=== PATIENT | female | born 1950 | race Caucasian/White ===

== ENCOUNTER → 2017-06-16 | Outpatient (CLI) | payer MEDICARE, OTHER ==
[~2017-06-16] MED LIST: ADV230RPT INH; ALPR-460 PO; ASCO-182 PO; ASPI-1471 PO; AZEL23SP NS; BUDE10.2 INH; CA C1TAB6 PO; CHOL10005 PO; CRESTOR; LEV125 PO; LOVAZA1PT GT; LOVAZA1PT PO; MONT10TA4 PO; NIAC500T85 PO; PROC5TAB2; ROSU5TAB8 PO; SYNTHROID; UBID100C48 PO; VIT1CAPS34 PO; WELCHOL; [UNRECOGNIZED DRUG - OTHER]
--- NOTE | 2017-06-16 15:06 | RADIOLOGY IMAGING REPORT ---
FACILITY: [facility] PATIENT NAME: Eri oRmero : 1950 MR: [id number] V: [id number] EXAM DATE: [id number] ORDERING PHYSICIAN: [employer] BUENO TECHNOLOGIST: Location: [facility] [place] Patient: Eri Romero : 1950 Visit/Account:[id number] Date of Sevice: 06/16/2017 Exam type: CHEST PA AND LAT History: Pleural effusion, postop x5 weeks difficult inspiration Comparison: October 08, 2016. Findings: There is a blunting of the right costophrenic angle and small amount linear consolidation in the righ t lung base. The patient was evaluated sonographically for potential right-sided thoracentesis altho ugh very little free right pleural fluid was noted. There did appear to be a lobular contour along t he pleural surface suggesting possible pleural-based metastases. There are several ill-defined opaci ties projecting over the left lung base could represent atelectasis developing infiltrates or metasta ses. The cardiac silhouette is normal in size. Sternotomy sutures present. There is a right IJ imp lanted port distal tip projects over the superior vena cava. IMPRESSION: 1. Blunting of the right costophrenic angle. Sonographic evaluation demonstrated very little free r ight pleural fluid although there did appear to be nodularity of the pleura worrisome for possible me tastases. Several ill-defined opacities project over the left lung base which may represent atelectasis, develo ping infiltrate or metastases. Depending upon the clinical presentation CT of the chest with contras t may be helpful Report Dictated By: Zulay Weldon MD at 06/16/2017 3:00 PM Report E-Signed By: Zulay Weldon MD at 06/16/2017 3:02 PM WSN:[email or web address]
--- NOTE | 2017-06-16 16:56 | RADIOLOGY IMAGING REPORT ---
FACILITY: [facility] PATIENT NAME: Eri Romero : 1950 MR: [id number] V: [id number] EXAM DATE: ORDERING PHYSICIAN: ISIS BUENO TECHNOLOGIST: Location: [facility] Patient: Eri Romero : 1950 Visit/Account:[id number] Date of Sevice: 06/16/2017 Exam type: Ultrasound of the right thorax History: Evaluate for pleural effusion and possible thoracentesis, history of ovarian cancer Comparison: Two view chest performed earlier today. Findings: There is a small pleural collection on the right also appear to small to attempt a thoracentesis. Th ere was slight nodularity of the pleural surface raising the question of possible pleural-based metas tases. IMPRESSION: 1. Small right pleural collection was too small to attempt a thoracentesis. Slight nodularity of the pleural surface raising the question of possible pleural-based metastases. Depending upon the clinical presentation CT of the thorax with contrast may be helpful Report Dictated By: Zulay Weldon MD at 06/16/2017 4:51 PM Report E-Signed By: Zulay Weldon MD at 06/16/2017 4:53 PM WSN:[email or web address]
== END ==
LOC: RAD 13:34
PROVIDERS: ATTEND Nurse Practitioner Family
DX: J90 Pleural effusion, not elsewhere classified (principal); R91.1 Solitary pulmonary nodule; C56.9 Malignant neoplasm of unspecified ovary; R18.0 Malignant ascites; J45.909 Unspecified asthma, uncomplicated; R06.00 Dyspnea, unspecified
CPT/HCPCS: 32555; 71046; 76604

== ENCOUNTER → 2017-07-01 | Outpatient (CLI) | payer MEDICARE, OTHER | LOC: SPU 08:02 | PROVIDERS: ATTEND Nurse Practitioner Family | DX: E03.9 Hypothyroidism, unspecified (principal) | CPT/HCPCS: 84443 ==

== ENCOUNTER 2017-08-19 16:08 | Inpatient (IN) | payer MEDICARE, OTHER ==
[~2017-08-19] VITALS: Ht 162.6 cm; Wt 63.5 kg
[~2017-08-19 16:08] MED LIST changes: +DRON2.5C10 PO; +ONDA8TAB91 PO
--- NOTE | 2017-08-19 16:12 | ER Report ---
History and Physical Time Seen By MD: 16:16 Hx. of Stated Complaint: positive cdiff fever to 102 HPI/ROS 67 year old stage 4 ovarian cancer carbo=paclitel tx 4 0f 6. on flagyl bid. Started yesterday for C. difficile Flagyl as made her nauseated was concerned with high fever at home came to the ER for evaluation Remainder of the 14 system rev: Yes Allergies: Coded Allergies: Penicillins (Verified Allergy, Unknown, 08/19/17) Home Meds Reported Medications Metronidazole (METRONIDAZOLE) 500 Mg Tablet, BID 08/19/17 Ondansetron Hcl (ZOFRAN) 8 Mg Tablet, 8 MG PO Q8H, TAB 08/18/17 Dronabinol (MARINOL) 2.5 Mg Capsule, 2.5 MG PO BID, CAPSULE 08/18/17 Prochlorperazine Maleate (Compazine) 5 Mg Tablet, 1-3XD 06/12/17 Fluticasone/Salmeterol (ADVAIR HFA 230-21 MCG INHALER) 1 Inh Inh, 1 INH INH, INH 06/12/17 Azelastine/Fluticasone (DYMISTA NASAL SPRAY) 23 Gm Sage.pump, 23 GM NS BID 01/01/17 Aspirin (ASPIR 81) 81 Mg Tablet.dr, 81 MG PO QDAY, TAB 01/01/17 [place] 3 Polyunsat Fatty Acids (LOVAZA) 1 Gm Cap, 1 GM PO TID, CAP 01/01/17 Ca Carbonate/Vitamin D3/Vit K (CALCIUM + D SOFT CHEWABLE TAB) 1 Each Tab.chew, 1 EACH PO DAILY, TAB.CHEW 01/01/17 Ascorbic Acid (VITAMIN C) 500 Mg Tablet, 500 MG PO DAILY, TAB 01/01/17 Vit A/Vit C/Vit E/Zinc/Copper (PRESERVISION AREDS SOFTGEL) 1 Each Capsule, 1 EACH PO DAILY, CAPSULE 01/01/17 Niacin (NIACIN) 500 Mg Tablet, 500 MG PO QDAY 01/01/17 Ubidecarenone (COQ-10) 100 Mg Capsule, 100 MG PO DAILY, CAPSULE 01/01/17 Cholecalciferol (Vitamin D3) (VITAMIN D3) 1,000 Unit Tablet, 1000 UNIT PO DAILY , TAB 01/01/17 Montelukast Sodium (MONTELUKAST SODIUM) 10 Mg Tablet, 1 TAB PO QDAY, TAB 01/01/17 Levothyroxine Sodium (LEVOTHYROXINE SODIUM) 0.125 Mg Tab, 100 MCG PO QDAY, TAB 01/23/13 Rosuvastatin Calcium (CRESTOR) 5 Mg Tablet, 10 MG PO QDAY 01/23/13 Budesonide/Formoterol Fumarate (SYMBICORT 160-4.5 MCG INHALER) 10.2 Gm Inh, 10.2 GM INH, INH 01/23/13 Alprazolam (ALPRAZOLAM) 0.5 Mg Tab.rapdis, 0.5 MG PO HS Y for INSOMNIA, TAB 01/23/13 Past Medical/Surgical History stage 4 ovarian ca, cabg Reviewed Nurses Notes: Yes Old Medical Records Reviewed: Yes Hx Smoking: Yes (QUIT IN 1984) Smoking Status: Former Smoker Exposure to Second Hand Smoke?: Yes Hx Alcohol Use: Yes Family History of: HTN, Other Constitutional Vital Sign - Last 24 Hours 08/19/17 08/19/17 08/19/17 08/19/17 16:10 16:16 16:23 16:30 Temp 100.4 Pulse 96 96 Resp 18 B/P (MAP) 107/78 107/78 (88) 101/70 (80) Pulse Ox 91 O2 Delivery Room Air 08/19/17 08/19/17 08/19/17 08/19/17 16:38 16:45 16:53 17:00 Pulse 94 97 B/P (MAP) 101/65 (77) 107/74 (85) Pulse Ox 90 91 08/19/17 08/19/17 08/19/17 08/19/17 17:08 17:13 17:15 17:30 Pulse 93 94 B/P (MAP) 102/68 (79) 115/74 (88) Pulse Ox 92 91 08/19/17 08/19/17 08/19/17 08/19/17 17:35 17:50 18:00 18:05 Pulse 94 91 89 B/P (MAP) 112/75 (87) Pulse Ox 92 93 91 08/19/17 08/19/17 08/19/17 08/19/17 18:10 18:15 18:25 18:34 Pulse 89 90 B/P (MAP) 109/87 (94) 145/82 (103) Pulse Ox 91 91 08/19/17 08/19/17 08/19/17 08/19/17 18:40 18:45 18:55 19:00 Pulse 91 91 B/P (MAP) 138/125 (129) 118/80 (93) Pulse Ox 90 90 08/19/17 08/19/17 19:15 19:20 Pulse 89 B/P (MAP) 113/74 (87) Pulse Ox 91 Intake and Output 08/19/17 08/19/17 08/20/17 15:00 23:00 07:00 Intake Total 250 ml Balance 250 ml Physical Exam 67 YEAR OLD FEMALE alert oriented anxious HEENT has normocephalic/atraumatic tympanic membranes are non-reddened throat is non-reddened neck is supple no JVD heart rate regular no murmurs rubs or gallops lungs clear to auscultation abdomen is soft bowel sounds 4 quadrants moves all extremities no peripheral pulses Medical Decision Making Data Points Result Diagram: 08/19/17 1633 08/19/17 1633 Laboratory Hematology Test 08/19/17 16:33 08/19/17 17:19 Red Blood Count 3.21 M/uL (4.17-5.56) Mean Corpuscular Volume 91.9 fL (80.0-96.0) Mean Corpuscular Hemoglobin 32.4 pg (26.0-33.0) Mean Corpuscular Hemoglobin Concent 35.3 g/dL (32.0-36.0) Red Cell Distribution Width 20.2 % (11.5-14.5) Mean Platelet Volume 7.8 fL (7.2-11.1) Neutrophils (%) (Auto) 59.6 % (39.4-72.5) Lymphocytes (%) (Auto) 18.1 % (17.6-49.6) Monocytes (%) (Auto) 10.3 % (4.1-12.4) Eosinophils (%) (Auto) 10.9 % (0.4-6.7) Basophils (%) (Auto) 1.1 % (0.3-1.4) Nucleated RBC Relative Count (auto) 0.0 /100WBC Neutrophils # (Auto) 2.2 K/uL (2.0-7.4) Lymphocytes # (Auto) 0.7 K/uL (1.3-3.6) Monocytes # (Auto) 0.4 K/uL (0.3-1.0) Eosinophils # (Auto) 0.4 K/uL (0.0-0.5) Basophils # (Auto) 0.0 K/uL (0.0-0.1) Nucleated RBC Absolute Count (auto) 0.00 K/uL Peripheral Blood Smear Yes Y/N Sodium Level 134 mmol/L (137-145) Potassium Level 3.4 mmol/L (3.5-5.0) Chloride Level 99 mmol/L (98-107) Carbon Dioxide Level 23 mmol/L (22-31) Blood Urea Nitrogen 8 mg/dl (7-18) Creatinine 0.50 mg/dl (0.52-1.04) Glomerular Filtration Rate Calc > 60.0 Random Glucose 153 mg/dl (75-110) Lactate 1.1 mmol/L (0.7-2.1) Calcium Level 8.2 mg/dl (8.4-10.2) Total Bilirubin 0.5 mg/dl (0.2-1.3) Aspartate Amino Transf (AST/SGOT) 21 U/L (0-35) Alanine Aminotransferase (ALT/SGPT) 27 U/L (0-56) Alkaline Phosphatase 66 U/L (0-126) Troponin I < 0.012 ng/ml Total Protein 5.7 g/dl (6.3-8.2) Albumin 3.0 g/dl (3.5-5.0) Amylase Level 69 U/L (0-110) Lipase 96 U/L (23-300) Urine Color Yellow Urine Clarity Clear Urine pH 5.0 pH (4.8-9.5) Urine Specific [place] 1.013 Urine Protein Negative mg/dL (NEGATIVE) Urine Glucose (UA) Negative mg/dL (NEGATIVE) Urine Ketones Negative mg/dL (NEGATIVE) Urine Blood Negative (NEGATIVE) Urine Nitrite Negative (NEGATIVE) Urine Bilirubin Negative (NEGATIVE) Urine Urobilinogen 2.0 mg/dL (0.2-1.9) Urine Leukocyte Esterase Small (NEGATIVE) Urine RBC <1 /HPF (0-2/HPF) Urine WBC 1 /HPF (0-5/HPF) Urine Squamous Epithelial Cells Moderate /LPF (</=FEW) Urine Bacteria Negative /HPF (NONE-FEW) Urine Hyaline Casts Few /LPF (NONE-FEW) Urine Mucus Few /HPF (NONE-FEW) Chemistry Test 08/19/17 16:33 08/19/17 17:19 White Blood Count 3.7 k/uL (4.5-11.0) Red Blood Count 3.21 M/uL (4.17-5.56) Hemoglobin 10.4 g/dL (12.0-16.0) Hematocrit 29.5 % (34.0-47.0) Mean Corpuscular Volume 91.9 fL (80.0-96.0) Mean Corpuscular Hemoglobin 32.4 pg (26.0-33.0) Mean Corpuscular Hemoglobin Concent 35.3 g/dL (32.0-36.0) Red Cell Distribution Width 20.2 % (11.5-14.5) Platelet Count 18 K/uL (150-450) Mean Platelet Volume 7.8 fL (7.2-11.1) Neutrophils (%) (Auto) 59.6 % (39.4-72.5) Lymphocytes (%) (Auto) 18.1 % (17.6-49.6) Monocytes (%) (Auto) 10.3 % (4.1-12.4) Eosinophils (%) (Auto) 10.9 % (0.4-6.7) Basophils (%) (Auto) 1.1 % (0.3-1.4) Nucleated RBC Relative Count (auto) 0.0 /100WBC Neutrophils # (Auto) 2.2 K/uL (2.0-7.4) Lymphocytes # (Auto) 0.7 K/uL (1.3-3.6) Monocytes # (Auto) 0.4 K/uL (0.3-1.0) Eosinophils # (Auto) 0.4 K/uL (0.0-0.5) Basophils # (Auto) 0.0 K/uL (0.0-0.1) Nucleated RBC Absolute Count (auto) 0.00 K/uL Peripheral Blood Smear Yes Y/N Glomerular Filtration Rate Calc > 60.0 Lactate 1.1 mmol/L (0.7-2.1) Calcium Level 8.2 mg/dl (8.4-10.2) Total Bilirubin 0.5 mg/dl (0.2-1.3) Aspartate Amino Transf (AST/SGOT) 21 U/L (0-35) Alanine Aminotransferase (ALT/SGPT) 27 U/L (0-56) Alkaline Phosphatase 66 U/L (0-126) Troponin I < 0.012 ng/ml Total Protein 5.7 g/dl (6.3-8.2) Albumin 3.0 g/dl (3.5-5.0) Amylase Level 69 U/L (0-110) Lipase 96 U/L (23-300) Urine Color Yellow Urine Clarity Clear Urine pH 5.0 pH (4.8-9.5) Urine Specific [place] 1.013 Urine Protein Negative mg/dL (NEGATIVE) Urine Glucose (UA) Negative mg/dL (NEGATIVE) Urine Ketones Negative mg/dL (NEGATIVE) Urine Blood Negative (NEGATIVE) Urine Nitrite Negative (NEGATIVE) Urine Bilirubin Negative (NEGATIVE) Urine Urobilinogen 2.0 mg/dL (0.2-1.9) Urine Leukocyte Esterase Small (NEGATIVE) Urine RBC <1 /HPF (0-2/HPF) Urine WBC 1 /HPF (0-5/HPF) Urine Squamous Epithelial Cells Moderate /LPF (</=FEW) Urine Bacteria Negative /HPF (NONE-FEW) Urine Hyaline Casts Few /LPF (NONE-FEW) Urine Mucus Few /HPF (NONE-FEW) Urinalysis Test 08/19/17 17:19 Urine Color Yellow Urine Clarity Clear Urine pH 5.0 pH (4.8-9.5) Urine Specific [place] 1.013 Urine Protein Negative mg/dL (NEGATIVE) Urine Glucose (UA) Negative mg/dL (NEGATIVE) Urine Ketones Negative mg/dL (NEGATIVE) Urine Blood Negative (NEGATIVE) Urine Nitrite Negative (NEGATIVE) Urine Bilirubin Negative (NEGATIVE) Urine Urobilinogen 2.0 mg/dL (0.2-1.9) Urine Leukocyte Esterase Small (NEGATIVE) Urine RBC <1 /HPF (0-2/HPF) Urine WBC 1 /HPF (0-5/HPF) Urine Squamous Epithelial Cells Moderate /LPF (</=FEW) Urine Bacteria Negative /HPF (NONE-FEW) Urine Hyaline Casts Few /LPF (NONE-FEW) Urine Mucus Few /HPF (NONE-FEW) EKG/Imaging Imaging [place] [facility] [place]IENT NAME: Eri Romero : 1950 MR: [id number] V: [id number] EXAM DATE: [id number] ORDERING PHYSICIAN: ИВАН HONG TECHNOLOGIST: Location: [facility] - [place] Patient: Eri Romero : 1950 Visit/Account:[id number] Date of Sevice: 08/19/2017 Chest single view: HISTORY: Fever, stage IV ovarian cancer. No chest pain. COMPARISON: 06/16/2017 FINDINGS: Portable chest 1653 hours: Heart and mediastinal contours are normal. There is persistent blunting of the right costophrenic angle suggesting a small pleural effusion or pleural thickening similar to previous. Rounded pleural- based opacity present in the right lung base. Interstitial markings are present in the right lung, asymmetric compared to the opposite side. Left lung is clear. There is no left pleural effusion or pneumothorax. Changes of median sternotomy are noted. Right chest port is unchanged. IMPRESSION: 1. Persistent blunting of right costophrenic sulcus and pleural-based opacity, appears is similar to the prior study of 06/16/2017. Findings could be secondary to an infectious or inflammatory process but given the chronicity, this is felt to be less likely. 2. Left lung is clear. Report Dictated By: Jen Godwin MD at 08/19/2017 5:08 PM Report E-Signed By: Jen Godwin MD at 08/19/2017 5:16 PM WSN:[id number]: [facility] [place] NAME: Eri Romero : 1950 MR: [id number] V: [id number] EXAM DATE: [id number] ORDERING PHYSICIAN: ИВАН HONG TECHNOLOGIST: Location: [facility] - [place] Patient: Eri Romero : 1950 Visit/Account:[id number] Date of Sevice: 08/19/2017 COMPUTED TOMOGRAPHY OF THE Abdomen and Pelvis with CONTRAST INDICATION: Abdominal pain. TECHNIQUE: Contiguous axial 3.[address] images were obtained through the abdomen and pelvis after 75 cc Isovue-370. Coronal and sagittal reformatted images were submitted. COMPARISON: No prior cross-sectional imaging is available for direct comparison. FINDINGS: Lung bases: There is a small right pleural effusion which may have loculations given both a posterior and anterior component and wall thickening. Adjacent atelectasis is mild. Trace atelectasis in the left lobe. Liver and hepatic vasculature: No apparent liver lesion. No ascites. Mild fatty infiltration adjacent to the falciform. Gallbladder and bile ducts: Normal gallbladder. Spleen: Normal spleen. Pancreas: Normal pancreas. Adrenals: Normal. Kidneys, ureters and bladder: No hydronephrosis or collecting system obstruction. Symmetric renal enhancement. The bladder is incompletely filled but grossly unremarkable. Retroperitoneum and aorta: Moderate aortic atherosclerosis. No aneurysm. GI tract, mesentery and peritoneum: There is a surgical anastomosis involving the sigmoid colon in the left lower abdomen. The rectosigmoid colon and left colon has a thick wall with mild surrounding inflammation. A few mesenteric lymph nodes are enlarged both in the midabdomen and right lower quadrant. Mild stranding adjacent to the cecum could be fluid in the right paracolic gutter but could also be from colitis. Uterus and adnexa: Surgically absent uterus. Bones and soft tissues: There is stranding along the midline incision. A discrete fluid collection is not identified. No acute osseous abnormality. IMPRESSION: 1. Wall thickening and inflammation along the course of the rectosigmoid colon and left colon as well as the cecum suggests colitis. 2. Small right pleural effusion with fluid both posteriorly and anteriorly and peripheral wall thickening may represent underlying loculation. 3. Additional chronic findings as above. One of the following dose optimization techniques was utilized in the performance of this exam: Automated exposure control; adjustment of the mA and/ or kV according to the patient's size; or use of an iterative reconstruction technique. Specific details can be referenced in the facility's radiology CT exam operational policy. Report Dictated By: Stacey Guillen MD at 08/19/2017 6:02 PM Report E-Signed By: Stacey Guillen MD at 08/19/2017 6:18 PM WSN:[id number] ED Course/Re-evaluation ED Course C. difficile was diagnosed in oncology clinic and started on Flagyl yesterday him nauseated with Flagyl high fevers today some low abdominal pain CT is showing colitis picture also sees shows a loculated right lower lobe effusion and her lung effusion has been there before has not been noted to be loculated have talked to hospitalist Dr. Thompson will admit observation for fluids overnight start her on oral vancomycin Re-evaluation Feels better with IV fluids diagnoses did history of stage IV ovarian cancer currently receiving chemotherapy Decision to Disposition Date: Aug 19, 2017 Decision to Disposition Time: 18:47 Depart Departure Latest Vital Signs Vital Signs Date Time Temp Pulse Resp B/P (MAP) Pulse Ox O2 Delivery O2 Flow Rate FiO2 08/19/17 19:20 89 91 08/19/17 19:15 113/74 (87) 08/19/17 16:10 100.4 18 Room Air Impression: Primary Impression: Ovarian cancer Additional Impressions: C. difficile colitis C. difficile diarrhea Condition: Improved Disposition: Admitted from ER Referrals: LANA VERA (PCP) Problem Qualifiers ИВАН HONG Aug 19, 2017 16:12
[2017-08-19] MEDS ORDERED: METR-160 (16:18)
[2017-08-19] MEDS ORDERED: NS(*) 0.9% 1000 ML BAG 1,000 ML IV ONE (16:25)
[2017-08-19] MEDS ORDERED: VANCOMYCIN 1 GM ADDVIAL 1 GM in NS(*) 0.9% 250 ML ADDVAN BAG 250 ML IVPB ONE (16:35)
--- NOTE | 2017-08-19 16:55 | EKG ---
FACILITY: [facility] PATIENT NAME: FAVIO REICH : [id number] MR: [id number] V: [id number] EXAM DATE: ORDERING PHYSICIAN: ИВАН HONG TECHNOLOGIST: LEONORA Guy Reason : Blood Pressure : / mmHG Vent. Rate : 094 BPM Atrial Rate : 094 BPM P-R Int : 136 ms QRS Dur : 082 ms QT Int : 360 ms P-R-T Axes : 007 -13 -13 degrees QTc Int : 450 ms Sinus rhythm Borderline left axis Low voltage QRS Nonspecific interventricular conduction delay Possible previous septal infarct Nonspecific T wave flattening Abnormal ECG Confirmed by SUDHIR MARSH ([id number]) on 08/19/2017 6:24:15 PM Referred By: Confirmed By:SUDHIR MARSH
[2017-08-19 17:13] LABS: PLATELET COUNT, AUTOMATED 18 K/uL (150-450)
--- NOTE | 2017-08-19 17:20 | RADIOLOGY IMAGING REPORT ---
FACILITY: [facility] PATIENT NAME: Eri Romero : 1950 MR: [id number] V: [id number] EXAM DATE: ORDERING PHYSICIAN: ИВАН HONG TECHNOLOGIST: Location: [facility] - [place] Patient: Eri Romero : 1950 Visit/Account:[id number] Date of Sevice: 08/19/2017 Chest single view: HISTORY: Fever, stage IV ovarian cancer. No chest pain. COMPARISON: 06/16/2017 FINDINGS: Portable chest 1653 hours: Heart and mediastinal contours are normal. There is persistent b lunting of the right costophrenic angle suggesting a small pleural effusion or pleural thickening sim ilar to previous. Rounded pleural-based opacity present in the right lung base. Interstitial markings are present in the right lung, asymmetric compared to the opposite side. Left lung is clear. There i s no left pleural effusion or pneumothorax. Changes of median sternotomy are noted. Right chest port is unchanged. IMPRESSION: 1. Persistent blunting of right costophrenic sulcus and pleural-based opacity, appears is similar to the prior study of 06/16/2017. Findings could be secondary to an infectious or inflammatory process bu t given the chronicity, this is felt to be less likely. 2. Left lung is clear. Report Dictated By: Jen Godwin MD at 08/19/2017 5:08 PM Report E-Signed By: Jen Godwin MD at 08/19/2017 5:16 PM WSN:[id number]
[2017-08-19] MEDS ORDERED: IOPAMIDOL 76% 75 ML INFUS BTL 75 ML ONE (17:41)
--- NOTE | 2017-08-19 18:22 | RADIOLOGY IMAGING REPORT ---
FACILITY: [facility] - [place] PATIENT NAME: Eri Romero : 1950 MR: [id number] V: [id number] EXAM DATE: ORDERING PHYSICIAN: ИВАН HONG TECHNOLOGIST: Location: [facility] - [place] Patient: Eri Romero : 1950 Visit/Account:[id number] Date of Sevice: 08/19/2017 COMPUTED TOMOGRAPHY OF THE Abdomen and Pelvis with CONTRAST INDICATION: Abdominal pain. TECHNIQUE: Contiguous axial 3.[address] images were obtained through the abdomen and pelvis after 75 c c Isovue-370. Coronal and sagittal reformatted images were submitted. COMPARISON: No prior cross-sectional imaging is available for direct comparison. FINDINGS: Lung bases: There is a small right pleural effusion which may have loculations given both a posterior and anterior component and wall thickening. Adjacent atelectasis is mild. Trace atelectasis in the l eft lobe. Liver and hepatic vasculature: No apparent liver lesion. No ascites. Mild fatty infiltration adjacen t to the falciform. Gallbladder and bile ducts: Normal gallbladder. Spleen: Normal spleen. Pancreas: Normal pancreas. Adrenals: Normal. Kidneys, ureters and bladder: No hydronephrosis or collecting system obstruction. Symmetric renal en hancement. The bladder is incompletely filled but grossly unremarkable. Retroperitoneum and aorta: Moderate aortic atherosclerosis. No aneurysm. GI tract, mesentery and peritoneum: There is a surgical anastomosis involving the sigmoid colon in th e left lower abdomen. The rectosigmoid colon and left colon has a thick wall with mild surrounding in flammation. A few mesenteric lymph nodes are enlarged both in the midabdomen and right lower quadrant . Mild stranding adjacent to the cecum could be fluid in the right paracolic gutter but could also be from colitis. Uterus and adnexa: Surgically absent uterus. Bones and soft tissues: There is stranding along the midline incision. A discrete fluid collection is not identified. No acute osseous abnormality. IMPRESSION: 1. Wall thickening and inflammation along the course of the rectosigmoid colon and left colon as well as the cecum suggests colitis. 2. Small right pleural effusion with fluid both posteriorly and anteriorly and peripheral wall thicke vikas may represent underlying loculation. 3. Additional chronic findings as above. One of the following dose optimization techniques was utilized in the performance of this exam: Autom ated exposure control; adjustment of the mA and/or kV according to the patient's size; or use of an i terative reconstruction technique. Specific details can be referenced in the facility's radiology C T exam operational policy. Report Dictated By: Stacey Guillen MD at 08/19/2017 6:02 PM Report E-Signed By: Stacey Guillen MD at 08/19/2017 6:18 PM WSN:[id number]
[2017-08-19 20:02] VITALS: BP 130/73
[2017-08-19] MEDS ORDERED: LEVO-3 PO (20:24)
[2017-08-19] MEDS ORDERED: NS(*) 0.9% 1000 ML BAG 1,000 ML IV PRN (20:55)
[2017-08-19] MEDS ORDERED: ALPRAZolam 0.5 MG TAB PO PRN (20:55)
[2017-08-19] MEDS ORDERED: DRONABINOL 2.5 MG CAP PO SCH (21:00)
--- NOTE | 2017-08-19 21:04 | History & Physical ---
History of Present Illness Chief Complaint Diarrhea History of Present Illness 67yo female with PMHx significant for Stage IV ovarian cancer s/p debulking surgery followed by carboplatin/paclitaxel chemotherapy. Over the past several days, she has been having frequent non-bloody, yellowish, watery stools upwards of 12-15 times a day. It has been associated with fever, nausea, poor appetite, malaise, weakness. She was evaluated in the oncology clinic and found to be clostridium difficile positive. She does not recall having any antibiotics in the past few months. She was placed on oral metronidazole yesterday without any significant change today. She was then evaluated [facility] and found to have fever. Her labs show WBC count of 3.7K with ANC approximately 2200. Her platelet count was significantly low at 18K. She was recommended for admission. History Problems: (1) Hypothyroidism Status: Chronic (2) Ovarian cancer Status: Chronic (3) History of laparotomy Status: Resolved (4) C. difficile colitis Status: Acute (5) CAD (coronary artery disease) Status: Chronic (6) S/P CABG (coronary artery bypass graft) Status: Chronic (7) HTN (hypertension) Status: Chronic (8) Hypercholesteremia Status: Chronic (9) Asthma Status: Chronic Home Meds Reported Medications Levothyroxine Sodium (LEVOTHYROXINE SODIUM) 100 Mcg Tablet, 100 MCG PO QDAY, TAB 08/19/17 Dronabinol (MARINOL) 2.5 Mg Capsule, 2.5 MG PO BID, CAPSULE 08/18/17 Prochlorperazine Maleate (Compazine) 5 Mg Tablet, 1-3XD 06/12/17 Fluticasone/Salmeterol (ADVAIR HFA 230-21 MCG INHALER) 1 Inh Inh, 1 INH INH, INH 06/12/17 Aspirin (ASPIR 81) 81 Mg Tablet.dr, 81 MG PO QDAY, TAB 01/01/17 [place] 3 Polyunsat Fatty Acids (LOVAZA) 1 Gm Cap, 1 GM PO TID, CAP 01/01/17 Ca Carbonate/Vitamin D3/Vit K (CALCIUM + D SOFT CHEWABLE TAB) 1 Each Tab.chew, 1 EACH PO DAILY, TAB.CHEW 01/01/17 Ascorbic Acid (VITAMIN C) 500 Mg Tablet, 500 MG PO DAILY, TAB 01/01/17 Vit A/Vit C/Vit E/Zinc/Copper (PRESERVISION AREDS SOFTGEL) 1 Each Capsule, 1 EACH PO DAILY, CAPSULE 01/01/17 Niacin (NIACIN) 500 Mg Tablet, 500 MG PO QDAY 01/01/17 Ubidecarenone (COQ-10) 100 Mg Capsule, 100 MG PO DAILY, CAPSULE 01/01/17 Cholecalciferol (Vitamin D3) (VITAMIN D3) 1,000 Unit Tablet, 1000 UNIT PO DAILY , TAB 01/01/17 Montelukast Sodium (MONTELUKAST SODIUM) 10 Mg Tablet, 1 TAB PO QDAY, TAB 01/01/17 Rosuvastatin Calcium (CRESTOR) 5 Mg Tablet, 10 MG PO QDAY 01/23/13 Alprazolam (ALPRAZOLAM) 0.5 Mg Tab.rapdis, 0.5 MG PO HS Y for INSOMNIA, TAB 01/23/13 Discontinued Reported Medications Metronidazole (METRONIDAZOLE) 500 Mg Tablet, BID 08/19/17 Ondansetron Hcl (ZOFRAN) 8 Mg Tablet, 8 MG PO Q8H, TAB 08/18/17 Azelastine/Fluticasone (DYMISTA NASAL SPRAY) 23 Gm [place].pump, 23 GM NS BID 01/01/17 Levothyroxine Sodium (LEVOTHYROXINE SODIUM) 0.125 Mg Tab, 100 MCG PO QDAY, TAB 01/23/13 Budesonide/Formoterol Fumarate (SYMBICORT 160-4.5 MCG INHALER) 10.2 Gm Inh, 10.2 GM INH, INH 01/23/13 Allergies: Coded Allergies: Penicillins (Verified Allergy, Unknown, 08/19/17) Hx Smoking: Yes (QUIT IN 1984) Smoking Status: Former Smoker Exposure to Second Hand Smoke?: Yes Caffeine Intake: Coffee Caffeine/Cups Per Day: 1 Hx Alcohol Use: Yes Hx Substance Use Disorder: No Social Drug Use: Never Review of Systems Constitutional: Fever Neurological: Weakness Gastrointestinal: Nausea, Diarrhea Genitourinary: No Dysuria Exam Vital Signs Vital Signs Date Time Temp Pulse Resp B/P (MAP) Pulse Ox O2 Delivery O2 Flow Rate FiO2 08/19/17 20:02 92 Room Air 08/19/17 20:02 100.5 90 20 130/73 (92) General Appearance: Alert, Awake Neuro: No Gross deficits Eyes: PERRLA ENT: Oropharynx Clear Cardiovascular: Regular Rate and Rhythm Respiratory: Clear to Auscultation GI: Other (Soft/BS present/healed laparotomy scar) Extremities: Warm, Perfused Psych: Alert & Oriented X3 Medical Decision Making Data Points Result Diagram: 08/19/17 1633 08/19/17 1633 Item Value Date Time Troponin I < 0.012 ng/ml 08/19/17 1633 Lipase 96 U/L 08/19/17 1633 Amylase Level 69 U/L 08/19/17 1633 Albumin 3.0 g/dl L 08/19/17 1633 Total Protein 5.7 g/dl L 08/19/17 1633 Alkaline Phosphatase 66 U/L 08/19/17 1633 Alanine Aminotransferase (ALT/SGPT) 27 U/L 08/19/17 1633 Aspartate Amino Transf (AST/SGOT) 21 U/L 08/19/17 1633 Total Bilirubin 0.5 mg/dl 08/19/17 1633 Calcium Level 8.2 mg/dl L 08/19/17 1633 Lactate 1.1 mmol/L 08/19/17 1633 Clostridium Difficile Toxin A & B Positive 08/18/17 1700 Clostridium difficile Antigen Positive 08/18/17 1700 Stool Leukocytes, Qualitative Positive 08/18/17 1700 Stool Occult Blood (IFOB) Positive H 08/18/17 1700 Urine Color Yellow 08/19/17 1719 Urine Clarity Clear 08/19/179 Urine pH 5.0 pH 08/19/17 1719 Urine Specific [place] 1.013 08/19/17 1719 Urine Protein Negative mg/dL 08/19/17 1719 Urine Glucose (UA) Negative mg/dL 08/19/17 1719 Urine Ketones Negative mg/dL 08/19/17 1719 Urine Blood Negative 08/19/17 1719 Urine Nitrite Negative 08/19/17 1719 Urine Bilirubin Negative 08/19/17 1719 Urine Urobilinogen 2.0 mg/dL 08/19/17 1719 Urine Leukocyte Esterase Small H 08/19/17 1719 Urine RBC <1 /HPF 08/19/17 1719 Urine WBC 1 /HPF 08/19/17 1719 Urine Squamous Epithelial Cells Moderate /LPF H 08/19/17 1719 Urine Bacteria Negative /HPF 08/19/17 1719 Urine Hyaline Casts Few /LPF 08/19/171718 Urine Mucus Few /HPF 08/19/171718 EKG / Imaging Imaging PATIENT NAME: Eri Romero : 1950 MR: [id number] V: [id number] EXAM DATE: ORDERING PHYSICIAN: ИВАН HONG TECHNOLOGIST: Location: [facility] Patient: Eri Romero : 1950 Visit/Account:[id number] Date of Sevice: 08/19/2017 COMPUTED TOMOGRAPHY OF THE Abdomen and Pelvis with CONTRAST INDICATION: Abdominal pain. TECHNIQUE: Contiguous axial 3.[address] images were obtained through the abdomen and pelvis after 75 cc [id number]-[id number]. Coronal and sagittal reformatted images were submitted. COMPARISON: No prior cross-sectional imaging is available for direct comparison. FINDINGS: Lung bases: There is a small right pleural effusion which may have loculations given both a posterior and anterior component and wall thickening. Adjacent atelectasis is mild. Trace atelectasis in the left lobe. Liver and hepatic vasculature: No apparent liver lesion. No ascites. Mild fatty infiltration adjacent to the falciform. Gallbladder and bile ducts: Normal gallbladder. Spleen: Normal spleen. Pancreas: Normal pancreas. Adrenals: Normal. Kidneys, ureters and bladder: No hydronephrosis or collecting system obstruction. Symmetric renal enhancement. The bladder is incompletely filled but grossly unremarkable. Retroperitoneum and aorta: Moderate aortic atherosclerosis. No aneurysm. GI tract, mesentery and peritoneum: There is a surgical anastomosis involving the sigmoid colon in the left lower abdomen. The rectosigmoid colon and left colon has a thick wall with mild surrounding inflammation. A few mesenteric lymph nodes are enlarged both in the midabdomen and right lower quadrant. Mild stranding adjacent to the cecum could be fluid in the right paracolic gutter but could also be from colitis. Uterus and adnexa: Surgically absent uterus. Bones and soft tissues: There is stranding along the midline incision. A discrete fluid collection is not identified. No acute osseous abnormality. IMPRESSION: 1. Wall thickening and inflammation along the course of the rectosigmoid colon and left colon as well as the cecum suggests colitis. 2. Small right pleural effusion with fluid both posteriorly and anteriorly and peripheral wall thickening may represent underlying loculation. 3. Additional chronic findings as above. One of the following dose optimization techniques was utilized in the performance of this exam: Automated exposure control; adjustment of the mA and/ or kV according to the patient's size; or use of an iterative reconstruction technique. Specific details can be referenced in the facility's radiology CT exam operational policy. Report Dictated By: Stacey Guillen MD at 08/19/2017 6:02 PM Report E-Signed By: Stacey Guillen MD at 08/19/2017 6:18 PM [id number] PATIENT NAME: Eri Romero : 1950 MR: [id number] V: [id number] EXAM DATE: [id number] ORDERING PHYSICIAN: ИВАН HONG TECHNOLOGIST: Location: [facility] Patient: Eri Romero : 1950 Visit/Account:[id number] Date of Sevice: 08/19/2017 Chest single view: HISTORY: Fever, stage IV ovarian cancer. No chest pain. COMPARISON: 06/16/2017 FINDINGS: Portable chest 1653 hours: Heart and mediastinal contours are normal. There is persistent blunting of the right costophrenic angle suggesting a small pleural effusion or pleural thickening similar to previous. Rounded pleural- based opacity present in the right lung base. Interstitial markings are present in the right lung, asymmetric compared to the opposite side. Left lung is clear. There is no left pleural effusion or pneumothorax. Changes of median sternotomy are noted. Right chest port is unchanged. IMPRESSION: 1. Persistent blunting of right costophrenic sulcus and pleural-based opacity, appears is similar to the prior study of 06/16/2017. Findings could be secondary to an infectious or inflammatory process but given the chronicity, this is felt to be less likely. 2. Left lung is clear. Report Dictated By: Jen Godwin MD at 08/19/2017 5:08 PM Report E-Signed By: Jen Godwin MD at 08/19/2017 5:16 PM [id number] Assessment and Plan Problems: (1) C. difficile colitis Status: Acute Assessment & Plan: She does not appear to be tolerating (or responding to) the oral metronidazole. Will admit for IV fluids, oral vancomycin, anti-emetics as needed. Will let her eat as she tolerates. Watch labs. (2) Ovarian cancer Status: Chronic Assessment & Plan: She has [facility] receiving [facility]. She did receive Neulasta after her recent chemo. Will watch counts closely. (3) Hypothyroidism Status: Chronic Assessment & Plan: Continue replacement therapy. (4) CAD (coronary artery disease) Status: Chronic Assessment & Plan: She appears to be stable from this standpoint. Will resume her aspirin therapy after she starts to take oral better and her platelet count improves. Will also restart her statin therapy after she begins to eat better. Copies to: LANA VERA Venous Thromboembolism Antithrombotics Is Pt On Any Antithrombotics?: No Prophylaxis Tx Contraindicated Pharmacological Contraindicati: Low Platelet Count Exam Sepsis Risk: No Definite Risk SUDHIR MARSH MD Aug 19, 2017 21:04
[2017-08-19] MEDS ORDERED: KCL 2 MEQ/ML 20 MEQ/10 ML VIAL 20 MEQ in NS(*) 0.9% 1000 ML BAG 1,000 ML IV PRN (21:19)
[2017-08-19] MEDS: ACETAMINOPHEN 325 MG TAB PO PRN (21:32)
[2017-08-19] MEDS: VANCOMYCIN HCL 125 MG CAPSULE PO SCH (21:32)
[2017-08-20] VITALS (8 sets, daily range): BP systolic 99–129; BP diastolic 54–69; Ht 162.6 cm; Wt 63.5 kg
[2017-08-20] MEDS: PROMETHAZINE 25 MG/ML 1 ML AMP IVP PRN ×4 (00:10→21:04)
[2017-08-20] MEDS ORDERED: LEVOTHYROXINE SOD 0.1 MG TAB PO SCH ×2 (06:00→21:00)
[2017-08-20 06:50] LABS: PLATELET COUNT, AUTOMATED 16 K/uL (150-450)
[2017-08-20] MEDS ORDERED: KCL/NS* 20 MEQ/1000 ML PREMIX 1,000 ML IV PRN ×2 (07:10)
[2017-08-20] MEDS ORDERED: KCL/NS* 20 MEQ/1000 ML PREMIX 1,000 ML IV SCH (07:30)
[2017-08-20] MEDS ORDERED: ONDANSETRON 4 MG/2 ML VIAL IVP PRN (08:15)
[2017-08-20] MEDS: MONTELUKAST SODIUM 10 MG TAB PO SCH (08:41)
[2017-08-20] MEDS: VANCOMYCIN HCL 125 MG CAPSULE PO SCH ×4 (08:41→21:03)
[2017-08-20] MEDS: LACTOBACILLUS ACIDOPHILUS TAB PO SCH ×2 (08:41→16:52)
[2017-08-20] MEDS: metroNIDAZOLE* 500MG/100ML BAG 100 ML IVPB SCH ×2 (08:56→16:52)
[2017-08-20] MEDS ORDERED: MAGNESIUM SUL* 2 GM/50 ML IVPB 50 ML IVPB ONE (10:00)
[2017-08-20] MEDS: ACETAMINOPHEN 325 MG TAB PO PRN ×2 (10:09→18:24)
--- NOTE | 2017-08-20 10:46 | Oncology Progress Note ---
History of Present Illness Evaluation Evaluation Date: Aug 20, 2017 Evaluation Time: 09:00 Primary Care Provider Primary Care Provider: FAVIAN CARRASQUILLO MD; LANA VERA Accompanied by Accompanied by: Significant other Last seen by : Russell on 07/23/2017 Chief Complaint Chief Complaint: C-diff, fever at home Oncology History Oncology History: - March of 2017 after admission to [facility] Initial presentation were complaints of abdominal pain and dyspnea. Diagnosis of adenocarcinoma favoring a gynecologic primary was made via pleural fluid obtained by thoracentesis. - May 08 2017 Plans were made to have her go for laparotomy, VANIA-BSO, and tumor debulking. - May 14, 2017 surgery was performed on and she was optimally debulked, with surgical pathology confirming high grade serous carcinoma. - 06/18/17 initial consult w/ Dr. Wells plan in place for her to continue with 6 cycles chemotherapy with carboplatin on day one of each cycle, and paclitaxel on days eight and 15 she expressed interest in receiving her chemotherapy in [place]. Treatment Treatment: 06/18/17 initial consult w/ Dr. Wells plan in place for her to continue with 6 cycles chemotherapy with carboplatin on day one of each cycle, and paclitaxel on days eight and 15 she expressed interest in receiving her chemotherapy in [place]. - 06/11/17 Carbo +paclitaxel C1D1 received in [place] - 06/18/17 Carbo +Paclitaxel C1D8 -07/02/17 Carbo +Paclitaxel C2D1 -07/22/17 Carbo +Paclitaxel C3D1. After [place] 2 weeks due to labs not meeting parameters. - 08/11/2017 Carbo + paclitaxel Day 1 every 21 days. - 08/13/17 Carbo + Paclitaxel Cycle 4/ D1. - 08/18/17 pt. presents with thombocytopenia and Chemo induced diarrhea. Positive for C-diff started on PO flagyl - 08/19/2017 admitted to [facility] for C-diff, fever HPI HPI: Mrs. 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 Patient seen and examined at bedside at [facility] inpatient room#76 patient was admitted for C-diff and thrombocytopenia, plt count today is 16. Patient continues to have episodes of diarreha, currently being treated with Iv flagyl and oral vancomycin, mildly improving. She is hemodinamically stable. Denies cardiac type chest pain, SOb,no cough, no sore throat, no chills, or night sweats minimal abdominal cramps during episodes of BMs, no blood in stool, no hematuria. Significant past medical history of coronary artery disease and myocardial infarction, Bypass five years ago 2012, hyperlipidemia, asthma well controlled. On 08/13/17 Patient received Carbo + Paclitaxel Cycle 4/ D1. Initially work up in March of 2017 after admission to [facility]. Initial presentation were complaints of abdominal pain and dyspnea. She underwent a CT scan of the chest, abdomen and pelvis upon presentation which revealed pleural effusion, ascites, omental cake, and pelvic nodularity. Dr. Carrasquillo, who saw her in consultation on May 08. Plans were made to have her go for laparotomy, VANIA-BSO, and tumor debulking. Her surgery was performed on May 14, and she was optimally debulked, with surgical pathology confirming high grade serous carcinoma. She was staged as a stage MORRIS high grade ovarian cancer, by way of positive cytology on pleural fluid. Living Conditions: Lives with her . Diagnostic Studies Result Diagram: 08/20/17 0548 08/20/17 0548 Social/Occupational History Social History: Social History This is a 67 Yr old White female, she is M and has [] Children Hx Smoking: Yes (QUIT IN 1984) Smoking Status: Former Smoker Exposure to Second Hand Smoke?: Yes Preventative Preventative: up to date with Vaccines. Mamogram: done in 11/2016 next due in 11/2018. PAp: N/A hx of VANIA-BSO 04/2017 Allergies & Medications Allergies: Coded Allergies: Penicillins (Verified Allergy, Unknown, 08/19/17) Home Meds Reported Medications Levothyroxine Sodium (LEVOTHYROXINE SODIUM) 100 Mcg Tablet, 100 MCG PO QDAY, TAB 08/19/17 Dronabinol (MARINOL) 2.5 Mg Capsule, 2.5 MG PO BID, CAPSULE 08/18/17 Prochlorperazine Maleate (Compazine) 5 Mg Tablet, 1-3XD 06/12/17 Fluticasone/Salmeterol (ADVAIR HFA 230-21 MCG INHALER) 1 Inh Inh, 1 INH INH, INH 06/12/17 Aspirin (ASPIR 81) 81 Mg Tablet.dr, 81 MG PO QDAY, TAB 01/01/17 [place] 3 Polyunsat Fatty Acids (LOVAZA) 1 Gm Cap, 1 GM PO TID, CAP 01/01/17 Ca Carbonate/Vitamin D3/Vit K (CALCIUM + D SOFT CHEWABLE TAB) 1 Each Tab.chew, 1 EACH PO DAILY, TAB.CHEW 01/01/17 Ascorbic Acid (VITAMIN C) 500 Mg Tablet, 500 MG PO DAILY, TAB 01/01/17 Vit A/Vit C/Vit E/Zinc/Copper (PRESERVISION AREDS SOFTGEL) 1 Each Capsule, 1 EACH PO DAILY, CAPSULE 01/01/17 Niacin (NIACIN) 500 Mg Tablet, 500 MG PO QDAY 01/01/17 Ubidecarenone (COQ-10) 100 Mg Capsule, 100 MG PO DAILY, CAPSULE 01/01/17 Cholecalciferol (Vitamin D3) (VITAMIN D3) 1,000 Unit Tablet, 1000 UNIT PO DAILY , TAB 01/01/17 Montelukast Sodium (MONTELUKAST SODIUM) 10 Mg Tablet, 1 TAB PO QDAY, TAB 01/01/17 Rosuvastatin Calcium (CRESTOR) 5 Mg Tablet, 10 MG PO QDAY 01/23/13 Alprazolam (ALPRAZOLAM) 0.5 Mg Tab.rapdis, 0.5 MG PO HS Y for INSOMNIA, TAB 01/23/13 Discontinued Reported Medications Metronidazole (METRONIDAZOLE) 500 Mg Tablet, BID 08/19/17 Ondansetron Hcl (ZOFRAN) 8 Mg Tablet, 8 MG PO Q8H, TAB 08/18/17 Azelastine/Fluticasone (DYMISTA NASAL SPRAY) 23 Gm [place].pump, 23 GM NS BID 01/01/17 Levothyroxine Sodium (LEVOTHYROXINE SODIUM) 0.125 Mg Tab, 100 MCG PO QDAY, TAB 01/23/13 Budesonide/Formoterol Fumarate (SYMBICORT 160-4.5 MCG INHALER) 10.2 Gm Inh, 10.2 GM INH, INH 01/23/13 Review of Systems Constitution: Positive for Appetite/Weight Change, Positive for Recent Infection (C-Diff) HEENT: No EARS: Tinnitus, No NOSE: Nasal Discharge, No THROAT: Sore Throat, No EYES: Dipolpia, No EARS: Hearing Problems, No NOSE: Epistaxis, No THROAT: Mouth Ulcers, No EYES: Vision Change, No OTHER Respiratory: No Cough, No Expectoration, No Hemoptysis, Shortness of Breath, No OTHER Cardiovascular: No Chest Pain, No Orthopnea, No Edema, No Palpitations, No OTHER Gastrointestinal: Nausea, Diarrehea Gentiourinary: No Hematuria, No Dysuria, No Nocturia, No Other Musculoskeletal: Other (body aches) Hematological: No Bleeding, Weakness, No Enlarged Lyph Nodes, No Bruising, No Fatigue, No Other Skin: No Skin Rash, No Lumps, No Erythema, No Dry Skin, No Moist Skin, No Other Psychiatric: Anxiety Vital Signs Vital Signs Temperature: 99.3 Pulse: 88 BP Systolic: 129 BP Diastolic: 66 Respiratory Rate: 18 O2 SAT: 90 O2 Delivery: Height (feet) Height (inches) 64.00 Weight lb: 140 Weight oz: Weight Kg (Frantz): 63.503 Pain: 0 Physical Exam General: Looks Stable HEENT: HEAD:Atraumatic Neck: Supple Lungs: Clear to Auscultation, Percussion Bilaterally Heart: Regular Rate and Rhythm Abdomen: Soft and Nontender (Normal Bowel sounds) Extremities: No Cyanosis, No Clubbing, No Edema, No Other Lymphatics: No Peripheral Lymphadenopathy, No Other Psychiatric: Mood appears normal, Other (A bit teary ) Breast: No No Masses, No No Nipple Discharge, No No Skin Changes, No Other Assessment and Plan Assessment and Plan: Mrs. 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 Patient seen and examined at bedside at [facility] inpatient room#76 patient was admitted for C-diff and thrombocytopenia, plt count today is 16. Patient continues to have episodes of diarreha, currently being treated with Iv flagyl and oral vancomycin, mildly improving. She is hemodinamically stable. Denies cardiac type chest pain, SOb,no cough, no sore throat, no chills, or night sweats, no palpable lymphadenopathy. Minimal abdominal cramps during episodes of BMs, no blood in stool, no hematuria. Tolerating PO intake. Significant past medical history of coronary artery disease and myocardial infarction, Bypass five years ago 2012, hyperlipidemia, asthma well controlled. On 08/13/17 Patient received Carbo + Paclitaxel Cycle 4/ . HEME Pancytopenia in the setting of antineoplastic chemotherapy WBC 3.3; ANC 2.1; hemoglobin 9.3; hematocrit 26.0; platelets 16; - Recommend Transfusion support as needed to keep Platelets > 20K; Hgb >/=8.0 or as clinically indicated in the setting of active bleeding. NO active bleeding at this time. - Recomend platelet Transfusion today. - Recommend pre-medicate 30 minutes prior to transfusions with Tylenol 325 mg and Benadryl 25 mg by mouth -Recommend leukoreduced reduce blood products ID C-diff, continue abx, flagyl and oral vacomycin. recomend no antidiarrehal agents. -Fevers: 24hors Tmax 101.1. Continue Iv hydration antibiotic regimen -If fever spikes. recomend neutropenic work up set. -Patient may get antipyretics Tyenol 650mg X5qmhey PRN. - Please send CBC w/diff, CMP, Mag, LDH levels QDay. - Recomend neutropenic diet, neutropenic precautions, in the settig of pancytopenia and anticipating Shankar. FEN Magnesium 1.5; potassium of 3.4; sodium 134; calcium 7.8; BUNs 6; creatinine 0.40; albumin 2.5; REPLETE Lytes as cliniclly indicated -Recommend replete magnesium IV 2 g today, and as clinically indicated -Recommend replete potassium 20meQ IV today - Continue IV fuids hydration normal NS +20 meQ at 100mL/HR CV Coronary artery disease- she had a bypass in 2012 Hyperlipidemia on statins. ECG done revealed SR w/ abnormal non acute findings , Hx of DC in 2012. PULMO -Hx of Asthma Well control on inhalers, rarely uses rescue. Recomend Respiratory treatment as clinically indicated. DVT ppfx/ Anticoagulation, recomend non pharmaceutical measures. Patient to ambulate in view of Thombocytopenia. Physical Therapy. encourage patient to ambulate in room, before and after each emal serving, and everytime she goes to the bathroom. - Patient to follow up with cancer center upon discharge. CHRONIC Epistaxis reduce frequency of saline nasal spray PRN. Benign Paroxysmal positional vertigo- resolved with exercise and PT TIME SPENT: 40 minutes >35 minutes incudes but not limited to discussion, counselling and co-ordination~ of care. Discussion with other health care providers, record review, review of lab work, diagnostic tests. Plan discussed extensively with patient, and spouse or hide stretcher hand. All the questions answered today. Thank you for the opportunity to be involved in the care of Eri Tejada. Billing Level: Inpatient visit 5. ALEXIS FLORES, ONC Aug 20, 2017 10:37
[2017-08-20] MEDS ORDERED: KCL (*) 20 MEQ/100 ML PREMIX 100 ML IV SCH (11:00)
--- NOTE | 2017-08-20 11:18 | Hospitalist Progress Note ---
Subjective Progress Notes Subjective She reports feeling tired like when her platelets are low. Still having frequent, loose stools. Physical Exam Vital Signs Date Time Temp Pulse Resp B/P (MAP) Pulse Ox O2 Delivery O2 Flow Rate FiO2 08/20/17 11:07 99.9 92 18 104/61 (75) 90 Room Air General Appearance: Alert, Awake, Other (Appears tired and pale) GI: Soft and Non-Tender : No CVA Tenderness Result Diagram: 08/20/17 0548 08/20/17 0548 Assessment and Plan Problems: (1) C. difficile colitis Status: Acute Assessment & Plan: She presented with frequent non-bloody, yellowish, watery stools upwards of 12-15 times a day. She was started on oral metronidazole, but didn't improve. She was started on oral vancomycin and hydrated. She had a fever overnight to 101, so will add IV metronidazole. (2) Pancytopenia Status: Acute Assessment & Plan: Secondary to chemotherapy which was last administered on (Carb/Paclitaxel). She received Pegfilgrastim on 08/14/17. Platelet count was 18k on admission and is 16k today. No evidence of bleeding. Oncology is recommending 2 units of platelets, which will be ordered for today. (3) Hypomagnesemia Status: Acute Assessment & Plan: Secondary to diarrhea. Will give IV supplementation and follow. (4) Hypokalemia Status: Acute Assessment & Plan: Secondary to diarrhea. Will give IV supplementation and follow. (5) Ovarian cancer Status: Chronic Assessment & Plan: She has been receiving treatment through [facility]. She did receive Neulasta after her recent chemo. Will watch counts closely. (6) Hypothyroidism Status: Chronic Assessment & Plan: Continue replacement therapy. (7) CAD (coronary artery disease) Status: Chronic Assessment & Plan: She appears to be stable from this standpoint. Will resume her aspirin therapy after she starts to take oral better and her platelet count improves. Will also restart her statin therapy after she begins to eat better. Exam Sepsis Risk: No Definite Risk EMMA PAGAN MD Aug 20, 2017 11:18
[2017-08-20] MEDS ORDERED: ACETAMINOPHEN 325 MG TAB PO ONE (11:30)
[2017-08-20] MEDS ORDERED: diphenhydrAMINE 25 MG CAP PO ONE (11:30)
[2017-08-20] MEDS ORDERED: DRONABINOL 2.5 MG CAP PO SCH ×2 (12:00→17:00)
[2017-08-20] MEDS ORDERED: NS(*) 0.9% 500 ML BAG 500 ML ONE (12:19)
[2017-08-20] MEDS: KCL (*) 20 MEQ/100 ML PREMIX 100 ML IV SCH ×2 (14:40→15:00)
[2017-08-21] MEDS: metroNIDAZOLE* 500MG/100ML BAG 100 ML IVPB SCH (01:33)
[2017-08-21] MEDS: PROMETHAZINE 25 MG/ML 1 ML AMP IVP PRN (01:34)
[2017-08-21] MEDS: ACETAMINOPHEN 325 MG TAB PO PRN ×2 (01:39→09:44)
[2017-08-21 01:42] VITALS: BP 102/67
[2017-08-21 06:01] LABS: PLATELET COUNT, AUTOMATED 114 K/uL (150-450)
[2017-08-21 06:24] LABS: INR 1.29
[2017-08-21 07:20] VITALS: BP 110/67
[2017-08-21] MEDS: LACTOBACILLUS ACIDOPHILUS TAB PO SCH (08:23)
[2017-08-21] MEDS: VANCOMYCIN HCL 125 MG CAPSULE PO SCH (08:23)
[2017-08-21] MEDS: MONTELUKAST SODIUM 10 MG TAB PO SCH (08:23)
[2017-08-21] MEDS ORDERED: VANC125C3 PO (09:14)
--- NOTE | 2017-08-21 09:35 | Hospitalist Depart ---
Discharge Summary Reason for Hosp/Final Diag: (1) C. difficile colitis Status: Acute Hospital Course & Plan: She presented with frequent non-bloody, yellowish, watery stools. She did test positive for C. difficile. She will discharge to complete a course of oral vancomycin. (2) Pancytopenia Status: Acute Hospital Course & Plan: Secondary to chemotherapy which was last administered on 08/13/17 (Carb/Paclitaxel). She received Pegfilgrastim on 08/14/17. Platelet count was 18k on admission and is 16k today. She did receive 2 units of platelets. Her Hgb has been low, but she is asymptomatic. She will follow up in the cancer center for repeat lab work tomorrow. (3) Hypomagnesemia Status: Acute Hospital Course & Plan: Resolved with IV supplementation. (4) Hypokalemia Status: Acute Hospital Course & Plan: Resolved with supplementation. (5) Ovarian cancer Status: Chronic Hospital Course & Plan: She has been receiving treatment through [facility]. She did receive Neulasta after her recent chemo. (6) Hypothyroidism Status: Chronic Hospital Course & Plan: She is on chronic treatment with Synthroid. Her TSH was elevated, but she was acutely ill at the time. She will require a repeat TSH in 4-6 weeks. (7) CAD (coronary artery disease) Status: Chronic Hospital Course & Plan: She was on chronic treatment with aspirin, but this was discontinued secondary to her low platelets. Departure Latest Vital Signs Vital Signs 08/21/17 08/21/17 07:20 07:24 Temp 98.7 Pulse 77 Resp 16 B/P (MAP) 110/67 (81) Pulse Ox 92 O2 Delivery Room Air Weight (Pounds): 140 Result Diagram: 08/21/1751608/21/17516 Condition: Improved Discharge: Home, Self Care Discharge Instructions Home Meds Active Scripts Vancomycin Hcl (VANCOMYCIN HCL) 125 Mg Capsule, 125 MG PO QID, #40 CAPSULE Prov:VERNON RAMIREZ 08/21/17 Reported Medications Levothyroxine Sodium (LEVOTHYROXINE SODIUM) 100 Mcg Tablet, 100 MCG PO QDAY, TAB 08/19/17 Dronabinol (MARINOL) 2.5 Mg Capsule, 2.5 MG PO BID, CAPSULE 08/18/17 Prochlorperazine Maleate (Compazine) 5 Mg Tablet, 1-3XD 06/12/17 Fluticasone/Salmeterol (ADVAIR HFA 230-21 MCG INHALER) 1 Inh Inh, 1 INH INH, INH 06/12/17 Aspirin (ASPIR 81) 81 Mg Tablet.dr, 81 MG PO QDAY, TAB 01/01/17 [place] 3 Polyunsat Fatty Acids (LOVAZA) 1 Gm Cap, 1 GM PO TID, CAP 01/01/17 Ca Carbonate/Vitamin D3/Vit K (CALCIUM + D SOFT CHEWABLE TAB) 1 Each Tab.chew, 1 EACH PO DAILY, TAB.CHEW 01/01/17 Ascorbic Acid (VITAMIN C) 500 Mg Tablet, 500 MG PO DAILY, TAB 01/01/17 Vit A/Vit C/Vit E/Zinc/Copper (PRESERVISION AREDS SOFTGEL) 1 Each Capsule, 1 EACH PO DAILY, CAPSULE 01/01/17 Niacin (NIACIN) 500 Mg Tablet, 500 MG PO QDAY 01/01/17 Ubidecarenone (COQ-10) 100 Mg Capsule, 100 MG PO DAILY, CAPSULE 01/01/17 Cholecalciferol (Vitamin D3) (VITAMIN D3) 1,000 Unit Tablet, 1000 UNIT PO DAILY , TAB 01/01/17 Montelukast Sodium (MONTELUKAST SODIUM) 10 Mg Tablet, 1 TAB PO QDAY, TAB 01/01/17 Rosuvastatin Calcium (CRESTOR) 5 Mg Tablet, 10 MG PO QDAY 01/23/13 Alprazolam (ALPRAZOLAM) 0.5 Mg Tab.rapdis, 0.5 MG PO HS Y for INSOMNIA, TAB 01/23/13 Discontinued Reported Medications Metronidazole (METRONIDAZOLE) 500 Mg Tablet, BID 08/19/17 Ondansetron Hcl (ZOFRAN) 8 Mg Tablet, 8 MG PO Q8H, TAB 08/18/17 Azelastine/Fluticasone (DYMISTA NASAL SPRAY) 23 Gm Aspers.pump, 23 GM NS BID 01/01/17 Levothyroxine Sodium (LEVOTHYROXINE SODIUM) 0.125 Mg Tab, 100 MCG PO QDAY, TAB 01/23/13 Budesonide/Formoterol Fumarate (SYMBICORT 160-4.5 MCG INHALER) 10.2 Gm Inh, 10.2 GM INH, INH 11/30/13 Diet: Regular Activity: As Tolerated Venous Thromboembolism Antithrombotics Is Pt On Any Antithrombotics?: No VERNON RAMIREZ DO Aug 21, 2017 09:35
[2017-08-21] MEDS ORDERED: ACYC-50 PO (11:29)
== END 2017-08-21 10:30 | disposition home or self-care (01) | DRG 371 ==
LOC: ER 16:27 → MED 19:36
PROVIDERS: ADMIT Internal Medicine; ATTEND Internal Medicine
PROC: 30233R1 Transfusion of Nonautologous Platelets into Peripheral Vein, Percutaneous Approach (ICD-10-PCS; principal; 2017-08-20)
DX: A04.72 Enterocolitis due to Clostridium difficile, not specified as recurrent (principal); D61.810 Antineoplastic chemotherapy induced pancytopenia; C56.9 Malignant neoplasm of unspecified ovary; T45.1X5A Adverse effect of antineoplastic and immunosuppressive drugs, initial encounter; E83.42 Hypomagnesemia; E87.6 Hypokalemia; E03.9 Hypothyroidism, unspecified; I25.10 Atherosclerotic heart disease of native coronary artery without angina pectoris; E78.5 Hyperlipidemia, unspecified; Z95.1 Presence of aortocoronary bypass graft; Z88.0 Allergy status to penicillin; Z87.891 Personal history of nicotine dependence
CPT/HCPCS: 36415; 71045; 74177; 81001; 82040; 82150; 82247; 82310; 82374; 82435; 82565; 82947; 83605; 83690; 83735; 84075; 84132; 84155; 84295; 84443; 84450; 84460; 84484; 84520; 85025; 85049; 85379; 85384; 85610; 85730; 86900; 86901; 87040; 93005; 96361; 96365; 99285; J2550; J3370; J3475; J3480; J3490; J7030; J7040; J7050; P9035; Q0163; Q0167; Q9967

== ENCOUNTER → 2017-09-10 | Outpatient (RCR) | payer MEDICARE, OTHER ==
[2017-06-12 15:15] VITALS: BP 118/69
--- NOTE | 2017-06-13 19:31 | ONCOLOGY HISTORY AND PHYSICAL ---
REFERRING PROVIDER Booker Carrasquillo MD, Gynecology/Oncology, [facility] REASON FOR CONSULTATION Ovarian cancer. CHIEF COMPLAINT Fatigue. HISTORY OF PRESENT ILLNESS Eri is a delightful 67-year-old female with a history of coronary artery disease and myocardial infarction five years ago, status post stenting. She also has a history of hyperlipidemia and hypertension. To review, she had presented in March of this year to [facility] with complaints of abdominal pain and dyspnea. She underwent a CT scan of the chest, abdomen and pelvis upon presentation which revealed pleural effusion, ascites, omental cake, and pelvic nodularity. Diagnosis of adenocarcinoma favoring a gynecologic primary was made via pleural fluid obtained by thoracentesis. She was referred to Dr. Carrasquillo, who saw her in consultation on May 08. Plans were made to have her go for laparotomy, VANIA-BSO, and tumor debulking. Her surgery was performed on May 14, and she was optimally debulked, with surgical pathology confirming high grade serous carcinoma. She was staged as a stage MORRIS high grade ovarian cancer, by way of positive cytology on pleural fluid. The patient reports that she has recovered quite nicely from her surgery , and she reports minimal pain today. She does feel somewhat tired. She denies fever. She has had a decent appetite, and her bowel habits have been reasonable. She reports no new urinary symptoms. She states that she was started on her postoperative chemotherapy with carboplatin and paclitaxel yesterday. So far she has done fine with chemotherapy. There are plans in place for her to continue with chemotherapy with carboplatin on day one of each cycle, and paclitaxel on days eight and 15. She is here with her today , as she has expressed interest in receiving her chemotherapy in [place]. REVIEW OF SYSTEMS Otherwise negative, and all systems were reviewed. PAST MEDICAL HISTORY 1. Coronary artery disease, status post VA about five years ago, status post CABG times two. 2. Hypercholesterolemia. 3. Hypertension. 4. Asthma. CURRENT MEDICATIONS 1. CoQ10. 2. Vitamin D3. 3. Montelukast. 4. Levothyroxine. 5. Crestor. 6. Symbicort inhaler. 7. Alprazolam p.r.n. ALLERGIES PENICILLINS. SOCIAL HISTORY The patient is a nonsmoker, and she has historically drunk about one alcoholic beverage per day. There is no history of illicit drug use. FAMILY HISTORY Her mother has a history of bladder cancer, diagnosed at age 82. LABORATORY STUDIES Reviewed per the [facility] and [facility] records, respectively. IMAGING AND PATHOLOGY Please see history of present illness. 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 I had a good visit with Eri and her today. We reviewed her history, as is noted above. She is now status post debulking surgery, and she has initiated chemotherapy with carboplatin and paclitaxel. She has done well with her treatment to date. She just started her chemotherapy yesterday, having received both carboplatin and paclitaxel. We discussed that the plan would be for her to continue with chemotherapy with weekly paclitaxel for the next two weeks, and then to continue with five additional cycles of carboplatin and paclitaxel on the same schedule. The patient recently had a visit with Dr. Carrasquillo, and it was recommended that she have her day one chemotherapy administered at the [facility]. She is okay with this plan, but she does report that it would be easier for her to receive her treatment here in [place]. As discussed, I would be more than happy to discuss this with Dr. Carrasquillo. We spent additional time today discussing symptom management. Her nausea has been well controlled. She has had some insomnia and feelings of restlessness with dexamethasone, but she feels that she is managing this okay. Pain control has not been a significant issue, and she is not at this time even requiring cleb-[id number]-[id number] medications. The patient does seem to be coping with her diagnosis quite well, and she seems to be quite positive today. As discussed, we would be more than happy to be helpful in this clinic in the future, including administration of chemotherapy. We will work together with providers at the [facility] to make sure that her chemotherapy regimen and venue is optimized. The patient and her had several additional questions for me today, and I believe I answered all of their questions to their satisfaction. I spent a total of 45 minutes of time face to face with the patient today, and 40 minutes of this was spent in direct counseling and coordination of care. MERI
[2017-06-17 11:10] VITALS: BP 134/76
[2017-06-17 11:26] LABS: PLATELET COUNT, AUTOMATED 375 K/uL (150-450)
[2017-06-18 11:16] VITALS: BP 138/78
[2017-06-18] MEDS: FAMOTIDINE 10 MG/ML SDV IVP PRN (11:45)
[2017-06-18] MEDS: DEXAMETHASONE SOD PHOS 10MG/ML IVP PRN (11:46)
[2017-06-18] MEDS: diphenhydrAMINE 50 MG/ML VIAL IVP PRN (11:46)
[2017-06-18] MEDS: NS(*) 0.9% 500 ML BAG 500 ML IV PRN (12:39)
[2017-06-18] MEDS: HEPARIN FLSH (PORT) 500 UN/5ML IVP PRN (12:40)
[2017-06-18 15:21] VITALS: BP 125/82
[2017-06-24 13:25] LABS: PLATELET COUNT, AUTOMATED 239 K/uL (150-450)
[2017-06-25] MEDS: NS(*) 0.9% 500 ML BAG 500 ML IV PRN (10:30)
[2017-06-25 10:41] VITALS: BP 123/83
[2017-06-25] MEDS: DEXAMETHASONE SOD PHOS 10MG/ML IVP PRN (11:15)
[2017-06-25] MEDS: diphenhydrAMINE 50 MG/ML VIAL IVP PRN (11:15)
[2017-06-25] MEDS: FAMOTIDINE 10 MG/ML SDV IVP PRN (11:15)
[2017-06-25] MEDS: HEPARIN FLSH (PORT) 500 UN/5ML IVP PRN (13:30)
[2017-06-25 14:17] VITALS: BP 122/76
[2017-07-01 14:56] VITALS: BP 130/84
[2017-07-02 10:54] VITALS: BP 117/84
[2017-07-02] MEDS: DEXAMETHASONE SOD PHOS 10MG/ML IVP PRN (11:10)
[2017-07-02] MEDS: PALONOSETRON 0.25 MG/5 ML VIAL IVP PRN (11:10)
[2017-07-02] MEDS: diphenhydrAMINE 50 MG/ML VIAL IVP PRN (11:11)
[2017-07-02] MEDS: FAMOTIDINE 10 MG/ML SDV IVP PRN (11:11)
[2017-07-02] MEDS: FOSAPREPITANT DIM 150 MG/5 ML 150 MG in NS(*) 0.9% 250 ML BAG 245 ML IVPB PRN (12:01)
[2017-07-02] MEDS: NS(*) 0.9% 500 ML BAG 500 ML IV PRN (12:04)
[2017-07-02] MEDS: HEPARIN FLSH (PORT) 500 UN/5ML IVP PRN (12:04)
[2017-07-02 12:56] VITALS: BP 117/84
--- NOTE | 2017-07-02 19:40 | ONCOLOGY FOLLOW UP NOTE ---
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 CHIEF COMPLAINT Dyspnea, fatigue. INTERIM HISTORY Eri returns to clinic for a follow-up visit today. She is here with her and friend. She is here receiving cycle two, day one of carboplatin and paclitaxel. She reports that the chemotherapy has not been particularly problematic. She does report some ongoing fatigue. She denies fever. She has had minimal numbness in her fingers and toes. She reports no new abdominal pain or changes in bowel habits. She has not been sleeping particularly well. She has been taking it easy for the most part at home. She reports that her biggest concern is feeling short of breath at times, and that she feels that she needs to take a deep breath when this had not been the case before. She is able to walk distances without significant dyspnea, however, she reports no chest pain, no productive cough. REVIEW OF SYSTEMS Otherwise negative, and all systems were reviewed. PAST MEDICAL HISTORY 1. Coronary artery disease, status post DE about five years ago, status post CABG times two. 2. Hypercholesterolemia. 3. Hypertension. 4. Asthma. CURRENT MEDICATIONS 1. Compazine. 2. Advair. 3. Dymista nasal spray. 4. Baby aspirin. 5. Lovaza. 6. Calcium/vitamin D. 7. Vitamin C. 8. Multivitamin. 9. Niacin. ALLERGIES PENICILLINS. SOCIAL HISTORY The patient is a nonsmoker, and she has historically drunk about one alcoholic beverage per day. There is no history of illicit drug use. FAMILY HISTORY Her mother has a history of bladder cancer, diagnosed at age 82. VITAL SIGNS Temperature is 98.5, blood pressure 117/84, heart rate is 86, respirations 16, oxygen saturation is 90% on room air. Weight is 63.1 kg. PHYSICAL EXAMINATION GENERAL: Patient is alert and oriented times three, in no apparent distress sitting in the exam room chair. She appears healthy and is quite interactive and pleasant. HEENT: Exam reveals anicteric sclerae. NEUROLOGIC: Exam is grossly nonfocal and her gait is normal. She does appear to be breathing comfortably. EXTREMITIES: Exam reveals no edema, clubbing or cyanosis. SKIN: Exam reveals no concerning rash or lesion. LABORATORY STUDIES Reviewed per the [facility] record. IMAGING Prior chest x-ray is reviewed today, showing some blunting of costophrenic angle. Also, ultrasound performed shows small pleural effusion that is not amenable to ultrasound-guided drainage. 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 I had a good visit with Eri and her visitors today. Symptomatically, she continues to do quite well. She is tolerating chemotherapy without significant toxicity. We spent most of our time today discussing her dyspnea. She does not have a large pleural effusion. She has no symptoms or objective findings to strongly raise the possibility of pulmonary embolism, but we did discuss this possibility today. We have decided to have her ambulate here in the clinic to see if she desaturates. If this is the case, we will need to set her up with supplemental oxygen, and I would consider a CT angiogram of the chest to evaluate for PE. If not, I do think she should continue with chemotherapy per protocol, and hopefully we will see evidence of chemotherapy response. We discussed other explanations for dyspnea, as well. She has had a fall in her hemoglobin since initiating chemotherapy, and we need to keep in mind that she lives at [facility] in [place]. Patient is comfortable with the plan for today. I will plan to see her back in clinic in about one month's time, or sooner if there are questions or concerns. Chemotherapy will continue per protocol in the meantime. I spent a total of 30 minutes of time face to face with the patient and her visitors today. Twenty-five minutes of this was spent in direct counseling and coordination of care. MERI
--- NOTE | 2017-07-03 18:23 | Medical Nutrition Therapy ---
Nutrition Anthropometrics Height (Inches): 63 Height (Calculated Centimeters: 160.0200 Weight (Pounds): 139 Hx Weight Loss: Yes (pt states usual wt about 6 months ago -153 lbs ) Pascual Nutrition Score: Pascual Nutrition Risk Score: Dietary Referral Nutrition Risk Factors: Nutrition Risk Comment: Nutrition/Food History pt stated she has followed a heart health diet Good (intake has been less than normal, feels full quickly, drinks Ensure high calorie 2x/day ) Exercise: Yes (walks 2x/day, activity has decreased recently d/t fatigue ) Nutritional Education Nutrition Education Topic: Other (nutrition during cancer treatment ) Learning Readiness: Interested Teaching Methods: Discussion, Handout Response to Teaching: Verbalize understanding Teaching Recipient: Patient, Family ( present ) Nutrition Counseling: late entry 07/02/17 provided and reviewed handout on nutrition during cancer treatment completed PG-SGA for nutrition impact symptoms = 7, d/t decreased intake, nausea, feels full quickly, fatigue, decreased activity I will monitor nutrition status and provide nutrition information as needed Nutrition Monitoring & Eval RD Patient Assessment Time: [address] Assessment Type: RD Education Patient Nutrition Acuity: 2-Moderate Nutritional Comment: 07/02/17 - provided 15 min - MNT for cancer treatment Copies To Copies to: JJ LUO MD, PAULA July 03, 2017 18:19
[2017-07-09 10:40] VITALS: BP 124/85
[2017-07-09] MEDS: diphenhydrAMINE 50 MG/ML VIAL IVP PRN (11:28)
[2017-07-09] MEDS: FAMOTIDINE 10 MG/ML SDV IVP PRN (11:32)
[2017-07-09] MEDS: DEXAMETHASONE SOD PHOS 10MG/ML IVP PRN (11:33)
[2017-07-09 13:03] VITALS: BP 123/88
[2017-07-09] MEDS: HEPARIN FLSH (PORT) 500 UN/5ML IVP PRN (13:07)
--- NOTE | 2017-07-09 16:56 | Medical Nutrition Therapy ---
Nutrition Monitoring & Eval Nutrition Follow-Up: Good Intake Nutrition Monitoring: Re-assessed nutrition impact symptoms, patient states wt is stable, intake has been good, eating more than usual, states tastes and smells are bothering her however not impacting her intake. She has been drinking at least 1 high rick ensure per day. RD Patient Assessment Time: [address] Assessment Type: RD Re-Assessment Patient Nutrition Acuity: 2-Moderate Nutritional Comment: I will continue to monitor her nutrition impact symptoms and provide education if needed. BRY TORRES July 09, 2017 16:56
[2017-07-16] MEDS: NS(*) 0.9% 500 ML BAG 500 ML IV PRN (10:45)
[2017-07-16] MEDS: FAMOTIDINE 10 MG/ML SDV IVP PRN (11:36)
[2017-07-16 11:37] VITALS: BP 119/77
[2017-07-16] MEDS: diphenhydrAMINE 50 MG/ML VIAL IVP PRN (11:42)
[2017-07-16] MEDS: DEXAMETHASONE SOD PHOS 10MG/ML IVP PRN (11:43)
--- NOTE | 2017-07-16 12:26 | Medical Nutrition Therapy ---
Nutrition Monitoring & Eval Nutrition Follow-Up: Good Intake (improving, eating larger portions ), Taking Snack Supplement (1 Ensure Plus per day for AM Snack ) Nutrition Monitoring: Re-assessed nutrition impact symptoms, no new issues, wt is stable at 62.8 kg (138 lbs) RD Patient Assessment Time: [address] Assessment Type: RD Re-Assessment Patient Nutrition Acuity: 3-Mild Nutritional Comment: I will continue to monitor her nutrition impact symptoms and provide education as needed. BRY TORRES RDN, LD July 16, 2017 11:42
[2017-07-16] MEDS: HEPARIN FLSH (PORT) 500 UN/5ML IVP PRN (13:58)
[2017-07-16 14:02] VITALS: BP 117/77
[2017-07-22 09:32] VITALS: BP 126/81
[2017-07-23 10:27] VITALS: BP 118/81
[2017-07-23] MEDS: PALONOSETRON 0.25 MG/5 ML VIAL IVP PRN (11:09)
[2017-07-23] MEDS: DEXAMETHASONE SOD PHOS 10MG/ML IVP PRN (11:09)
[2017-07-23] MEDS: FAMOTIDINE 10 MG/ML SDV IVP PRN (11:26)
[2017-07-23] MEDS: FOSAPREPITANT DIM 150 MG/5 ML 150 MG in NS(*) 0.9% 250 ML BAG 245 ML IVPB PRN (11:28)
[2017-07-23] MEDS: diphenhydrAMINE 50 MG/ML VIAL IVP PRN (12:05)
[2017-07-23] MEDS: HEPARIN FLSH (PORT) 500 UN/5ML IVP PRN (15:02)
--- NOTE | 2017-07-24 15:53 | ONCOLOGY FOLLOW UP NOTE ---
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 CHIEF COMPLAINT Fatigue, vertigo, nose bleeds. INTERIM HISTORY Eri returns to clinic for a follow-up visit today. She is accompanied by family. She is here to begin her third cycle of carboplatin and weekly paclitaxel. She reports that chemotherapy to date has been somewhat rough. She reports some ongoing fatigue. Nausea has been fairly well controlled, but her appetite has been less. She has been using Marinol with success. She reports no recent changes in her bowel habits. She reports no new urinary symptoms. She denies fever. Her biggest complaint today is an episode of vertigo that happened in her second cycle. The vertigo symptoms actually lasted about five days, on and off. She has been working with Physical Therapy. Her vertiginous symptoms have since abated, and they have not recurred. She is worried, however, that they may happen again during subsequent cycles. She also reports some occasional epistaxis, but she has had no severe bleeding. She reports no significant peripheral neuropathy. REVIEW OF SYSTEMS Otherwise negative, and all systems were reviewed. PAST MEDICAL HISTORY 1. Coronary artery disease, status post UT about five years ago, status post CABG times two. 2. Hypercholesterolemia. 3. Hypertension. 4. Asthma. CURRENT MEDICATIONS 1. Compazine. 2. Advair. 3. Dymista nasal spray. 4. Baby aspirin. 5. Lovaza. 6. Calcium/vitamin D. 7. Vitamin C. 8. Multivitamin. 9. Niacin. ALLERGIES PENICILLINS. SOCIAL HISTORY The patient is a nonsmoker, and she has historically drunk about one alcoholic beverage per day. There is no history of illicit drug use. FAMILY HISTORY Her mother has a history of bladder cancer, diagnosed at age 82. VITAL SIGNS Temperature is 97.4, blood pressure 118/81, heart rate is 85, respirations 16, oxygen saturation is 94% on room air. Weight is 62.4 kg. PHYSICAL EXAMINATION GENERAL: Patient is alert and oriented times three, in no apparent distress sitting in the infusion chair. She is eating lunch. She is very interactive and pleasant. HEENT: Exam reveals anicteric sclerae. NEUROLOGIC: Exam is grossly nonfocal. SKIN: Exam reveals no concerning rash or lesion. EXTREMITIES: Exam reveals no edema, clubbing or cyanosis. LABORATORY STUDIES Reviewed per the [facility] record. IMAGING None today. 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 I had a good visit with Eri and her loved ones today. She has completed two of six planned cycles of carboplatin and weekly paclitaxel. She is experiencing expected toxicity from treatment to include fatigue, but she has also had a somewhat protracted episode of vertigo that has now ceased. We spent time today discussing the vertigo, that I would not necessarily attribute this to chemotherapy. Her symptoms are somewhat consistent with benign positional vertigo, and physical therapy has helped. We will hold off on meclizine or related medication at this point, but if symptoms recur we will need to reconsider. We discussed her labs from today. These are acceptable for treatment, although her ANC is somewhat low at 1100. We discussed that she may need to consider a delay in her treatment later in the cycle if her counts falter. If this is the case, we would consider a slight dose reduction in her chemotherapy, and we spent time discussing this today as well. She has had some epistaxis, but I have recommended that she continue with saline nasal spray. Thrombocytopenia has not been severe. Overall, she seems to be doing fairly well, and I will plan to see her back for a followup in one month here in my [place] clinic. I believe she will be seeing Dr. Carrasquillo at the [facility] in the next few weeks as well. MTDD
[2017-07-29 15:28] LABS: PLATELET COUNT, AUTOMATED 103 K/uL (150-450)
[2017-07-29 15:43] VITALS: BP 116/72
[2017-08-05 10:33] VITALS: BP 112/56
[2017-08-05 10:54] LABS: PLATELET COUNT, AUTOMATED 285 K/uL (150-450)
[2017-08-12 09:57] LABS: PLATELET COUNT, AUTOMATED 221 K/uL (150-450)
--- NOTE | 2017-08-12 13:22 | Oncology Progress Note ---
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 Diagnosis of adenocarcinoma favoring a gynecologic primary was made via pleural fluid obtained by thoracentesis. - May 08 2017 Plans were made to have her go for laparotomy, VANIA-BSO, and tumor debulking. - May 14, 2017 surgery was performed on and she was optimally debulked, with surgical pathology confirming high grade serous carcinoma. - 06/18/17 initial consult w/ Dr. Luo plan in place for her to continue with 6 cycles chemotherapy with carboplatin on day one of each cycle, and paclitaxel on days eight and 15 she expressed interest in receiving her chemotherapy in [place]. 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 Patient present to clinic today for her f/u on disease management. Initially work up in March of 2017 after admission to [facility]. Initial presentation were complaints of abdominal pain and dyspnea. She underwent a CT scan of the chest, abdomen and pelvis upon presentation which revealed pleural effusion, ascites, omental cake, and pelvic nodularity. Dr. Carrasquillo, who saw her in consultation on May 08. Plans were made to have her go for laparotomy, VANIA-BSO, and tumor debulking. Her surgery was performed on May 14, and she was optimally debulked, with surgical pathology confirming high grade serous carcinoma. She was staged as a stage MORRIS high grade ovarian cancer, by way of positive cytology on pleural fluid. Significant past medical history of coronary artery disease and myocardial infarction, Bypass five years ago, hyperlipidemia, asthma. Diagnostic Studies Result Diagram: 08/12/17 0952 08/12/17 0952 Social/Occupational History Social History: Social History This is a 67 Yr old White female, she is M and has [] Children Hx Smoking: Yes (QUIT IN 1984) Smoking Status: Former Smoker Exposure to Second Hand Smoke?: Yes Preventative Preventative: up to date with Vaccines. Mamogram: done in 11/2016 next due in 11/2018. PAp: N/A hx of [facility]-BSO 04/2017 Allergies & Medications Allergies: Coded Allergies: Penicillins (Verified Allergy, Unknown, 01/01/17) Home Meds Reported Medications Prochlorperazine Maleate (Compazine) 5 Mg Tablet, 1-3XD 06/12/17 Fluticasone/Salmeterol (ADVAIR HFA 230-21 MCG INHALER) 1 Inh Inh, 1 INH INH, INH 06/12/17 Azelastine/Fluticasone (DYMISTA NASAL SPRAY) 23 Gm [place].pump, 23 GM NS BID 01/01/17 Aspirin (ASPIR 81) 81 Mg Tablet.dr, 81 MG PO QDAY, TAB 01/01/17 [place] 3 Polyunsat Fatty Acids (LOVAZA) 1 Gm Cap, 1 GM PO TID, CAP 01/01/17 Ca Carbonate/Vitamin D3/Vit K (CALCIUM + D SOFT CHEWABLE TAB) 1 Each Tab.chew, 1 EACH PO DAILY, TAB.CHEW 01/01/17 Ascorbic Acid (VITAMIN C) 500 Mg Tablet, 500 MG PO DAILY, TAB 01/01/17 Vit A/Vit C/Vit E/Zinc/Copper (PRESERVISION AREDS SOFTGEL) 1 Each Capsule, 1 EACH PO DAILY, CAPSULE 01/01/17 Niacin (NIACIN) 500 Mg Tablet, 500 MG PO QDAY 01/01/17 Ubidecarenone (COQ-10) 100 Mg Capsule, 100 MG PO DAILY, CAPSULE 01/01/17 Cholecalciferol (Vitamin D3) (VITAMIN D3) 1,000 Unit Tablet, 1000 UNIT PO DAILY , TAB 01/01/17 Montelukast Sodium (MONTELUKAST SODIUM) 10 Mg Tablet, 1 TAB PO QDAY, TAB 01/01/17 Levothyroxine Sodium (LEVOTHYROXINE SODIUM) 0.125 Mg Tab, 100 MCG PO QDAY, TAB 01/23/13 Rosuvastatin Calcium (CRESTOR) 5 Mg Tablet, 10 MG PO QDAY 01/23/13 Budesonide/Formoterol Fumarate (SYMBICORT 160-4.5 MCG INHALER) 10.2 Gm Inh, 10.2 GM INH, INH 01/23/13 Alprazolam (ALPRAZOLAM) 0.5 Mg Tab.rapdis, 0.5 MG PO HS Y for INSOMNIA, TAB 01/23/13 Review of Systems Constitution: Denies Appetite/Weight Change, Denies Fever/Chills/Sweating, Denies Recent Infection, Denies Other HEENT: No EARS: Tinnitus, No NOSE: Nasal Discharge, No THROAT: Sore Throat, No EYES: Dipolpia, No EARS: Hearing Problems, No NOSE: Epistaxis, No THROAT: Mouth Ulcers, No EYES: Vision Change, No OTHER Respiratory: No Cough, No Expectoration, No Hemoptysis, Shortness of Breath ( occasionally on exertion), No OTHER Cardiovascular: No Chest Pain, No Orthopnea, No Edema, No Palpitations, No OTHER Gastrointestinal: Nausea, No Vomitting, No Diarrehea, No Constipation, No Heart Burn, No Swallowing Difficulties, No Abdominal Pain, No Other Gentiourinary: No Hematuria, No Dysuria, No Nocturia, No Other Musculoskeletal: No Muscle Pain, No Joint Pain, No Bone Pain, No Other Hematological: No Bleeding, No Weakness, No Enlarged Lyph Nodes, No Bruising, No Fatigue, No Other Skin: No Skin Rash, No Lumps, No Erythema, No Dry Skin, No Moist Skin, No Other Psychiatric: Anxiety, No Depression, No Other Vital Signs Vital Signs Temperature: 97.2 Pulse: 92 BP Systolic: 112 BP Diastolic: 56 Respiratory Rate: 16 O2 SAT: 93 O2 Delivery: Height (feet) Height (inches) 63.00 Weight lb: 139 Weight oz: Weight Kg (Frantz): Pain: 2 Physical Exam General: Looks Stable HEENT: HEAD:Atraumatic Neck: Supple, No Cervical Lymphadenopathy, No Subclavicular Lymphadopathy, No Thyromegaly, No Other Lungs: Clear to Auscultation, Percussion Bilaterally Heart: Regular Rate and Rhythm, No Gallops, No Murmurs, No Clicks, No Rubs, No Other Abdomen: No Soft and Nontender, No Hepatosplenomegaly, No Masses, No Other Extremities: No Cyanosis, No Clubbing, No Edema, No Other Lymphatics: No Peripheral Lymphadenopathy, No Other Psychiatric: Mood appears normal, Affect appears normal Skin: No Skin Rashes, No Bruising, No Purpura, No Moist Desquamation, No Dry Desquamation, No Errythema, No Mild Errythema, No Moderate Errythema, No Severe Errythema, No Induration, No Other Breast: No No Masses, No No Nipple Discharge, No No Skin Changes, No Other Assessment Assessment: Eri is a 67-year-old woman who has 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 Patient present to clinic today for her f/u on disease management. Mood is upbeat, and she is ready for her next chemo round. 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 History reviewed as in HPI above She is now status post debulking surgery, and she has received 2 cycles of chemotherapy with carboplatin and paclitaxel. Cycle 3/D8 or carbo/placlitaxel had to be held due to ANC not meeting parameters. She reports to be in her usual state of health, with minimal fatigue, ocassional SOb on ecertion, having minimal nausea managed well on Marinol and Compazine, She reports no other chemo side effects toxicities. Patient did experience some episodes vertigo which wih cycle o2 of chemotherapy wich are now resolved with physical therapy and exercise. CHRONIC Epistaxis she continue with saline nasal spray PRN. Benign Paroxysmal positional vertigo- resolved with exercise and PT Coronary artery disease- she had a bypass in 2012 Hyperlipidemia on statins Asthma Well control on inhalers, rarely uses recue Plan Plan: Discussed with Dr. Luo -Continue with cycle 4 of Carboplatin and Paclitaxel Q3 weeks per orders -Follow up with [facility] Dr. Carrasquillo - F/u with PCP as scheduled (last saw PCP in June 2017, last Mammo done in11/2016 she informs me that she gets Mammo Q 2years. -Consider Growth factor support such as neulasta if needed. -Weekly Labs and monitoring Shankar @3-6 weeks -RTC in one month for provider visit -Mammo Due in 11/2018. -Patient to call clinic with any concerns TIME SPENT: 25 minutes >25 minutes incudes but not limited to discussion, counselling and co-ordination~ of care. Discussion with other health care providers, record review, review of lab work, diagnostic tests. Plan discussed extensively with patient, and spouse or roofing applicator. All the questions answered today. Thank you for the opportunity to be involved in the care of Eri Tejada. Billing Level: Return visit 4 CC Copies to: FAVIAN CARRASQUILLO MD; JJ LUO MD [facility], ONC Aug 12, 2017 13:22
[2017-08-12 15:16] VITALS: BP 125/78
[2017-08-13] MEDS: PALONOSETRON 0.25 MG/5 ML VIAL IVP PRN (10:48)
[2017-08-13] MEDS: DEXAMETHASONE SOD PHOS 10MG/ML IVP PRN (10:48)
[2017-08-13] MEDS: NS(*) 0.9% 500 ML BAG 500 ML IV PRN (10:48)
[2017-08-13 10:50] VITALS: BP 103/72
[2017-08-13] MEDS: FAMOTIDINE 10 MG/ML SDV IVP PRN (11:12)
[2017-08-13] MEDS: diphenhydrAMINE 50 MG/ML VIAL IVP PRN (11:12)
[2017-08-13] MEDS: FOSAPREPITANT DIM 150 MG/5 ML 150 MG in NS(*) 0.9% 250 ML BAG 245 ML IVPB PRN (12:09)
[2017-08-13] MEDS: HEPARIN FLSH (PORT) 500 UN/5ML IVP PRN (16:34)
[2017-08-18 13:05] VITALS: BP 119/75
[2017-08-18] MEDS: LIDOCAINE/SOD BICARB 8.4% SYR ID PRN (14:59)
[2017-08-18 15:14] LABS: PLATELET COUNT, AUTOMATED 38 K/uL (150-450)
--- NOTE | 2017-08-18 16:41 | Oncology Progress Note ---
History of Present Illness Evaluation Evaluation Date: Aug 18, 2017 Evaluation Time: 13:30 Primary Care Provider Primary Care Provider: FAVIAN CARRASQUILLO MD; LANA VERA Accompanied by Accompanied by: Significant other Last seen by : Russell on 07/23/2017 Chief Complaint Chief Complaint: "Loose stools aprox 6 times per day since 08/16/17" Oncology History Oncology History: - March of 2017 after admission to [facility] Initial presentation were complaints of abdominal pain and dyspnea. Diagnosis of adenocarcinoma favoring a gynecologic primary was made via pleural fluid obtained by thoracentesis. - May 08 2017 Plans were made to have her go for laparotomy, VANIA-BSO, and tumor debulking. - May 14, 2017 surgery was performed on and she was optimally debulked, with surgical pathology confirming high grade serous carcinoma. - 06/18/17 initial consult w/ Dr. Luo plan in place for her to continue with 6 cycles chemotherapy with carboplatin on day one of each cycle, and paclitaxel on days eight and 15 she expressed interest in receiving her chemotherapy in [place]. Treatment Treatment: 06/18/17 initial consult w/ Dr. Luo plan in place for her to continue with 6 cycles chemotherapy with carboplatin on day one of each cycle, and paclitaxel on days eight and 15 she expressed interest in receiving her chemotherapy in [place]. - 06/11/17 Carbo +paclitaxel C1D1 received in [place] - 06/18/17 Carbo +Paclitaxel C1D8 -07/02/17 Carbo +Paclitaxel C2D1 -07/22/17 Carbo +Paclitaxel C3D1. After [place] 2 weeks due to labs not meeting parameters. - 08/13/17 Carbo +Paclitaxel C4D1. 08/18/17 pt. presents with thombocytopenia and Chemo induced diarrhea. - 08/11/2017 Carbo + paclitaxel Day 1 every 21 days. - 08/13/17 Carbo + paclitaxel Cycle 4/ D1. 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 Patient present to clinic today complaining of loose stoolsx3 days. Denies abdominal, pain, reports minimal cramps during episodes of BMs. patient reports one episode of yellow mucuous stoolx1 this am.She denies no fevers, no cough, no sore throat, no chills, or night sweats, no cardiac type chest pain. Occasional SOb on exertion. with O2 sat in 93% range room air. On 08/13/17 Patient received Carbo + paclitaxel Cycle 4/ D1. Initially work up in March of 2017 after admission to [facility]. Initial presentation were complaints of abdominal pain and dyspnea. She underwent a CT scan of the chest, abdomen and pelvis upon presentation which revealed pleural effusion, ascites, omental cake, and pelvic nodularity. Dr. Carrasquillo, who saw her in consultation on May 08. Plans were made to have her go for laparotomy, VANIA-BSO, and tumor debulking. Her surgery was performed on May 14, and she was optimally debulked, with surgical pathology confirming high grade serous carcinoma. She was staged as a stage MORRIS high grade ovarian cancer, by way of positive cytology on pleural fluid. Significant past medical history of coronary artery disease and myocardial infarction, Bypass five years ago, hyperlipidemia, asthma. Living Conditions: Lives with her . Social/Occupational History Social History: Social History This is a 67 Yr old White female, she is M and has [] Children Hx Smoking: Yes (QUIT IN 1984) Smoking Status: Former Smoker Exposure to Second Hand Smoke?: Yes Preventative Preventative: up to date with Vaccines. Mamogram: done in 11/2016 next due in 11/2018. PAp: N/A hx of VANIA-BSO 04/2017 Allergies & Medications Allergies: Coded Allergies: Penicillins (Verified Allergy, Unknown, 01/01/17) Home Meds Reported Medications Ondansetron Hcl (ZOFRAN) 8 Mg Tablet, 8 MG PO Q8H, TAB 08/18/17 Dronabinol (MARINOL) 2.5 Mg Capsule, 2.5 MG PO BID, CAPSULE 08/18/17 Prochlorperazine Maleate (Compazine) 5 Mg Tablet, 1-3XD 06/12/17 Fluticasone/Salmeterol (ADVAIR HFA 230-21 MCG INHALER) 1 Inh Inh, 1 INH INH, INH 06/12/17 Azelastine/Fluticasone (DYMISTA NASAL SPRAY) 23 Gm [place].pump, 23 GM NS BID 01/01/17 Aspirin (ASPIR 81) 81 Mg Tablet.dr, 81 MG PO QDAY, TAB 01/01/17 [place] 3 Polyunsat Fatty Acids (LOVAZA) 1 Gm Cap, 1 GM PO TID, CAP 01/01/17 Ca Carbonate/Vitamin D3/Vit K (CALCIUM + D SOFT CHEWABLE TAB) 1 Each Tab.chew, 1 EACH PO DAILY, TAB.CHEW 01/01/17 Ascorbic Acid (VITAMIN C) 500 Mg Tablet, 500 MG PO DAILY, TAB 01/01/17 Vit A/Vit C/Vit E/Zinc/Copper (PRESERVISION AREDS SOFTGEL) 1 Each Capsule, 1 EACH PO DAILY, CAPSULE 01/01/17 Niacin (NIACIN) 500 Mg Tablet, 500 MG PO QDAY 01/01/17 Ubidecarenone (COQ-10) 100 Mg Capsule, 100 MG PO DAILY, CAPSULE 01/01/17 Cholecalciferol (Vitamin D3) (VITAMIN D3) 1,000 Unit Tablet, 1000 UNIT PO DAILY , TAB 01/01/17 Montelukast Sodium (MONTELUKAST SODIUM) 10 Mg Tablet, 1 TAB PO QDAY, TAB 01/01/17 Levothyroxine Sodium (LEVOTHYROXINE SODIUM) 0.125 Mg Tab, 100 MCG PO QDAY, TAB 01/23/13 Rosuvastatin Calcium (CRESTOR) 5 Mg Tablet, 10 MG PO QDAY 01/23/13 Budesonide/Formoterol Fumarate (SYMBICORT 160-4.5 MCG INHALER) 10.2 Gm Inh, 10.2 GM INH, INH 01/23/13 Alprazolam (ALPRAZOLAM) 0.5 Mg Tab.rapdis, 0.5 MG PO HS Y for INSOMNIA, TAB 01/23/13 Review of Systems Constitution: Positive for Appetite/Weight Change, Denies Fever/Chills/Sweating , Denies Recent Infection, Denies Other HEENT: No EARS: Tinnitus, No NOSE: Nasal Discharge, No THROAT: Sore Throat, No EYES: Dipolpia, No EARS: Hearing Problems, No NOSE: Epistaxis, No THROAT: Mouth Ulcers, No EYES: Vision Change, No OTHER Respiratory: No Cough, No Expectoration, No Hemoptysis, Shortness of Breath ( occasionally on exertion), No OTHER Cardiovascular: No Chest Pain, No Orthopnea, No Edema, No Palpitations, No OTHER Gastrointestinal: Nausea, No Vomitting, Diarrehea (Yellow mucus stoolx1), No Constipation, No Heart Burn, No Swallowing Difficulties, No Abdominal Pain, No Other Gentiourinary: No Hematuria, No Dysuria, No Nocturia, No Other Musculoskeletal: No Muscle Pain, No Joint Pain, No Bone Pain, No Other Hematological: No Bleeding, No Weakness, No Enlarged Lyph Nodes, No Bruising, No Fatigue, No Other Skin: No Skin Rash, No Lumps, No Erythema, No Dry Skin, No Moist Skin, No Other Psychiatric: Anxiety, No Depression, No Other Vital Signs Vital Signs Temperature: 97.3 Pulse: 96 BP Systolic: 119 BP Diastolic: 75 Respiratory Rate: 16 O2 SAT: 90 O2 Delivery: Height (feet) Height (inches) 63.00 Weight lb: 139 Weight oz: Weight Kg (Frantz): Pain: 1 Physical Exam General: Looks Stable (Appears dehydrated) HEENT: HEAD:Atraumatic Neck: Supple, No Cervical Lymphadenopathy, No Subclavicular Lymphadopathy, No Thyromegaly, No Other Lungs: Clear to Auscultation, Percussion Bilaterally Heart: Regular Rate and Rhythm, No Gallops, No Murmurs, No Clicks, No Rubs, No Other Abdomen: Soft and Nontender (CVA tenderness), No Hepatosplenomegaly, No Masses, No Other Extremities: No Cyanosis, No Clubbing, No Edema, No Other Lymphatics: No Peripheral Lymphadenopathy, No Other Psychiatric: Mood appears normal, Affect appears normal Skin: No Skin Rashes, No Bruising, No Purpura, No Moist Desquamation, No Dry Desquamation, No Errythema, No Mild Errythema, No Moderate Errythema, No Severe Errythema, No Induration, No Other Breast: No No Masses, No No Nipple Discharge, No No Skin Changes, No Other Rectal Visual rectal exam done. erythema, irritated. 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 Patient present to clinic today for her f/u complaining of loose stoolsx3 days. S/P 08/13/17 Carbo +Paclitaxel C4D1. 6/25/18 pt. presents with thombocytopenia and Chemo induced diarrhea. She reports having loose stools aproximately 6 times per dayx3 days. with one episode of yellow mucus, and tinged blood on toilet papaer. we will order CBC,CMP, Mg+, Stool specimen work up for c-diff, fecal fat, occult blood, fecal leukocyte level send in. Patient to bring specimen if she is not able to go during this visit. - Loperamide 4mg Po x1 nOw. Followed by 2mg Po qith every loose stool, to wait 2 hours apart. maximum of 16mg Po daily. Patient to stop Loperamide if no episode of loose stool in 12 hours. - Education provided to Increase PO hydration ( patient instructed to add a piece of cucumber, strawberrry or fruit to her water) no sodas, no process sugars, natural fruits Okk. no alcohol or spicy foods, reduce lactose and dairy products until one week after diarrhea is resolved. and to continue to eat and drink as tolerated taking antimetic if nauseated. 3. Thrombocytopenia. Platelet of 38 on 08/18/17 from plt of 221 on 08/12/2017. there is no active bleeding, no petechiae, no brusing. will monitor values tightly. Will Discuss platelet significant drop with Dr. Luo. Bleeding precautions teaching provided to patient and . Plan Will Discuss with Dr. Luo on Chemotherapy treatment plan, and necessary adjustments --RTC on 08/20/2017 for CBC/diff. CMp, Mg. - Stool specimen work up to be done, patient to drop specimen off, if unable to provide one today - Consider Growth factor support such as neulasta if needed. -Weekly Labs and monitoring Shankar @3-6 weeks - Increase PO hydration ( patient instructed to add a piece of cucumber, strawberry ,or favorite fruit to her water) - no sodas, no process sugars containing foods until diarreha resolved. Continue to: -Follow up with [facility] Dr. Carrasquillo - F/u with PCP as scheduled (last saw PCP in June 2017, last Mammo done in11/2016 she informs me that she gets Mammo Q 2years. -Mammo Due in 11/2018. -Patient to call clinic with any concerns. And to Immediately go to the ER with any Bleeding, chest/abdominal pain, SOb, fevers. CHRONIC Epistaxis reduce frequency of saline nasal spray PRN. Benign Paroxysmal positional vertigo- resolved with exercise and PT Coronary artery disease- she had a bypass in 2012 Hyperlipidemia on statins Asthma Well control on inhalers, rarely uses recue TIME SPENT: 25 minutes >20 minutes incudes but not limited to discussion, counselling and co-ordination~ of care. Discussion with other health care providers, record review, review of lab work, diagnostic tests. Plan discussed extensively with patient, and spouse or resaw carriage operator. All the questions answered today. Thank you for the opportunity to be involved in the care of Eri Tejada. Billing Level: Return visit 4 CC Copies to: FAVIAN CARRASQUILLO MD; JJ LUO MD; LANA VERA [facility], [facility] Aug 18, 2017 15:42
--- NOTE | 2017-08-19 15:52 | Oncology Note ---
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 Patient present to clinic today for her f/u complaining of loose stoolsx3 days. S/P 08/13/17 Carbo +Paclitaxel C4D1. 08/18/17 pt. presents with thrombocytopenia and Chemo induced diarrhea. She reports having loose stools approximately 6 times per dayx3 days. with one episode of yellow mucus, and tinged blood on toilet paper. we will order CBC,CMP, Mg+, Stool specimen work up cam back positive for c-diff, , occult blood, fecal leukocyte level send in. Flaygl 500mg PO BID was called yesterday evening , and patient instructed to stop taking Loperamide. per She only took 2 tabs of Loperamide thus far. I had two phone calls today from Mr. Sweet patient's , instructions given to follow isolation precaution and thorough hand washing with Soap and water. and disinfecting hard surface areas. To keep hydrated, avoid dairy and sugary drinks. I also Instructed patient to Go to ER if fever, abdominal pain, or condition worsens. Planning to f/u with patient on 08/20/2017 to f/u on counts, and dose adjust Flagyl for C-diff. and May add oral vancomycin if symptoms not improved within 2 -3 days. Plan was Discuss with Dr. Wells on 08/18/2017 evening. ALEXIS FLORES, ONC Aug 19, 2017 15:52
[2017-08-20 09:55] VITALS: Ht 160 cm; Wt 60.5 kg
[2017-08-22 10:27] VITALS: BP 108/65
--- NOTE | 2017-08-22 16:39 | Medical Nutrition Therapy ---
Nutritional Education Nutrition Education Topic: Other (nutrition to manage diarrhea ) Learning Readiness: Interested Teaching Methods: Discussion (phone call to Danica and her Micki, with MAX MartinP-C, ONC) Response to Teaching: Verbalize understanding Teaching Recipient: Patient, Significant Other Nutrition Counseling: Provided information on fluids and low fiber diet to help manage diarrhea, once diarrhea has resolved encourage to resume regular fiber diet I will follow up with patient at her next visit. Nutrition Monitoring & Eval RD Patient Assessment Time: [address] Assessment Type: RD Education Patient Nutrition Acuity: 2-Moderate Nutritional Comment: I will continue to monitor her nutrition impact symptoms and provide education as needed. BRY TORRES RDN, [place] Aug 22, 2017 16:39
--- NOTE | 2017-08-22 17:53 | Oncology Note ---
History of Present Illness Evaluation Evaluation Date: Aug 22, 2017 Evaluation Time: 10:10 Primary Care Provider Primary Care Provider: FAVIAN CARRASQUILLO MD; LANA VERA Accompanied by Accompanied by: self Last seen by : Russell on 07/23/2017 Chief Complaint Chief Complaint: s/p Hospitalization for C-diff Oncology History Oncology History: - March of 2017 after admission to [facility] Initial presentation were complaints of abdominal pain and dyspnea. Diagnosis of adenocarcinoma favoring a gynecologic primary was made via pleural fluid obtained by thoracentesis. - May 08 2017 Plans were made to have her go for laparotomy, VANIA-BSO, and tumor debulking. - May 14, 2017 surgery was performed on and she was optimally debulked, with surgical pathology confirming high grade serous carcinoma. - 06/18/17 initial consult w/ Dr. Wells plan in place for her to continue with 6 cycles chemotherapy with carboplatin on day one of each cycle, and paclitaxel on days eight and 15 she expressed interest in receiving her chemotherapy in [place]. Treatment Treatment: 06/18/17 initial consult w/ Dr. Wells plan in place for her to continue with 6 cycles chemotherapy with carboplatin on day one of each cycle, and paclitaxel on days eight and 15 she expressed interest in receiving her chemotherapy in [place]. - 06/11/17 Carbo +paclitaxel C1D1 received in [place] - 06/18/17 Carbo +Paclitaxel C1D8 -07/02/17 Carbo +Paclitaxel C2D1 -07/22/17 Carbo +Paclitaxel C3D1. After [place] 2 weeks due to labs not meeting parameters. - 08/11/2017 Carbo + paclitaxel Day 1 every 21 days. - 08/13/17 Carbo + Paclitaxel Cycle 4/ D1. - 08/18/17 pt. presented with thrombocytopenia and Chemo induced diarrhea. Positive for C-diff started on PO flagyl - 08/19/2017 admitted to [facility] for C-diff, fever treated with Flagyl and oral Vanco. HPI HPI: Mrs. 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 Diagnosis made via pleural fluid obtained by thoracentesis and surgical pathology confirmation in 04/2017. Patient presents to clinic today anxious about her lab values " I was told to get my cancer markers labs drawn by Dr. Rojo." She reports feeling in her usual state of health, the diarrhea is significantly improving although she had a bad episode last night after she had a spaghetti and meat balls, and she has been drinking V8 juice as a way to get her vegetables intake, she has also been taking Pedialyte. She is hemodynamically stable. Denies cardiac type chest pain, SOb, no cough, no sore throat, no chills, or night sweats , no abdominal cramps. no blood in stool, no hematuria. Significant past medical history of coronary artery disease and myocardial infarction, Bypass five years ago 2012, hyperlipidemia, asthma well controlled. patient was [facility] on treated for C-diff and Thrombocytopenia. On 08/13/17 Patient received Carbo + Paclitaxel Cycle 4/ D1. Initially work up in March of 2017 after admission to [facility]. Initial presentation were complaints of abdominal pain and dyspnea. She underwent a CT scan of the chest, abdomen and pelvis upon presentation which revealed pleural effusion, ascites, omental cake, and pelvic nodularity. Dr. Carrasquillo, who saw her in consultation on May 08. Plans were made to have her go for laparotomy, VANIA-BSO, and tumor debulking. Her surgery was performed on May 14, and she was optimally debulked, with surgical pathology confirming high grade serous carcinoma. She was staged as a stage MORRIS high grade ovarian cancer, by way of positive cytology on pleural fluid. Living Conditions: Lives with her . Diagnostic Studies Result Diagram: 08/20/17 0548 08/20/17 0548 Social/Occupational History Social History: Social History This is a 67 Yr old White female, she is M and has [] Children Hx Smoking: Yes (QUIT IN 1984) Smoking Status: Former Smoker Exposure to Second Hand Smoke?: Yes Preventative Preventative: up to date with Vaccines. Mamogram: done in 11/2016 next due in 11/2018. PAp: N/A hx of VANIA-BSO 04/2017 Allergies & Medications Allergies: Coded Allergies: Penicillins (Verified Allergy, Unknown, 08/19/17) Home Meds Reported Medications Levothyroxine Sodium (LEVOTHYROXINE SODIUM) 100 Mcg Tablet, 100 MCG PO QDAY, TAB 08/19/17 Dronabinol (MARINOL) 2.5 Mg Capsule, 2.5 MG PO BID, CAPSULE 08/18/17 Prochlorperazine Maleate (Compazine) 5 Mg Tablet, 1-3XD 06/12/17 Fluticasone/Salmeterol (ADVAIR HFA 230-21 MCG INHALER) 1 Inh Inh, 1 INH INH, INH 06/12/17 Aspirin (ASPIR 81) 81 Mg Tablet.dr, 81 MG PO QDAY, TAB 01/01/17 [place] 3 Polyunsat Fatty Acids (LOVAZA) 1 Gm Cap, 1 GM PO TID, CAP 01/01/17 Ca Carbonate/Vitamin D3/Vit K (CALCIUM + D SOFT CHEWABLE TAB) 1 Each Tab.chew, 1 EACH PO DAILY, TAB.CHEW 01/01/17 Ascorbic Acid (VITAMIN C) 500 Mg Tablet, 500 MG PO DAILY, TAB 01/01/17 Vit A/Vit C/Vit E/Zinc/Copper (PRESERVISION AREDS SOFTGEL) 1 Each Capsule, 1 EACH PO DAILY, CAPSULE 01/01/17 Niacin (NIACIN) 500 Mg Tablet, 500 MG PO QDAY 01/01/17 Ubidecarenone (COQ-10) 100 Mg Capsule, 100 MG PO DAILY, CAPSULE 01/01/17 Cholecalciferol (Vitamin D3) (VITAMIN D3) 1,000 Unit Tablet, 1000 UNIT PO DAILY , TAB 01/01/17 Montelukast Sodium (MONTELUKAST SODIUM) 10 Mg Tablet, 1 TAB PO QDAY, TAB 01/01/17 Rosuvastatin Calcium (CRESTOR) 5 Mg Tablet, 10 MG PO QDAY 01/23/13 Alprazolam (ALPRAZOLAM) 0.5 Mg Tab.rapdis, 0.5 MG PO HS Y for INSOMNIA, TAB 01/23/13 Discontinued Reported Medications Metronidazole (METRONIDAZOLE) 500 Mg Tablet, BID 08/19/17 Ondansetron Hcl (ZOFRAN) 8 Mg Tablet, 8 MG PO Q8H, TAB 08/18/17 Azelastine/Fluticasone (DYMISTA NASAL SPRAY) 23 Gm [place].pump, 23 GM NS BID 01/01/17 Levothyroxine Sodium (LEVOTHYROXINE SODIUM) 0.125 Mg Tab, 100 MCG PO QDAY, TAB 01/23/13 Budesonide/Formoterol Fumarate (SYMBICORT 160-4.5 MCG INHALER) 10.2 Gm Inh, 10.2 GM INH, INH 01/23/13 Review of Systems Constitution: Positive for Appetite/Weight Change, Positive for Recent Infection (C-Diff) HEENT: No EARS: Tinnitus, No NOSE: Nasal Discharge, No THROAT: Sore Throat, No EYES: Dipolpia, No EARS: Hearing Problems, No NOSE: Epistaxis, No THROAT: Mouth Ulcers, No EYES: Vision Change, No OTHER Respiratory: No Cough, No Expectoration, No Hemoptysis, Shortness of Breath, No OTHER Cardiovascular: No Chest Pain, No Orthopnea, No Edema, No Palpitations, No OTHER Gastrointestinal: Nausea, Diarrehea Gentiourinary: No Hematuria, No Dysuria, No Nocturia, No Other Musculoskeletal: Other (body aches) Hematological: No Bleeding, Weakness, No Enlarged Lyph Nodes, No Bruising, No Fatigue, No Other Skin: No Skin Rash, No Lumps, No Erythema, No Dry Skin, No Moist Skin, No Other Psychiatric: Anxiety Vital Signs Vital Signs Temperature: Pulse: BP Systolic: BP Diastolic: Respiratory Rate: O2 SAT: O2 Delivery: Height (feet) Height (inches) 64.00 Weight lb: 140 Weight oz: Weight Kg (Frantz): 63.503 Pain: 0 Physical Exam General: Looks Stable HEENT: HEAD:Atraumatic Neck: Supple Lungs: Clear to Auscultation, Percussion Bilaterally Heart: Regular Rate and Rhythm Abdomen: Soft and Nontender (Normal Bowel sounds) Extremities: No Cyanosis, No Clubbing, No Edema, No Other Lymphatics: No Peripheral Lymphadenopathy, No Other Psychiatric: Mood appears normal, Other (A bit teary ) Breast: No No Masses, No No Nipple Discharge, No No Skin Changes, No Other Assessment and Plan Mrs. 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 History reviewed as in HPI above She is now status post debulking surgery, and she has received 3 cycles of chemotherapy with carboplatin and paclitaxel. Cycle 3/D8 or carbo/ placlitaxel had to be held due to ANC not meeting parameters. CA 125 trending down today is 21.0 from 470 on 07/11/17. on 08/13/17 Patient received Carbo + Paclitaxel Cycle 4/ D1. HEME Labs on 08/21/17 WBC 5.0; ANC 2.1; hemoglobin 8.3; hematocrit 23.1; platelets 114 07/01/17 CA125 is 470 07/22/17 CA125 is 80 08/13/17 CA125 is 21.0 ID C-diff, continue abx, and oral vancomycin. Patient is afebrile. Temperature is and denies having fevers or chills at home. FEN Magnesium 2.0; potassium of 3.8; sodium 136; calcium 8.0; BUN 5; creatinine 0.40; albumin 2.5; uric acid. will replete Lytes as clinically indicated NUTRITION Patient was instructed to eat a fresh food diet, less processed or frozen dinners, nutrition education conference call made with myself Niurka preflight mechanic , patient and Mr. Sweet. Patient were redirected to the educational materials to read about different diets during different chemotherapy symptom stages. She agrees to reading the material over the weekend, and to ask any questions on her next visit. and informed us, or better understanding what foods to eat during the diarrhea period and a week after is resolved. CV Coronary artery disease- she had a bypass in 2012 Hyperlipidemia on statins. ECG done revealed SR w/ abnormal non acute findings , Hx of ND in 2012. PULMO -Hx of Asthma Well control on inhalers, rarely uses rescue. CHRONIC Epistaxis reduce frequency of saline nasal spray PRN. Benign Paroxysmal positional vertigo- resolved with exercise and PT Plan Plan: 1. Will discuss with Dr. Wells for necessary dose adjusted for next cycle 2. Patient to have Nutrition education session Niurka on her next visit 3. Consider Growth factor support such as neulasta if needed. 4. Weekly Labs and monitoring Shankar @3-6 weeks 5. Follow up with [employer] ONC Dr. Carrasquillo -6. F/u with PCP as scheduled (last saw PCP in June 2017, last Mammo done in11/2016 she informs me that she gets Mammo Q 2years. 7. RTC in one month for provider visit 8. Mammo Due in 11/2018. 9. Patient to call clinic with any concerns TIME SPENT: 30 minutes >25 minutes incudes but not limited to discussion, counselling and co-ordination~ of care. Discussion with other health care providers, record review, review of lab work, diagnostic tests. Plan discussed extensively with patient, and spouse or public health professor. All the questions answered today. Thank you for the opportunity to be involved in the care of Eri Tejada. Billing Level: Return visit 4. ALEXIS FLORES, ONC Aug 22, 2017 12:03
[2017-08-25 15:39] VITALS: BP 101/65
[2017-08-25 15:58] LABS: PLATELET COUNT, AUTOMATED 103 K/uL (150-450)
[2017-09-02 11:00] VITALS: BP 111/71
[2017-09-02 11:01] LABS: PLATELET COUNT, AUTOMATED 136 K/uL (150-450)
[2017-09-03 10:35] VITALS: BP 125/75
[2017-09-03] MEDS: LIDOCAINE/SOD BICARB 8.4% SYR ID PRN (11:20)
[2017-09-03] MEDS: NS(*) 0.9% 500 ML BAG 500 ML IV PRN (11:20)
[2017-09-03] MEDS: PALONOSETRON 0.25 MG/5 ML VIAL IVP PRN (11:21)
[2017-09-03] MEDS: DEXAMETHASONE SOD PHOS 10MG/ML IVP PRN (11:21)
[2017-09-03] MEDS: diphenhydrAMINE 50 MG/ML VIAL IVP PRN (11:25)
[2017-09-03] MEDS: FAMOTIDINE 10 MG/ML SDV IVP PRN (11:25)
[2017-09-03] MEDS: FOSAPREPITANT DIM 150 MG/5 ML 150 MG in NS(*) 0.9% 250 ML BAG 245 ML IVPB PRN (11:53)
--- NOTE | 2017-09-03 15:31 | Oncology Note ---
Social/Occupational History Social History: Social History This is a 67 Yr old White female, she is M and has [] Children Hx Smoking: Yes (QUIT IN 1984) Smoking Status: Former Smoker Exposure to Second Hand Smoke?: Yes Allergies & Medications Allergies: Coded Allergies: Penicillins (Verified Allergy, Unknown, 08/19/17) Home Meds Active Scripts Vancomycin Hcl (VANCOMYCIN HCL) 125 Mg Capsule, 125 MG PO QID, #40 CAPSULE Prov:VERNON RAMIREZ DO 08/21/17 Reported Medications Acyclovir (ACYCLOVIR) 400 Mg Tablet, 400 MG PO BID, TAB 08/21/17 Levothyroxine Sodium (LEVOTHYROXINE SODIUM) 100 Mcg Tablet, 100 MCG PO QDAY, TAB 08/19/17 Dronabinol (MARINOL) 2.5 Mg Capsule, 2.5 MG PO BID, CAPSULE 08/18/17 Prochlorperazine Maleate (Compazine) 5 Mg Tablet, 1-3XD 06/12/17 Fluticasone/Salmeterol (ADVAIR HFA 230-21 MCG INHALER) 1 Inh Inh, 1 INH INH, INH 06/12/17 Aspirin (ASPIR 81) 81 Mg Tablet.dr, 81 MG PO QDAY, TAB 01/01/17 Reagan 3 Polyunsat Fatty Acids (LOVAZA) 1 Gm Cap, 1 GM PO TID, CAP 01/01/17 Ca Carbonate/Vitamin D3/Vit K (CALCIUM + D SOFT CHEWABLE TAB) 1 Each Tab.chew, 1 EACH PO DAILY, TAB.CHEW 01/01/17 Ascorbic Acid (VITAMIN C) 500 Mg Tablet, 500 MG PO DAILY, TAB 01/01/17 Vit A/Vit C/Vit E/Zinc/Copper (PRESERVISION AREDS SOFTGEL) 1 Each Capsule, 1 EACH PO DAILY, CAPSULE 01/01/17 Niacin (NIACIN) 500 Mg Tablet, 500 MG PO QDAY 01/01/17 Ubidecarenone (COQ-10) 100 Mg Capsule, 100 MG PO DAILY, CAPSULE 01/01/17 Cholecalciferol (Vitamin D3) (VITAMIN D3) 1,000 Unit Tablet, 1000 UNIT PO DAILY , TAB 01/01/17 Montelukast Sodium (MONTELUKAST SODIUM) 10 Mg Tablet, 1 TAB PO QDAY, TAB 01/01/17 Rosuvastatin Calcium (CRESTOR) 5 Mg Tablet, 10 MG PO QDAY 01/23/13 Alprazolam (ALPRAZOLAM) 0.5 Mg Tab.rapdis, 0.5 MG PO HS Y for INSOMNIA, TAB 01/23/13 Oncology Follow-up Note - [employer] Patient Name: Eri Romero Unit Number: [id number] Date of : 1950 Patient Status: Registered Recurring Attending Doctor: Carl Wells MD Oncology Note History of Present Illness Evaluation Evaluation Date: September 03, 2017 Evaluation Time: 11:20 Primary Care Provider Primary Care Provider: FAVIAN CARRASQUILLO MD; LANA VERA Accompanied by Accompanied by: Last seen by : Russell on 07/23/2017 Chief Complaint Chief Complaint: Cycle 5 D1 Carbo +Paclitaxel treatment for 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 Diagnosis of adenocarcinoma favoring a gynecologic primary was made via pleural fluid obtained by thoracentesis. - May 08 2017 Plans were made to have her go for laparotomy, VANIA-BSO, and tumor debulking. - May 14, 2017 surgery was performed on and she was optimally debulked, with surgical pathology confirming high grade serous carcinoma. - 06/18/17 initial consult w/ Dr. Wells plan in place for her to continue with 6 cycles chemotherapy with carboplatin on day one of each cycle, and paclitaxel on days eight and 15 she expressed interest in receiving her chemotherapy in [place]. Treatment Treatment: 06/18/17 initial consult w/ Dr. Wells plan in place for her to continue with 6 cycles chemotherapy with carboplatin on day one of each cycle, and paclitaxel on days eight and 15 she expressed interest in receiving her chemotherapy in [place]. - 06/11/17 Carbo +paclitaxel C1D1 received in [place] - 06/18/17 Carbo +Paclitaxel C1D8 -07/02/17 Carbo +Paclitaxel C2D1 -07/22/17 Carbo +Paclitaxel C3D1. After Missing 2 weeks due to labs not meeting parameters. - 08/11/2017 Carbo + paclitaxel Day 1 every 21 days. - 08/13/17 Carbo + Paclitaxel Cycle 4/ D1. - 08/18/17 pt. presented with thrombocytopenia and Chemo induced diarrhea. Positive for C-diff started on PO flagyl - 08/19/2017 admitted to [facility] for C-diff, fever treated with Flagyl and oral Vanco. - 09/03/2017 Carbo +Paclitaxel Cycle 5/ D1. HPI HPI: Mrs. 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 Diagnosis made via pleural fluid obtained by thoracentesis and surgical pathology confirmation in 04/2017. Patient presents to clinic for her Carbo +Paclitaxel Cycle 5/ D1. She reports feeling in her usual state of health,reports no issues. s/p C-diff diarrhea is resolved. She is hemodynamically stable. Denies cardiac type chest pain, SOb,no cough, no sore throat, no chills, or night sweats , no abdominal cramps. no blood in stool, no hematuria. Significant past medical history of coronary artery disease and myocardial infarction, Bypass five years ago 2012, hyperlipidemia, asthma well controlled. patient was discharged from [facility] on08/21/17 treated for C- diff and Thrombocytopenia. On 09/03/17 Patient received Carbo + Paclitaxel Cycle / D1. Initially work up in March of 2017 after admission to [facility]. Initial presentation were complaints of abdominal pain and dyspnea. She underwent a CT scan of the chest, abdomen and pelvis upon presentation which revealed pleural effusion, ascites, omental cake, and pelvic nodularity. Dr. Carrasquillo, who saw her in consultation on May 08. Plans were made to have her go for laparotomy, VANIA-BSO, and tumor debulking. Her surgery was performed on May 14, and she was optimally debulked, with surgical pathology confirming high grade serous carcinoma. She was staged as a stage MORRIS high grade ovarian cancer, by way of positive cytology on pleural fluid. Living Conditions: Lives with her . Diagnostic Studies Result Diagram: 08/20/17 0548 08/20/1748 Social/Occupational History Social History: Social History This is a 67 Yr old White female, she is M and has [] Children Hx Smoking: Yes (QUIT IN 1984) Smoking Status: Former Smoker Exposure to Second Hand Smoke?: Yes Preventative Preventative: up to date with Vaccines. Mamogram: done in 11/2016 next due in 11/2018. PAp: N/A hx of [facility] 04/2017 Allergies & Medications Allergies: Coded Allergies: Penicillins (Verified Allergy, Unknown, 08/19/17) Home Meds Reported Medications Levothyroxine Sodium (LEVOTHYROXINE SODIUM) 100 Mcg Tablet, 100 MCG PO QDAY, TAB 08/19/17 Dronabinol (MARINOL) 2.5 Mg Capsule, 2.5 MG PO BID, CAPSULE 08/18/17 Prochlorperazine Maleate (Compazine) 5 Mg Tablet, 1-3XD 06/12/17 Fluticasone/Salmeterol (ADVAIR HFA 230-21 MCG INHALER) 1 Inh Inh, 1 INH INH, INH 06/12/17 Aspirin (ASPIR 81) 81 Mg Tablet.dr, 81 MG PO QDAY, TAB 01/01/17 Reagan 3 Polyunsat Fatty Acids (LOVAZA) 1 Gm Cap, 1 GM PO TID, CAP 01/01/17 Ca Carbonate/Vitamin D3/Vit K (CALCIUM + D SOFT CHEWABLE TAB) 1 Each Tab.chew, 1 EACH PO DAILY, TAB.CHEW 01/01/17 Ascorbic Acid (VITAMIN C) 500 Mg Tablet, 500 MG PO DAILY, TAB 01/01/17 Vit A/Vit C/Vit E/Zinc/Copper (PRESERVISION AREDS SOFTGEL) 1 Each Capsule, 1 EACH PO DAILY, CAPSULE 01/01/17 Niacin (NIACIN) 500 Mg Tablet, 500 MG PO QDAY 01/01/17 Ubidecarenone (COQ-10) 100 Mg Capsule, 100 MG PO DAILY, CAPSULE 01/01/17 Cholecalciferol (Vitamin D3) (VITAMIN D3) 1,000 Unit Tablet, 1000 UNIT PO DAILY , TAB 01/01/17 Montelukast Sodium (MONTELUKAST SODIUM) 10 Mg Tablet, 1 TAB PO QDAY, TAB 01/01/17 Rosuvastatin Calcium (CRESTOR) 5 Mg Tablet, 10 MG PO QDAY 01/23/13 Alprazolam (ALPRAZOLAM) 0.5 Mg Tab.rapdis, 0.5 MG PO HS Y for INSOMNIA, TAB 01/23/13 Discontinued Reported Medications Metronidazole (METRONIDAZOLE) 500 Mg Tablet, BID 08/19/17 Ondansetron Hcl (ZOFRAN) 8 Mg Tablet, 8 MG PO Q8H, TAB 08/18/17 Azelastine/Fluticasone (DYMISTA NASAL SPRAY) 23 Gm [place] Line.pump, 23 GM NS BID 01/01/17 Levothyroxine Sodium (LEVOTHYROXINE SODIUM) 0.125 Mg Tab, 100 MCG PO QDAY, TAB 01/23/13 Budesonide/Formoterol Fumarate (SYMBICORT 160-4.5 MCG INHALER) 10.2 Gm Inh, 10.2 GM INH, INH 01/23/13 Review of Systems Constitution: Positive for Appetite/Weight Change, Positive for Recent Infection (C-Diff) HEENT: No EARS: Tinnitus, No NOSE: Nasal Discharge, No THROAT: Sore Throat, No EYES: Dipolpia, No EARS: Hearing Problems, No NOSE: Epistaxis, No THROAT: Mouth Ulcers, No EYES: Vision Change, No OTHER Respiratory: No Cough, No Expectoration, No Hemoptysis, Shortness of Breath, No OTHER Cardiovascular: No Chest Pain, No Orthopnea, No Edema, No Palpitations, No OTHER Gastrointestinal: No Nausea,NO Diarrehea, NO constipation Gentiourinary: No Hematuria, No Dysuria, No Nocturia, No Other Musculoskeletal: Other (body aches) Hematological: No Bleeding, Weakness, No Enlarged Lyph Nodes, No Bruising, No Fatigue, No Other Skin: No Skin Rash, No Lumps, No Erythema, mild Dry Skin, No Moist Skin, No Other Psychiatric: Mood and affect appropriate Vital Signs Vital Signs Temperature: 97.2 Pulse: 76 BP Systolic: 125 BP Diastolic: 72 Respiratory Rate: 16 O2 SAT: 92%RA O2 Delivery: Height (feet) Height (inches) 64.00 Weight lb: 140 Weight oz: Weight Kg (Frantz): 63.503 Pain: 0 Physical Exam General: Looks Stable HEENT: HEAD:Atraumatic Neck: Supple Lungs: Clear to Auscultation, Percussion Bilaterally Heart: Regular Rate and Rhythm Abdomen: Soft and Nontender (Normal Bowel sounds) Extremities: No Cyanosis, No Clubbing, No Edema, No Other Lymphatics: No Peripheral Lymphadenopathy, No Other Psychiatric: Mood appears normal, Other (A bit teary ) Breast: No No Masses, No No Nipple Discharge, No No Skin Changes, No Other Assessment and Plan Mrs. 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 History reviewed as in HPI above She is now status post debulking surgery, and she has received 3 cycles of chemotherapy with carboplatin and paclitaxel. Cycle 3/D8 or carbo/ placlitaxel had to be held due to ANC not meeting parameters. CA 125 trending down today is 21.0 from 470 on 07/11/17. on 09/03/17 Patient received Carbo + Paclitaxel Cycle 5/ D1. HEME Labs on 09/02/17 WBC 5.3; ANC 3.2; hemoglobin 10.8.; hematocrit 31.3; platelets 136K; 07/01/17 CA125 is 470 07/22/17 CA125 is 80 08/13/17 CA125 is 21.0 ID Patient is afebrile. Temperature is 97.2 and denies having fevers or chills at home. FEN Within Acceptable limits. Will continue to monitor. NUTRITION Patient is doing better, with complete balanced meal, good PO intake, no issues with appetite reported today. CV Coronary artery disease- she had a bypass in 2012 Hyperlipidemia on statins. ECG done revealed SR w/ abnormal non acute findings , Hx of RI in 2012. PULMO -Hx of Asthma Well control on inhalers, rarely uses rescue. CHRONIC Epistaxis reduce frequency of saline nasal spray PRN. Benign Paroxysmal positional vertigo- resolved with exercise and PT Plan 1. Patient to receive treatment as planned today 2. Patient to have CBC, CMP, MAg, CA-125 prior to next cycle of chemotherapy 3. Consider Growth factor support after chemo if needed. 4. Weekly Labs and monitoring Shankar @3-6 weeks 5. Follow up with [facility] Dr. Carrasquillo 6. F/u with PCP as scheduled (last saw PCP in June 2017, last Mammo done in2016 she informs me that she gets Mammo Q 2years. 7. RTC in one month for provider visit 8. Mammo Due in 11/2018. 9. Patient to call clinic with any concerns TIME SPENT: 25 minutes >20 minutes includes but not limited to discussion, counselling and co-ordination~ of care. Discussion with other health care providers, record review, review of lab work, diagnostic tests. Plan discussed extensively with patient, and spouse or pastry cook. All the questions answered today. Thank you for the opportunity to be involved in the care of Eri Tejada. Billing Level: Return visit 4. ALEXIS FLORES, ONC Sep 03, 2017 15:30
[2017-09-03 16:47] VITALS: BP 119/83
[2017-09-03] MEDS: HEPARIN FLSH (PORT) 500 UN/5ML IVP PRN (16:47)
[~2017-09-10] VITALS: Ht 160 cm; Wt 60.5 kg
[~2017-09-10] MED LIST changes: +ACYC-50 PO; +ALTEPLASE RECOMB 2 MG VIAL IVP PRN; +CARBOPLATIN IVPB ONE; +DEXTROSE 5%(*) 100 ML BAG 100 ML IVPB PRN; +LEVO-3 PO; +LOPERAMIDE HCL 2 MG CAP PO PRN; +METR-160; +NS 0.9% IVPB ONE; +NS(*) 0.9% 100 ML BAG 100 ML IVPB PRN; +NS(*) 0.9% 1000 ML BAG 1,000 ML IV ONE; +PACLITAXEL IVPB ONE; +PEGFILGRASTIM 6 MG/0.6 ML SYR SUBQ ONE; +VANC125C3 PO; +WATER FOR INJ,STERILE 20 ML IVP PRN
[2017-09-10 11:21] LABS: PLATELET COUNT, AUTOMATED 42 K/uL (150-450)
[2017-09-10 12:33] VITALS: BP 115/77
--- NOTE | 2017-09-10 15:22 | Oncology Note ---
Social/Occupational History Social History: Social History This is a 67 Yr old White female, she is M and has [] Children Hx Smoking: Yes (QUIT IN 1984) Smoking Status: Former Smoker Exposure to Second Hand Smoke?: Yes Allergies & Medications Allergies: Coded Allergies: Penicillins (Verified Allergy, Unknown, 08/19/17) Home Meds Active Scripts Vancomycin Hcl (VANCOMYCIN HCL) 125 Mg Capsule, 125 MG PO QID, #40 CAPSULE Prov:VERNON RAMIREZ DO 08/21/17 Reported Medications Vancomycin Hcl (VANCOMYCIN HCL) 125 Mg Capsule, 125 MG PO QID for 21 Days, #84 CAPSULE 1 Refill 09/03/17 Acyclovir (ACYCLOVIR) 400 Mg Tablet, 400 MG PO BID, TAB 08/21/17 Levothyroxine Sodium (LEVOTHYROXINE SODIUM) 100 Mcg Tablet, 100 MCG PO QDAY, TAB 08/19/17 Dronabinol (MARINOL) 2.5 Mg Capsule, 2.5 MG PO BID, CAPSULE 08/18/17 Prochlorperazine Maleate (Compazine) 5 Mg Tablet, 1-3XD 06/12/17 Fluticasone/Salmeterol (ADVAIR HFA 230-21 MCG INHALER) 1 Inh Inh, 1 INH INH, INH 06/12/17 Aspirin (ASPIR 81) 81 Mg Tablet.dr, 81 MG PO QDAY, TAB 01/01/17 Rainbow 3 Polyunsat Fatty Acids (LOVAZA) 1 Gm Cap, 1 GM PO TID, CAP 01/01/17 Ca Carbonate/Vitamin D3/Vit K (CALCIUM + D SOFT CHEWABLE TAB) 1 Each Tab.chew, 1 EACH PO DAILY, TAB.CHEW 01/01/17 Ascorbic Acid (VITAMIN C) 500 Mg Tablet, 500 MG PO DAILY, TAB 01/01/17 Vit A/Vit C/Vit E/Zinc/Copper (PRESERVISION AREDS SOFTGEL) 1 Each Capsule, 1 EACH PO DAILY, CAPSULE 01/01/17 Niacin (NIACIN) 500 Mg Tablet, 500 MG PO QDAY 01/01/17 Ubidecarenone (COQ-10) 100 Mg Capsule, 100 MG PO DAILY, CAPSULE 01/01/17 Cholecalciferol (Vitamin D3) (VITAMIN D3) 1,000 Unit Tablet, 1000 UNIT PO DAILY , TAB 01/01/17 Montelukast Sodium (MONTELUKAST SODIUM) 10 Mg Tablet, 1 TAB PO QDAY, TAB 01/01/17 Rosuvastatin Calcium (CRESTOR) 5 Mg Tablet, 10 MG PO QDAY 01/23/13 Alprazolam (ALPRAZOLAM) 0.5 Mg Tab.rapdis, 0.5 MG PO HS Y for INSOMNIA, TAB 01/23/13 Mrs. 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 on ppfx oral vanco for c-diff. Telephone conversation took place with Ms. Hwang today [phone] in regards to a platelet count of 42,000. Patient was advised to come and recheck her platelet count count on 09/12/2017 for close monitoring of platelet count anticipating possible platelet transfusion support outpatient informs me that she would be going to [place] on Friday she will discuss with if she is able to to come to the clinic to get her labs checked on Friday, 2017. Risk factors rationale explained to patient, and bleeding precautions adviseand to be cautious with the low platelet count. Patient is currently taking Aspirin 81 mg. Patient was instructed to please hold aspirin at the present time while the platelets are below 50,000 K. Plan #1 Repeat CBCw/diff on 09/12/2017 if platelet </=20 Anticipate possible transfusion support #2 Patient to hold ASA 81mg Po daily NOW until platelet count recovered. #3 RN to arrange for possible Platelet transfusion over the weekend, based on Friday lab values. #4 Patient will call RN to arrange for time of lab drawn on Friday. #5-Education, patient instructed to go to ER immediately and or call Clinic if any Shortness of Breath, Temp >/=100.4, fevers, chills, cardiac type chest pain , bleeding, excessive bruising, headaches, blurry vision, dizziness, abdominal pain, difficulty swallowing, and pain unrelieved by Pain medication. ALEXIS FLORES, ONC Sep 10, 2017 15:22
== END ==
LOC: ONC 06-12 08:22 → SPU 06-17 11:00 → ONC 06-18 10:24 → SPU 06-24 12:58 → ONC 06-25 10:30 → SPU 07-01 14:53 → ONC 07-02 10:30 → SPU 07-22 09:13 → ONC 07-23 10:19 → SPU 07-29 14:56 → ONC 08-13 10:28 → SPU 08-14 15:00 → ONC 08-18 13:00 → SPU 08-22 09:58 → ONC 09-03 09:00 → SPU 09-04 16:34
PROVIDERS: ATTEND Internal Medicine Medical Oncology
DX: Z51.11 Encounter for antineoplastic chemotherapy (principal); C56.9 Malignant neoplasm of unspecified ovary; R06.00 Dyspnea, unspecified; J90 Pleural effusion, not elsewhere classified; R53.83 Other fatigue; R19.7 Diarrhea, unspecified; Z87.891 Personal history of nicotine dependence
CPT/HCPCS: 36415; 82274; 82705; 83630; 83735; 85007; 85025; 85027; 86304; 87324; 87449; 96360; 96361; 96367; 96372; 96375; 96413; 96415; 96417; A9270; G0463; J1100; J1200; J1453; J1642; J2469; J2505; J3490; J7030; J7040; J7050; J9045; J9267; 82040; 82247; 82310; 82374; 82435; 82565; 82947; 84075; 84132; 84155; 84295; 84443; 84450; 84460; 84520; 97802; 99212; S0028

== ENCOUNTER 2017-09-12 09:45 | Outpatient (RCR) | payer MEDICARE, OTHER ==
--- NOTE | 2017-06-19 13:08 | PT INITIAL EVALUATION ---
MEDICAL DIAGNOSIS: Ovarian Cancer TREATMENT DIAGNOSIS: Ovarian Cancer DATE OF ONSET: 05/08/17 SUBJECTIVE: Eri is a pleasant 67 year-old female presenting to oncology rehabilitation following recent diagnosis of ovarian cancer. Pt is currently on her second round of chemotherapy as well as is 5 weeks post surgical VANIA-BSO as well as tumor debulking. Pt to to receive chemotherapy regimen consisting of Carboplatin and Paclitaxel every two weeks. Pt reports that she is recovering well from her surgery, but has noticed urinary frequency with minimal output throughout the day and night. In addition pt has had increased low back pain following surgery as well as with chemotherapy. Pt reports that she is eating well and has no nausea at this time, but continues to have weight loss. However, pt does report significant fatigue increasing over the last month. Pt's is present throughout oncology rehabilitation education. REHAB PROBLEM LIST: Increased Pain Decreased Strength Decreased Endurance Decreased Function Decreased ADL's PREVIOUS MEDICAL HISTORY: See EMR OBJECTIVE: ROM: LE/UE ROM: WFL Strength: LE MMT: Hip: flexion: L 4+/5, R 4/5, Ext: B 4-/5, Abd/Add: B 4+/5. Knee: flexion: L 4/5, R 4+/5, Ext: B 4+/5. Ankle: PF/DF: B 5/5 Pelvic floor: Pt unable to maintain a full contraction of pelvic floor/lower abdominal muscles for longer than 3 seconds. Palpation: Incision is present from mid abdomen to well below the navel. Proximal majority was inspected for privacy reasons with good-moderate mobility throughout with adhesions present closer to the navel. Slight scabbing is still present throughout. No signs of redness or warmth. Mobility: ECOG Performance Status: grade 1 Other Objective Findings: FACT-G (EVAL): PWB: , SWB: , EWB: , FWB : 02/20, Total: 69/108. ASSESSMENT: Pt shows signs and symptoms consistent with generalized weakness of the LE secondary to diagnosis of Ovarian Cancer. Further PT is indicated to address the above listed deficits as well as maintain and improve function with ADL's as ongoing oncological intervention is provided. It is my recommendation that this patient additionally receive a dietary consultation for prevention of continued weight loss with ongoing oncological intervention. Short Term Goals In 2 MO pt will improve pelvic floor and lower abdominal strength to grade 2-3 for improved function with ADL's and improved neuromuscular activation of pelvic floor to manage urinary urgency. In 4 MO pt will maintain ECOG performance status of grade 2 or less for improved function with ADL's and decreased side-effects with ongoing oncological intervention. In 6 MO pt will improve FACT-G score to >87 indicating improved functional and physical well-being with ADL's. Patient's Goals Improve function with ongoing oncological intervention. PLAN: Patient to be seen for Manual Therapy/STM/MET Strengthening/condition Ice/Heat Range of Motion Spinal Stabilization Ultrasound Stretching Iontophoresis Neuromuscular Re-ed Closed Chain Program Electrical Stim Posture/Body mechanics Gait Trg/Balance Trg Biofeedback Home Exercise Program Mech./Manual Traction Therapeutic Activities Pelvic Floor 1x/2 Weeks for 6 MO If you have any questions, comments, or concerns about this report or plan, please contact me at . Thank you, Janae Live, PT, DPT, CLT MTDD
--- NOTE | 2017-07-15 08:43 | PT PLAN OF CARE ---
Physician: GINA Cam Patient is being seen: 2x/Week Therapist: Janae Live, PT, DPT, CLT Medical Diagnosis: Ovarian Cancer Treatment Diagnosis: Ovarian Cancer Date of Onset: 05/08/17 Date of Initial Evaluation: 06/18/17 Date patient was last seen: 07/14/17 Number of treatments: 5 Number of cancellations/No shows: 0 INTERVENTIONS: Manual Therapy/STM/MET Strengthening/condition Ice/Heat Range of Motion Spinal Stabilization Ultrasound Stretching Iontophoresis Neuromuscular Re-ed Closed Chain Program Electrical Stim Posture/Body mechanics Gait Trg/Balance Trg Biofeedback Home Exercise Program Mech./Manual Traction Therapeutic Activities Pelvic Floor GOALS: In 2 MO pt will improve pelvic floor and lower abdominal strength to grade 2-3 for improved function with ADL's and improved neuromuscular activation of pelvic floor to manage urinary urgency. In 4 MO pt will maintain ECOG performance status of grade 2 or less for improved function with ADL's and decreased side-effects with ongoing oncological intervention. In 6 MO pt will improve FACT-G score to >87 indicating improved functional and physical well-being with ADL's. PATIENT'S GOAL: Improve function with ongoing oncological intervention. Status of Patient's Goals: In Progress Patient Compliance: Good Prognosis: Fair Reasons for continuing therapy: Pt PT frequency was recently increased secondary to progressive decline in functional and physical well-being with continued oncological intervention. Eri also recently developed signs and symptoms consistent with R side BPPV resulting in increased nausea and dizziness. Following treatment for BPPV symptoms have near resolved, though nausea and possible orthostatic hypotension remain. Pt shows improved endurance with treatment as well as increased function in ADL's including gardening. ROM: LE/UE ROM: WFL Strength: LE MMT: Hip: flexion: L 4+/5, R 4/5, Ext: B 4-/5, Abd/Add: B 4+/5. Knee: flexion: L 4/5, R 4+/5, Ext: B 4+/5. Ankle: PF/DF: B 5/5 Pelvic floor: Pt unable to maintain a full contraction of pelvic floor for longer than 3 seconds. Palpation: Incision is present from mid abdomen to well below the navel. Proximal majority was inspected for privacy reasons with good-moderate mobility throughout with adhesions present closer to the navel. Slight scabbing is still present throughout. No signs of redness or warmth. Special Tests: FACT-G (EVAL): PWB: 16, SWB: , EWB: 17, FWB: 02/20, Total: 69/108. FACT-G (07/15/17): PWB: 14/, SWB: 25.5/, EWB: 14.5, FWB: 12./, Total : 66.5/108. Mobility: ECOG Performance Status: grade 1 If you have any questions or concerns, please feel free to contact me at . Thank you, Janae Live, PT, DPT, CLT MTDD
[2017-08-20 09:55] VITALS: BMI 24.0
--- NOTE | 2017-09-03 15:20 | PT PLAN OF CARE ---
Physician: GINA Cam Patient is being seen: 1x/Week Therapist: Janae Live, PT, DPT, CLT Medical Diagnosis: Ovarian Cancer Treatment Diagnosis: Ovarian Cancer Date of Onset: 05/08/17 Date of Initial Evaluation: 06/18/17 Date patient was last seen: 09/03/17 Number of treatments: 10 Number of cancellations/No shows: 0 INTERVENTIONS: Manual Therapy/STM/MET Strengthening/condition Ice/Heat Range of Motion Spinal Stabilization Ultrasound Stretching Iontophoresis Neuromuscular Re-ed Closed Chain Program Electrical Stim Posture/Body mechanics Gait Trg/Balance Trg Biofeedback Home Exercise Program Mech./Manual Traction Therapeutic Activities Pelvic Floor GOALS: In 2 MO pt will improve pelvic floor and lower abdominal strength to grade 2-3 for improved function with ADL's and improved neuromuscular activation of pelvic floor to manage urinary urgency. MET In 4 MO pt will maintain ECOG performance status of grade 2 or less for improved function with ADL's and decreased side-effects with ongoing oncological intervention. MET In 6 MO pt will improve FACT-G score to >87 indicating improved functional and physical well-being with ADL's. In Progress PATIENT'S GOAL: Improve function with ongoing oncological intervention. Status of Patient's Goals: In Progress Patient Compliance: Good Prognosis: Fair Reasons for continuing therapy: Eri shows good continuation of HEP with abdominal strength and stability significantly increased and resolution of diastasis recti post surgery. Her abdominal incision shows good mobility above the umbilicus with only one location of adhesion but remains to have moderate adhesions on the distal portion. Pt reports remaining SOB with aerobic exertion continues to progress with increased distance and demand to tolerance. Further PT is indicted to progress aerobic exercise to return to prior level of function as well as improve further incisional integrity with ongoing chemotherapy treatment and into survivorship. ROM: LE/UE ROM: WFL Strength: LE MMT: Hip: flexion: L 4+/5, R 4/5, Ext: B 4-/5, Abd/Add: B 4+/5. Knee: flexion: L 4/5, R 4+/5, Ext: B 4+/5. Ankle: PF/DF: B 5/5 Pelvic floor: Pt able to perform transverse abdominous and pelvic floor coupled contraction at Grade 4 level lifting B LE Palpation: Incision is present from mid abdomen to well below the navel. Region proximal to the navel minimal restrictions with flat surface, distal to the navel moderate restrictions with puckering of surface. Special Tests: FACT-G (EVAL): PWB: 16, SWB: , EWB: , FWB: 02/20, Total: 69/108 FACT-G (07/15/17): PWB: 14/, SWB: 25.5/, EWB: 14.5, FWB: 12.07/21, Total : 66.5/108 FACT-G (09/03/17): PWB: 17, SWB: , EWB: , FWB: 15, Total: 72/ 108 Mobility: ECOG Performance Status: grade 2 If you have any questions or concerns, please feel free to contact me at . Thank you, Janae Live, PT, DPT, CLT MTDD
[~2017-09-12 09:45] MED LIST changes: -ALTEPLASE RECOMB 2 MG VIAL IVP PRN; -CARBOPLATIN IVPB ONE; -DEXTROSE 5%(*) 100 ML BAG 100 ML IVPB PRN; -LOPERAMIDE HCL 2 MG CAP PO PRN; -NS 0.9% IVPB ONE; -NS(*) 0.9% 100 ML BAG 100 ML IVPB PRN; -NS(*) 0.9% 1000 ML BAG 1,000 ML IV ONE; -PACLITAXEL IVPB ONE; -PEGFILGRASTIM 6 MG/0.6 ML SYR SUBQ ONE; -WATER FOR INJ,STERILE 20 ML IVP PRN
== END 2017-09-16 ==
LOC: PT 09:45
PROVIDERS: ATTEND Nurse Practitioner Family
DX: C56.9 Malignant neoplasm of unspecified ovary (principal); Z92.21 Personal history of antineoplastic chemotherapy; R35.0 Frequency of micturition; M54.5 Low back pain; R63.4 Abnormal weight loss; R53.83 Other fatigue; M62.81 Muscle weakness (generalized); Z90.710 Acquired absence of both cervix and uterus; Z90.722 Acquired absence of ovaries, bilateral
CPT/HCPCS: 97162

== ENCOUNTER 2017-10-01 10:15 | Outpatient (RCR) | payer MEDICARE, OTHER ==
[2017-08-20 09:55] VITALS: Ht 160 cm; Wt 61.2 kg
[2017-09-12 09:21] VITALS: BP 125/75
[2017-09-12 09:35] LABS: PLATELET COUNT, AUTOMATED 53 K/uL (150-450)
[2017-09-17 10:30] VITALS: BP 118/80
[2017-09-17 10:55] LABS: PLATELET COUNT, AUTOMATED 129 K/uL (150-450)
[2017-09-23 10:44] VITALS: BP 122/78
[2017-09-24 10:32] VITALS: BP 124/77
[2017-09-24] MEDS: HEPARIN FLSH (PORT) 500 UN/5ML IVP PRN ×2 (12:16→16:31)
[2017-09-24 16:32] VITALS: BP 110/74
--- NOTE | 2017-09-24 22:20 | ONCOLOGY FOLLOW UP NOTE ---
EVENT DATE: September 24, 2017 REASON FOR FOLLOWUP Stage MORRIS high-grade serous ovarian adenocarcinoma. CHIEF COMPLAINT Fatigue, vertigo. INTERIM HISTORY Eri returns to clinic for a followup visit today. She is here to receive her sixth and final cycle of carboplatin and paclitaxel. Since our last visit, she had, unfortunately, come down with C. diff colitis, requiring antibiotic therapy initially with Flagyl and now with oral vancomycin. She reports no fevers, chills, or sweats. Her appetite has been fair, but she has lost some weight. She reports no abdominal pain. She has had no new urinary symptoms. She has had some very modest numbness in her fingertips, especially in her thumbs. She has had some ongoing issues with vertigo that has been present since her initial chemotherapy, but remarkably, the vertigo has not worsened with additional chemotherapy cycles. She also reports a runny nose at times. REVIEW OF SYSTEMS Otherwise negative, and all systems were reviewed. PAST MEDICAL HISTORY 1. Coronary artery disease, status post SD about five years ago, status post CABG times two. 2. Hypercholesterolemia. 3. Hypertension. 4. Asthma. CURRENT MEDICATIONS 1. Compazine. 2. Advair. 3. Dymista nasal spray. 4. Baby aspirin. 5. Lovaza. 6. Calcium/vitamin D. 7. Vitamin C. 8. Multivitamin. 9. Niacin. 10. Oral vancomycin. ALLERGIES PENICILLINS. SOCIAL HISTORY The patient is a nonsmoker, and she has historically drunk about one alcoholic beverage per day. There is no history of illicit drug use. FAMILY HISTORY Her mother has a history of bladder cancer, diagnosed at age 82. VITAL SIGNS Temperature is 97.9, blood pressure 124/77, heart rate is 87, respirations 16, oxygen saturation is 95% on room air. PHYSICAL EXAMINATION GENERAL: Patient is alert and oriented times three, in no apparent distress, sitting in the exam room chair. She is in good spirits and quite interactive. HEENT: Anicteric sclerae. NEUROLOGIC: Grossly nonfocal. SKIN: No concerning rash or lesion. EXTREMITIES: No edema, clubbing, or cyanosis. LABORATORY STUDIES Reviewed per the [email or web address] record. IMAGING None today. ASSESSMENT AND PLAN Stage MORRIS high-grade serous ovarian adenocarcinoma. Eri seems to have turned somewhat of a corner late in her chemotherapy cycles. She did have a rough go of it with the Clostridium difficile colitis, but her bowel habits have improved significantly. She has no signs or symptoms to suggest acute infection today. We spent time reviewing her laboratories, and these are quite reasonable to proceed with cycle 6. We moved on to discuss the plan for followup imaging with CT scan in about two weeks. The patient does have followup with Dr. Rojas at [facility] to review the results. As discussed, I would like to see her back in clinic in the next two months to touch base and see how she is doing. She has had a further reduction in her tumor marker, and this is encouraging. I would expect to see favorable findings on her upcoming scan. MTDD
[2017-09-25 16:40] VITALS: BP 118/67
[~2017-10-01] VITALS: Ht 160 cm; Wt 61.2 kg
[~2017-10-01 10:15] MED LIST changes: +ALTEPLASE RECOMB 2 MG VIAL IVP PRN; +CARBOPLATIN IVPB PRN; +DEXAMETHASONE SOD PHOS 10MG/ML IVP PRN; +DEXTROSE 5%(*) 100 ML BAG 100 ML IVPB PRN; +FAMOTIDINE 10 MG/ML SDV IV PRN; +FOSAPREPITANT DIM 150 MG/5 ML 150 MG in NS(*) 0.9% 250 ML BAG 245 ML IVPB PRN; +LIDOCAINE/SOD BICARB 8.4% SYR ID PRN; +NS 0.9% IVPB PRN; +NS(*) 0.9% 100 ML BAG 100 ML IVPB PRN; +NS(*) 0.9% 500 ML BAG 500 ML IV PRN; +PACLITAXEL IVPB PRN; +PALONOSETRON 0.25 MG/5 ML VIAL IVP PRN; +PEGFILGRASTIM 6 MG/0.6 ML SYR SUBQ ONE; +WATER FOR INJ,STERILE 20 ML IVP PRN; +diphenhydrAMINE 50 MG/ML VIAL IVP PRN
[2017-10-01 11:34] LABS: PLATELET COUNT, AUTOMATED 33 K/uL (150-450)
== END 2017-10-14 15:02 | disposition home or self-care (01) ==
LOC: SPU 10:15
PROVIDERS: ATTEND Internal Medicine Medical Oncology
DX: Z51.11 Encounter for antineoplastic chemotherapy (principal); C56.9 Malignant neoplasm of unspecified ovary; R06.00 Dyspnea, unspecified; J90 Pleural effusion, not elsewhere classified; R53.83 Other fatigue; R19.7 Diarrhea, unspecified; Z87.891 Personal history of nicotine dependence
CPT/HCPCS: 36415; 85025; 85027; 86304; 96367; 96372; 96375; 96413; 96415; 96417; J1100; J1200; J1453; J1642; J2469; J2505; J3490; J7040; J7050; J9045; J9267; 82040; 82247; 82310; 82374; 82435; 82565; 82947; 84075; 84132; 84155; 84295; 84450; 84460; 84520; S0028

== ENCOUNTER → 2017-10-08 | Outpatient (CLI) | payer MEDICARE, OTHER ==
[2017-08-20 09:55] VITALS: BMI 24.0
[~2017-10-08] MED LIST changes: -ALTEPLASE RECOMB 2 MG VIAL IVP PRN; -CARBOPLATIN IVPB PRN; -DEXAMETHASONE SOD PHOS 10MG/ML IVP PRN; -DEXTROSE 5%(*) 100 ML BAG 100 ML IVPB PRN; -FAMOTIDINE 10 MG/ML SDV IV PRN; -FOSAPREPITANT DIM 150 MG/5 ML 150 MG in NS(*) 0.9% 250 ML BAG 245 ML IVPB PRN; +IOPAMIDOL 76% 75 ML INFUS BTL 75 ML ONE; -LIDOCAINE/SOD BICARB 8.4% SYR ID PRN; -NS 0.9% IVPB PRN; -NS(*) 0.9% 100 ML BAG 100 ML IVPB PRN; -NS(*) 0.9% 500 ML BAG 500 ML IV PRN; -PACLITAXEL IVPB PRN; -PALONOSETRON 0.25 MG/5 ML VIAL IVP PRN; -PEGFILGRASTIM 6 MG/0.6 ML SYR SUBQ ONE; -WATER FOR INJ,STERILE 20 ML IVP PRN; -diphenhydrAMINE 50 MG/ML VIAL IVP PRN
--- NOTE | 2017-10-08 14:14 | RADIOLOGY IMAGING REPORT ---
FACILITY: [facility] - [place] PATIENT NAME: Eri Romero : 1950 MR: [id number] V: [id number] EXAM DATE: ORDERING PHYSICIAN: FAVIAN GARCIA TECHNOLOGIST: Location: [facility] [place] Patient: Eir Romero : 1950 Visit/Account:[id number] Date of Sevice: 10/08/2017 CHEST/AB/PELV W/CONTRAST HISTORY: Ovarian cancer posttreatment ADDITIONAL HISTORY: None. TECHNIQUE: Following administration of IV contrast axial images acquired through the chest abdomen a nd pelvis during the portal venous phase. Coronal and sagittal reformatting was also performed. Dose Lowering Technique One of the following dose optimization techniques was utilized in the performance of this exam: Autom ated exposure control; adjustment of the mA and/or kV according to the patient's size; or use of an i terative reconstruction technique. Specific details can be referenced in the facility's radiology C T exam operational policy. CONTRAST: 75 mL Isovue-370 COMPARISON: CT of the chest July 16, [address] abdomen pelvis August 19, 2017 FINDINGS: CHEST: Lungs/Pleura: There is a small right pleural effusion. There is also a pleural rind of slight incre ased density suggesting pleural thickening or pleural metastases. A small amount of airspace consoli dation in the dependent portion of the right lower lobe Coarse linear stranding the right middle lobe may represent atelectasis or scarring. These changes are similar to the prior CT the abdomen and pelvis This a small elliptical area of thickening versus fluid along the superior aspect of the major fissur e on the left Mediastinum/lymph nodes: There is a 1 x 1 cm right hilar lymph node that is stable since 2010 Heart/vessels: There Is an implanted right IJ port distal tip is at the cavoatrial junction. There a re moderate coronary artery calcifications and a previous sternotomy Bones/soft tissues: No aggressive appearing bone lesions are seen ABDOMEN AND PELVIS: Hepatobiliary: Negative. Spleen: Negative. Pancreas: Negative. Adrenals: Negative. Kidneys ureters and bladder : Kidneys appear unremarkable. Bladder is decompressed not ideally evalu ated Genitalia: Postsurgical changes from hysterectomy and oophorectomy GI: Surgical anastomosis again seen in the sigmoid colon. There is a moderate amount of fecal mate rial seen throughout colon which can be seen with constipation. There is no evidence of bowel obstru ction Vessels/spaces/nodes: Mild to moderate vascular calcifications. No pathologic-appearing adenopathy Bones/soft tissues: There are postsurgical changes from a midline abdominal pelvic incision appears similar to the prior study. There is a very small umbilical hernia containing fat No aggressive appearing bone lesions are seen Additional findings: None pertinent. IMPRESSION: Small right pleural effusion and a pleural rind slight increased density suggesting pleural thickenin g or pleural metastases. Small amount of airspace consolidation in dependent portion right lower lobe and coarse linear strand ing in the right middle lobe which appears similar to the prior CT of abdomen and pelvis from August 13. There is a small elliptical area of pleural thickening versus fluid along superior aspect the major f issure on the left Post surgical changes from hysterectomy and nephrectomy. Post surgical changes in the sigmoid colon. Moderate amount of fecal material throughout colon which can be seen with constipation. Additional chronic findings as described Report Dictated By: Zulay Weldon MD at 10/08/2017 1:44 PM Report E-Signed By: Zulay Weldon MD at 10/08/2017 2:10 PM WSN:[email or web address]
== END ==
LOC: CT 10-07 01:17
PROVIDERS: ATTEND Obstetrics & Gynecology
DX: I25.10 Atherosclerotic heart disease of native coronary artery without angina pectoris (principal); J90 Pleural effusion, not elsewhere classified; R91.8 Other nonspecific abnormal finding of lung field; Z95.828 Presence of other vascular implants and grafts; K59.00 Constipation, unspecified; Z90.710 Acquired absence of both cervix and uterus; Z90.79 Acquired absence of other genital organ(s)
CPT/HCPCS: 71260; 74177; Q9967

== ENCOUNTER 2017-12-08 11:30 | Outpatient (RCR) | payer MEDICARE, OTHER ==
[2017-08-20 09:55] VITALS: BMI 24.0
--- NOTE | 2017-09-24 11:53 | PT PLAN OF CARE ---
Physician: GINA Cam Patient is being seen: 2x/Week Therapist: Janae Live, PT, DPT, CLT Medical Diagnosis: Ovarian Cancer Treatment Diagnosis: Ovarian Cancer Date of Onset: 05/08/17 Date of Initial Evaluation: 06/18/17 Date patient was last seen: 09/24/17 Number of treatments: 16 Number of cancellations/No shows: 0 INTERVENTIONS: Manual Therapy/STM/MET Strengthening/condition Ice/Heat Range of Motion Spinal Stabilization Ultrasound Stretching Iontophoresis Neuromuscular Re-ed Closed Chain Program Electrical Stim Posture/Body mechanics Gait Trg/Balance Trg Biofeedback Home Exercise Program Mech./Manual Traction Therapeutic Activities Pelvic Floor GOALS: In 2 MO pt will improve pelvic floor and lower abdominal strength to grade 2-3 for improved function with ADL's and improved neuromuscular activation of pelvic floor to manage urinary urgency. MET In 4 MO pt will maintain ECOG performance status of grade 2 or less for improved function with ADL's and decreased side-effects with ongoing oncological intervention. MET In 6 MO pt will improve FACT-G score to >87 indicating improved functional and physical well-being with ADL's. In Progress PATIENT'S GOAL: Improve function with ongoing oncological intervention. Status of Patient's Goals: In Progress Patient Compliance: Good Prognosis: Fair Reasons for continuing therapy: Eri shows good continuation of HEP with abdominal strength and stability significantly increased and resolution of diastasis recti post surgery. Her abdominal incision shows good mobility above the umbilicus, but remains to have minimal to moderate adhesions on the distal portion specifically with inferior and L translation. Pt had recent onset of BPPV of the vertical and horizontal canals which appears resolved, though lingering vertigo likely from chemotherapy neurological irritation remains without impact on lifestyle. Further PT to continue with monitoring of vertigo as well as treatment for neural re-education and maintenance of physical condition with the final cycles of chemotherapy. ROM: LE/UE ROM: WFL Strength: LE MMT: Hip: flexion: L 4+/5, R 4/5, Ext: B 4-/5, Abd/Add: B 4+/5. Knee: flexion: L 4/5, R 4+/5, Ext: B 4+/5. Ankle: PF/DF: B 5/5 Pelvic floor: Pt able to perform transverse abdominous and pelvic floor coupled contraction at Grade 4 level lifting B LE Palpation: Incision is present from mid abdomen to well below the navel. Region proximal to the navel minimal restrictions with flat surface, distal to the navel moderate restrictions with puckering of surface. Special Tests: FACT-G (EVAL): PWB: 16/, SWB: 27, EWB: 17, FWB: 12, Total: 69/108 FACT-G (07/15/17): PWB: 14/, SWB: 25.5/, EWB: 14.5, FWB: 12.5, Total : 66.5/108 FACT-G (09/03/17): PWB: 17/, SWB: 21/, EWB: , FWB: 15, Total: 72/ 108 FACT-G (09/24/17): PWB: 17/, SWB: 26/, EWB: 20, FWB: , Total: 82/ 108 Mobility: ECOG Performance Status: grade 1 If you have any questions or concerns, please feel free to contact me at . Thank you, Janae Live, PT, DPT, CLT MTDD
--- NOTE | 2017-12-05 11:15 | PT PLAN OF CARE ---
Physician: GINA Cam Patient is being seen: 1-2x/Week Therapist: Janae Live, PT, DPT, CLT Medical Diagnosis: Ovarian Cancer Treatment Diagnosis: Ovarian Cancer Date of Onset: 05/08/17 Date of Initial Evaluation: 06/18/17 Date patient was last seen: 12/05/17 Number of treatments: 26 Number of cancellations/No shows: 0 INTERVENTIONS: Manual Therapy/STM/MET Strengthening/condition Ice/Heat Range of Motion Spinal Stabilization Ultrasound Stretching Iontophoresis Neuromuscular Re-ed Closed Chain Program Electrical Stim Posture/Body mechanics Gait Trg/Balance Trg Biofeedback Home Exercise Program Mech./Manual Traction Therapeutic Activities Pelvic Floor GOALS: In 2 MO pt will improve pelvic floor and lower abdominal strength to grade 2-3 for improved function with ADL's and improved neuromuscular activation of pelvic floor to manage urinary urgency. MET In 4 MO pt will maintain ECOG performance status of grade 2 or less for improved function with ADL's and decreased side-effects with ongoing oncological intervention. MET In 6 MO pt will improve FACT-G score to >87 indicating improved functional and physical well-being with ADL's. In Progress Survivorship Goals: In 1 MO pt will return to independent exercise for improved function with ADLs and maintenance of strength and endurance. MET In 1 MO pt will decrease cervical pain to <3/10 for improved function with ADL's. PATIENT'S GOAL: Improve function with ongoing oncological intervention. Status of Patient's Goals: 3/5 MET, 2/5 In progress Patient Compliance: Good Prognosis: Fair Reasons for continuing therapy: Eri shows great progress towards independent exercise for maintenance of strength and fatigue. Incision mobility shows improvements with associated increased core activation and stability. Pt assessed for lingering cervical dysfunction with a rotational component discovered resulting in chronic cervical pain. With repeated exercise pt show progressive decrease in pain and improved functional mobility with rotation, extension and side bending. Further PT to continue with progress towards improved function and mobility while maintaining progress in strength and endurance. ROM: LE/UE ROM: WFL Strength: LE MMT: Hip: flexion: L 4+/5, R 4/5, Ext: B 4-/5, Abd/Add: B 4+/5. Knee: flexion: L 4/5, R 4+/5, Ext: B 4+/5. Ankle: PF/DF: B 5/5 Pelvic floor: Pt able to perform transverse abdominous and pelvic floor coupled contraction at Grade 4 level lifting B LE Palpation: Incision is present from mid abdomen to well below the navel. Region proximal to the navel minimal restrictions with flat surface, distal to the navel moderate restrictions with puckering of surface. Special Tests: FACT-G (EVAL): PWB: 16, SWB: 27, EWB: , FWB: 02/20, Total: 69/108 FACT-G (07/15/17): PWB: 14/, SWB: 25.5/, EWB: 14.5, FWB: 12.07/21, Total: 66.5/108 FACT-G (09/03/17): PWB: 17/, SWB: /, EWB: , FWB: 15, Total: 72/108 FACT-G (09/24/17): PWB: 17/, SWB: /, EWB: , FWB: , Total: 82/108 Mobility: ECOG Performance Status: grade 1 If you have any questions or concerns, please feel free to contact me at [phone]. Thank you, Janae Live, PT, DPT, CLT IRENED
[~2017-12-08 11:30] MED LIST changes: -IOPAMIDOL 76% 75 ML INFUS BTL 75 ML ONE
== END 2017-12-16 ==
LOC: PT 11:30
PROVIDERS: ATTEND Nurse Practitioner Family
DX: C56.9 Malignant neoplasm of unspecified ovary (principal); Z92.21 Personal history of antineoplastic chemotherapy; R35.0 Frequency of micturition; M54.5 Low back pain; R63.4 Abnormal weight loss; R53.83 Other fatigue; M62.81 Muscle weakness (generalized); Z90.710 Acquired absence of both cervix and uterus; Z90.722 Acquired absence of ovaries, bilateral

== ENCOUNTER → 2018-01-26 | Outpatient (CLI) | payer MEDICARE, OTHER ==
[2017-08-20 09:55] VITALS: BMI 24.0
[~2018-01-26] MED LIST changes: -METR-160; +METR500T54
--- NOTE | 2018-01-26 15:35 | RADIOLOGY IMAGING REPORT ---
FACILITY: [facility] - [place] PATIENT NAME: Eri Romero : 1950 MR: [id number] V: [id number] EXAM DATE: ORDERING PHYSICIAN: ISIS BUENO TECHNOLOGIST: Location: [facility] [place] Patient: Eri Romero : 1950 Visit/Account:[id number] Date of Sevice: 01/26/2018 CHEST PA AND LAT HISTORY: Coronary artery disease. COMPARISON: 2017. FINDINGS: Cardiomediastinal contours: The heart is mildly enlarged. There is been sternotomy for CABG. Lungs and pleura: Again noted is a small right pleural effusion. There is associated passive atelecta sis. The size of the effusion is stable compared to the prior exam. There is no infiltrate. Lungs are mildly hyperinflated. Bones/soft tissues: Status post sternotomy for CABG. Catheter: The right internal jugular vein chest port catheter tip is at the cavoatrial junction. IMPRESSION: 1. Stable size of previously noted small right pleural effusion. There is atelectasis in the right jonathan ng base. 2. Mild hyperinflation of the lungs. 3. Status post sternotomy for CABG. 4. Stable right internal jugular vein chest port. Report Dictated By: Dagoberto Aguayo MD at 01/26/2018 3:22 PM Report E-Signed By: Dagoberto Aguayo MD at 01/26/2018 3:31 PM WSN:[id number]
== END ==
LOC: RAD 14:46
PROVIDERS: ATTEND Nurse Practitioner Family
DX: J98.11 Atelectasis (principal); J90 Pleural effusion, not elsewhere classified; Z95.828 Presence of other vascular implants and grafts
CPT/HCPCS: 71046

== ENCOUNTER 2018-02-04 11:00 | Outpatient (RCR) | payer MEDICARE, OTHER ==
[2017-08-20 09:55] VITALS: BMI 24.0
[2017-11-12] MEDS: HEPARIN FLSH (PORT) 500 UN/5ML IVP PRN (13:58)
[2017-12-15] MEDS: HEPARIN FLSH (PORT) 500 UN/5ML IVP PRN (15:08)
[2018-01-07] MEDS: HEPARIN FLSH (PORT) 500 UN/5ML IVP PRN (14:29)
[~2018-02-04 11:00] MED LIST changes: +ALTEPLASE RECOMB 2 MG VIAL IVP PRN; +DEXTROSE 5%(*) 100 ML BAG 100 ML IVPB PRN; +LIDOCAINE/SOD BICARB 8.4% SYR ID PRN; +NS(*) 0.9% 100 ML BAG 100 ML IVPB PRN; +NS(*) 0.9% 500 ML BAG 500 ML IV PRN; +WATER FOR INJ,STERILE 20 ML IVP PRN
[2018-02-04] MEDS: HEPARIN FLSH (PORT) 500 UN/5ML IVP PRN (11:23)
[2018-02-04 11:24] VITALS: BP 128/83
== END 2018-02-10 ==
LOC: SPU 11:00
PROVIDERS: ATTEND Internal Medicine Medical Oncology
DX: C56.9 Malignant neoplasm of unspecified ovary (principal)
CPT/HCPCS: 36591; 86304; 96523; J1642

== ENCOUNTER → 2018-02-13 | Outpatient (CLI) | payer MEDICARE, OTHER ==
[2017-08-20 09:55] VITALS: BMI 24.0
[~2018-02-13] MED LIST changes: -ALTEPLASE RECOMB 2 MG VIAL IVP PRN; -DEXTROSE 5%(*) 100 ML BAG 100 ML IVPB PRN; +IOPAMIDOL 76% 50 ML INFUS BTL 100 ML ONE; -LIDOCAINE/SOD BICARB 8.4% SYR ID PRN; -NS(*) 0.9% 100 ML BAG 100 ML IVPB PRN; -NS(*) 0.9% 500 ML BAG 500 ML IV PRN; -WATER FOR INJ,STERILE 20 ML IVP PRN
--- NOTE | 2018-02-13 15:24 | RADIOLOGY IMAGING REPORT ---
FACILITY: [facility] - [place] PATIENT NAME: Eri Romero : 1950 MR: [id number] V: [id number] EXAM DATE: ORDERING PHYSICIAN: FAVIAN GARCIA TECHNOLOGIST: Location: [facility] Patient: Eri Romero : 1950 Visit/Account:[id number] Date of Sevice: 02/13/2018 ADDENDUM #1 Addendum: There is a typographical error in the findings and impression, the increased septal lines a re in the right lung posteriorly, worst in the upper lobe, not in the left lung. Report Dictated By: Hannah Howell MD at 02/13/2018 4:02 PM Report E-Signed By: Hannah Howell MD at 02/13/2018 4:02 PM ORIGINAL REPORT EXAMINATION: CT chest with IV contrast CT abdomen with IV contrast CT pelvis with IV contrast HISTORY: Malignant neoplasm of right ovary. COMPARISON: CT abdomen and pelvis from 08/19/2017, and chest, abdomen and pelvis from 10/08/2017. TECHNIQUE: Axial images were taken through the chest, abdomen and pelvis during injection of nonion ic iodinated intravenous contrast. Sagittal and coronal reformatted images are also submitted. CONTRAST: 75 mL of IV Isovue-370. One of the following dose optimization techniques was utilized in the performance of this exam: Autom ated exposure control; adjustment of the mA and/or kV according to the patient's size; or use of an i terative reconstruction technique. Specific details can be referenced in the facility's radiology C T exam operational policy. FINDINGS: CT CHEST: Lungs/pleura: Small right pleural effusion inferiorly with Hounsfield units of 15, and thickening an d enhancement of the adjacent pleura is similar to previous exam. Some extension of fluid into the m inor fissure. There are septal lines and thickening of the interlobular septa in the left lung poste riorly, worst in the upper lobe, increased from previous exam. Focal thickening of the left major fi ssure superiorly is unchanged. Mediastinum/bob: Negative. Heart/pericardium: Negative. Vessels: Moderate atherosclerotic calcifications, including of the coronary arteries. Right IJ cent ral venous port is well-positioned. Musculoskeletal/body wall: Midline sternotomy wires are aligned and intact. Lymph nodes: There are a few shotty appearing lymph nodes in the mediastinum which are unchanged. Lower neck: There are a few small lymph nodes in the lower neck bilaterally, including a right level IV node which is round measuring 10 x 8 mm (image 10 series 2). The node previously measured 9 x 7 m m. There is an increased area of focal hypodensity along the medial margin. CT ABDOMEN AND PELVIS: Liver/biliary: Negative. Pancreas: Negative. Spleen: Negative. Adrenal glands: Negative. Kidneys: Negative. Pelvic structures: Previous hysterectomy and oophorectomy. Bowel: Surgical anastomosis in the sigmoid colon. Bowel loops are normal in caliber. Peritoneum/retroperitoneum/mesenteries: There is trace fluid adjacent to the spleen which is new. Th ere is also small amount of fluid in the cul-de-sac which does not appear to be in a bowel loop. The re is mildly increased density in the left upper quadrant mesenteric fat, which is increased. Vessels: Negative. Musculoskeletal/body wall: Mild degenerative changes of the lumbar spine. Lymph nodes: There are a few tiny mesenteric and retroperitoneal lymph nodes which are unchanged. Th ere are no enlarged or abnormal morphology lymph nodes. IMPRESSION: 1. Small right pleural effusion with enhancement and thickening of the pleura, possibly a malignant effusion, unchanged. 2. Increased septal lines in the left lung posteriorly, worst in the upper lobe. This could be due to asymmetric pulmonary edema or lymphangitic carcinomatosis. 3. 10 x 8 mm right level IV lymph node is not significantly changed in size, but there is increased focal hypodensity medially. This could be a malignant lymph node. 4. Trace ascites adjacent to the spleen and possibly in the cul-de-sac, new rom previous exam. Report Dictated By: Hannah Howell MD at 02/13/2018 3:01 PM Report E-Signed By: Hannah Howell MD at 02/13/2018 3:21 PM WSN:[email or web address]
== END ==
LOC: CT 13:39
PROVIDERS: ATTEND Obstetrics & Gynecology
DX: C56.1 Malignant neoplasm of right ovary (principal); J91.8 Pleural effusion in other conditions classified elsewhere
CPT/HCPCS: 36415; 71260; 74177; 82565; Q9967

== ENCOUNTER → 2018-04-07 | Outpatient (CLI) | payer MEDICARE, OTHER ==
[2017-08-20 09:55] VITALS: BMI 24.0
[~2018-04-07] MED LIST changes: -IOPAMIDOL 76% 50 ML INFUS BTL 100 ML ONE; +METR500T15; -METR500T54
--- NOTE | 2018-04-07 16:37 | RADIOLOGY IMAGING REPORT ---
FACILITY: [facility] [place] PATIENT NAME: Eri Romero : 1950 MR: [id number] V: [id number] EXAM DATE: ORDERING PHYSICIAN: ISIS BUENO TECHNOLOGIST: [facility] Patient: Eri Romero : 1950 Visit/Account:[id number] Date of Sevice: 04/07/2018 Ultrasound-guided paracentesis Indication: Abdominal pain after eating. Malignant neoplasm of the right ovary. Comparison: CT abdomen and pelvis dated 02/13/2018. Findings: After informed consent was obtained, the patient was prepped and draped in standard sterile fashion. A timeout was performed. Local anesthesia was obtained with 1% Xylocaine. A small skin incision was made over the right upper abdomen. Under ultrasound guidance, a 5-Belarusian catheter was advanced into the upper abdominal ascites. 1900 mL of yellow/orange fluid was removed. There are no immediate complications and the patient tolerated the procedure well. Impression: Successful ultrasound-guided paracentesis. 1900 mL of yellow/orange fluid was removed. Report Dictated By: Dmitry Hughes MD at 04/07/2018 4:28 PM Report E-Signed By: Dmitry Hughes MD at 04/07/2018 4:33 PM WSN:[email or web address]
== END ==
LOC: US 07:00
PROVIDERS: ATTEND Nurse Practitioner Family
DX: R10.9 Unspecified abdominal pain (principal); Z85.43 Personal history of malignant neoplasm of ovary; C56.9 Malignant neoplasm of unspecified ovary; R14.0 Abdominal distension (gaseous); R19.07 Generalized intra-abdominal and pelvic swelling, mass and lump
CPT/HCPCS: 36415; 49083; 85610; A7048

== ENCOUNTER → 2018-04-23 | Outpatient (CLI) | payer MEDICARE, OTHER ==
[2017-08-20 09:55] VITALS: BMI 24.0
== END ==
LOC: US 04-21 10:46
PROVIDERS: ATTEND Internal Medicine Medical Oncology
DX: C56.9 Malignant neoplasm of unspecified ovary (principal)
CPT/HCPCS: 93306

== ENCOUNTER → 2018-06-23 | Outpatient (CLI) | payer MEDICARE, OTHER ==
[2017-08-20 09:55] VITALS: BMI 24.0
[~2018-06-23] MED LIST changes: +IOPAMIDOL 76% 150 ML INFUS BTL 150 ML ONE; -VANC125C3 PO; +VANC125C4 PO
--- NOTE | 2018-06-23 17:05 | RADIOLOGY IMAGING REPORT ---
FACILITY: [facility] PATIENT NAME: Eri Romero : 1950 MR: [id number] V: [id number] EXAM DATE: ORDERING PHYSICIAN: FAVIAN GARCIA TECHNOLOGIST: Location: [facility] Patient: Eri Romero : 1950 Visit/Account:[id number] Date of Sevice: 06/23/2018 CT CHEST ABDOMEN PELVIS W/CON HISTORY: Right ovarian cancer ADDITIONAL HISTORY: None. TECHNIQUE: Following administration of IV contrast axial images acquired through the chest abdomen a nd pelvis during the portal venous phase. Coronal and sagittal reformatting was also performed.Dose Lowering Technique One of the following dose optimization techniques was utilized in the performance of this exam: Autom ated exposure control; adjustment of the mA and/or kV according to the patient's size; or use of an i terative reconstruction technique. Specific details can be referenced in the facility's radiology C T exam operational policy. CONTRAST: 75 mL Isovue-370 COMPARISON: February 13, 2018 FINDINGS: CHEST: Lungs/Pleura: Coarse septal thickening and thickened intralobular septa throughout the right lung is slightly increased in the interim is thickening along the superior aspect of the major fissure on th e left that appears unchanged. There is coarse irregular pleural thickening along the anterior aspec t the lingula that also appears unchanged Mediastinum/lymph nodes: The previous study described level four lymph node on the right has increas ed in size and now measures 1.3 x 1.2 cm as opposed to 1 x 0.8 cm three There are increasing bilateral axillary lymph nodes. A hotel services sales representative lymph node in the left axilla measures 1.2 x 0.1 cm previously 0.6 x 0.6 cm and has a rounded morphology. There is an additional lymph node in the inferior left axilla with a rounded morphology measuring 1 .4 x 1 cm previously 2 x 2 mm. There is a referenced right axillary lymph node measuring 1 x 0.8 cm previously measuring 6 x 4 mm al so with a rounded morphology. Prevascular space lymph nodes have increased with the largest measuring 1.1 x 0.8 cm previously 3 x 3 mm AP window lymph nodes are mildly prominent although appear relatively unchanged. Pretracheal and precarinal lymph nodes appear stable There is a 1.4 x 1.1 x 2.4 cm ovoid hypoattenuating mass present extrinsic compression on the posteri or wall of the lower third of the esophagus which may represent a lymph node or other mass lesion and previously measuring 4 x 5 mm and was barely perceptible. Heart/vessels: Right IJ implanted port is in good position with distal tip in superior vena cava. M oderate to severe coronary artery calcifications are present. Bones/soft tissues: . There are sternotomy sutures present. No aggressive appearing bone lesions are seen. ABDOMEN AND PELVIS: Hepatobiliary: The gallbladder is severely contracted Spleen: Negative. Pancreas: Uncinate process of the pancreas appears more prominent anteriorly when compared to the pr ior study Adrenals: Negative. Kidneys ureters and bladder : Subcentimeter hypodensity upper pole the right kidney may represent a c yst although is too small to characterize Genitalia: Postsurgical changes from prior hysterectomy and bilateral salpingonephrectomy GI: Wall of the lower esophagus appears circumferentially thickened . There is a surgical anastom osis in the sigmoid colon. Vessels/spaces/nodes: There has been an increase in the mild amount of ascites in the upper abdomen. Is a trace amount of fluid in the pelvis . There has been development of celiac and portacaval ly mph nodes with abnormal morphology. There is also been development of increased mesenteric lymph nod es with abnormal morphology. A referenced mesenteric lymph node to the left of midline measures 1.9 x 1.8 cm. there also appear to be increased omental implants in the left upper abdomen and along the anterior mid abdomen Bones/soft tissues: No aggressive appearing bone lesions are seen dditional findings: None pertinent. IMPRESSION:There is a mild increase in the irregular nodular thickening along the right-sided pleura concerning for metastatic disease. The loculated small right pleural effusion appears unchanged. Th e coarse septal thickening in thickening of the intralobular septa throughout the right lung is sligh tly increased which may represent lymphangitic spread. There is increasing mediastinal and bilateral axillary adenopathy in addition to increasing celiac, p ortacaval and mesenteric adenopathy. A 1.4 x 1.1 x 2.4 cm hypoattenuating mass is producing extrinsi c compression on the posterior wall the lower third of the esophagus which may represent a lymph node or other mass lesion.. Increasing omental metastases Increase in the mild amount of abdominal ascites The uncinate process the pancreas appears more prominent anteriorly when compared the prior study. T his could be related to an adjacent giovani mass although a primary pancreatic mass not entirely ruled out Wall of the lower esophagus is circumferentially thickened which could be related to gastroesophageal reflux disease although clinical correlation needed. Report Dictated By: Zulay Weldon MD at 06/23/2018 4:28 PM Report E-Signed By: Zulay Weldon MD at 06/23/2018 5:01 PM WSN:[email or web address]
== END ==
LOC: CT 01:06
PROVIDERS: ATTEND Obstetrics & Gynecology
DX: I25.10 Atherosclerotic heart disease of native coronary artery without angina pectoris (principal); R91.8 Other nonspecific abnormal finding of lung field; R59.0 Localized enlarged lymph nodes; K82.9 Disease of gallbladder, unspecified; Z90.710 Acquired absence of both cervix and uterus; Z90.79 Acquired absence of other genital organ(s); Z90.722 Acquired absence of ovaries, bilateral; C56.1 Malignant neoplasm of right ovary; C78.6 Secondary malignant neoplasm of retroperitoneum and peritoneum; Z93.3 Colostomy status
CPT/HCPCS: 71260; 74177; Q9967

== ENCOUNTER → 2018-07-27 | Outpatient (CLI) | payer MEDICARE, OTHER ==
[2017-08-20 09:55] VITALS: BMI 24.0
[~2018-07-27] MED LIST changes: -IOPAMIDOL 76% 150 ML INFUS BTL 150 ML ONE
[2018-07-27 11:06] VITALS: BP 133/92
[2018-07-27 11:14] LABS: PLATELET COUNT, AUTOMATED 272 K/uL (150-450)
== END ==
LOC: SPU 08:43
PROVIDERS: ATTEND Obstetrics & Gynecology
DX: C56.1 Malignant neoplasm of right ovary (principal)
CPT/HCPCS: 36415; 82040; 82247; 82310; 82374; 82435; 82565; 82947; 83735; 84075; 84100; 84132; 84155; 84295; 84450; 84460; 84520; 85025

== ENCOUNTER 2018-08-03 09:00 | Outpatient (RCR) | payer MEDICARE, OTHER ==
[2017-08-20 09:55] VITALS: Ht 160 cm; Wt 61.1 kg
--- NOTE | 2018-05-04 09:17 | NUR ---
SW sent pt two gas cards to help with travel back and forth to [place].
[2018-05-05 11:14] LABS: PLATELET COUNT, AUTOMATED 385 K/uL (150-450)
[2018-05-07 10:45] VITALS: BP 140/85
[2018-05-07] MEDS: DEXAMETHASONE SOD PHOS 10MG/ML IVP PRN (11:45)
[2018-05-07] MEDS: NS(*) 0.9% 500 ML BAG 500 ML IV PRN (12:38)
[2018-05-07] MEDS: DEXTROSE 5%(*) 100 ML BAG 100 ML IVPB PRN (12:39)
[2018-05-07] MEDS: NS(*) 0.9% 100 ML BAG 100 ML IVPB PRN (12:39)
[2018-05-07] MEDS: HEPARIN FLSH (PORT) 500 UN/5ML IVP PRN (12:40)
--- NOTE | 2018-05-07 13:33 | ONCOLOGY FOLLOW UP NOTE ---
EVENT DATE: May 07, 2018 CHIEF COMPLAINT Patient is here for Cycle #2 with Doxil plus Avastin. DIAGNOSIS Stage MORRIS high-grade serous ovarian adenocarcinoma. INTERIM HISTORY Eri returns to clinic today for followup and to initiate Cycle #2 with Doxil plus Avastin. She received her first cycle under the direction of Dr. Carrasquillo in [place]. She is status post six cycles with carboplatin and paclitaxel. Unfortunately, the length of eyak-free interval was only about five months. She was taken to the OR for diagnostic laparoscopy, which confirmed recurrence. She has also had ascites and last had a paracentesis performed in early March this year. She reports she has had a total of three paracenteses thus far. She did have some numbness in her fingertips after eyak therapy. She also had some vertigo and apparently back around August of last year she developed C. diff colitis, requiring doublet oral antibiotic therapy with Flagyl and Vancomycin. She has not had any recurrence of those symptoms. She tells me that she is feeling quite well. She does have some occasional fatigue but tells me that she really feels good and attributes this to not sleeping very much. She reports that she is up urinating approximately every three hours at night. She denies any significant dysuria or hematuria. She also continues to experience ongoing abdominal pain, which has been occurring since diagnosis. She does report that she did have some instances of this very fleeting, somewhat sharp abdominal pain that only lasted a couple of seconds. This only occurred a couple of times a week and she tells me that this has not recurred in at least the last four or five days. She believes this might have been GERD as well. Her bowels have been working quite well. She has not had any nausea or vomiting. She does report that she has occasional joint pain in her fingers, which she likens to "trigger finger type pain". She is accompanied in the office today by her , her daughter and two grandchildren and a close friend of hers. PAST MEDICAL HISTORY 1. Coronary artery disease, status post AZ about five years ago, status post CABG x2 2. Hypercholesterolemia. 3. Hypertension. 4. Asthma. FAMILY HISTORY Her mother has a history of bladder cancer, diagnosed at age 82. SOCIAL HISTORY The patient is a nonsmoker, and she has historically drunk about one alcoholic beverage per day. There is no history of illicit drug use. CURRENT MEDICATIONS 1. Compazine. 2. Advair. 3. Dymista nasal spray. 4. Baby aspirin. 5. Lovaza. 6. Calcium/vitamin D. 7. Vitamin C. 8. Multivitamin. 9. Niacin. 10. Oral vancomycin. ALLERGIES PENICILLINS. REVIEW OF SYSTEMS CONSTITUTIONAL: Patient denies any recent fevers, chills or night sweats. No infection type symptoms. Her appetite is excellent. HEENT: She denies any oral ulcerations or lesions. CARDIOVASCULAR: She denies any chest pain. No palpitations. No syncope or presyncope. RESPIRATORY: She denies any shortness of breath. No dyspnea on exertion. No cough, hemoptysis or pleuritic chest pain. GI: She has ongoing lower abdominal pain, which has been present since diagnosis. She has had some occasional fleeting sensations, as detailed above, which she believes could have been GERD. These only lasted a few seconds and there were no other associated symptoms. No nausea or vomiting. She is off her pantoprazole now, which she believes exacerbated symptoms. She will occasionally use [id number] Gaviscon for GERD. No bright red blood per rectum or melena. Appetite is excellent per her report. : She reports nocturia x at least 3 to 4. She denies any dysuria or hematuria. She is not sure but she thinks perhaps she is emptying her bladder every time she urinates but cannot really tell. MUSCULOSKELETAL: She has some occasional intermittent fatigue but overall tells me that she feels quite well. She also reports some occasional intermittent joint aches in her fingers, which she likens to "trigger finger". None of these aches require pain medication per patient. PSYCH: Patient is in good spirits. She denies any severe depression, severe anxiety, suicidal or homicidal ideation. The rest of a 12-point review of systems was performed and is otherwise negative. PHYSICAL EXAMINATION VITAL SIGNS: Weight today 60.4 kg, T 98.0, P 73, R 16, BP 140/85, oxygen saturation 92% on room air. GENERAL: This is a pleasant 68-year old woman who appears in excellent spirits. She appears well-hydrated, well-nourished and is in no acute distress. EYES: Sclerae anicteric. HEAD: Atraumatic, normocephalic. ENT/MOUTH: No mucositis. No oral lesions. NECK: Supple. No lymphadenopathy. No JVD. CARDIOVASCULAR: Heart rate regular rhythm. No ectopy. LUNGS: Fairly clear breath sounds to auscultation bilaterally, although right lower lobe is diminished. Patient has history of a right pleural effusion seen in February 2018 on imaging. No shortness of breath on exam. Chest expansion is symmetrical. Respiratory effort is normal. GI: Abdomen soft, nontender, nondistended. There is no gross ascites seen. Negative fluid wave. NEURO: Patient is awake, alert, oriented x3. PSYCH: Mood and affect are appropriate. EXTREMITIES: No edema. No clubbing or cyanosis. MUSCULOSKELETAL: No focal areas of pain. Gait is steady. LABORATORY CBC on May 05, 2018: WBC 5.5, ANC 3.1, hemoglobin 14.1, hematocrit 42.3%, platelets 385,000. CMP on the same date of service revealed normal sodium at 142, normal potassium at 4.4, serum creatinine normal at 0.70, calcium normal 9.8, total bilirubin normal at 0.4, total protein mildly elevated at 8.5 and mildly elevated glucose at 112. CA-125 on May 05, 2018: Elevated at 327. This has increased from 22 back in January 2018, although patient did have another tumor marker drawn between that time in [place]. I do not have that record in front of me at this time, although patient believes this was actually elevated in the [address] chest, abdomen and pelvis with contrast at [facility] on March 18, 2018: 1. Loculated right pleural effusion, larger than before, now small. Pleural enhancement at right lung base, septal thickening and volume loss in the right hemithorax. 2. Breast and axilla normal. No adenopathy. 3. No parenchymal lesions in the liver. New and enlarging subcapsular low- attenuation tumor deposits. 4. Fluid in mesenteric route. 5. Peritoneum, no free air. New moderate free-fluid. Peritoneal enhancement in pelvis especially. New low attenuation tumor deposit scalloping liver as above. IMPRESSION 1. No visible local recurrence. New moderate ascites with peritoneal thickening and perihepatic tumor deposits. 2. Increased loculated right pleural effusion with pleural enhancement. This may also reflect metastasis. 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 She completed six cycles with carboplatin/Taxol. Her eyak-free interval was only about five months. Recurrence was confirmed with diagnostic laparoscopy. She is being co-managed by Dr. Carrasquillo. She has been initiated on Doxil plus Avastin and received her first cycle in [place]. Dr. Wells is managing her locally. She has tolerated her first cycle overall quite well. She has not had any nausea, vomiting and has not had any obvious recurrence of ascites. She is overall feeling quite well and labs are in great range today, with the exception of most recent tumor marker, which was elevated in the 300 range. At this point, I do not feel that there is need to hold treatment just yet. Dr. Carrasquillo does plan to see her back in [place] after her third cycle. She may have beginning of a urinary tract infection, although recent urinalysis did not reveal any bacteria. She is having some nocturia and more frequent urination. 1. 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 Patient has been initiated on Doxil plus Avastin and she will proceed with her second cycle today. She is well-versed on potential side effects and even risks to include bowel perforation. Currently, she has not had any symptoms consistent with bowel perforation but she is aware to let us know of any change. 2. Labs: Tumor marker has risen up to 300 [address] I have informed Dr[address] Wells. He is in agreement with continuing treatment today. 3. Possible early urinary tract infection/urinary frequency. We will treat prophylactically with a short course of Bactrim x3 days. She will alert us of any new symptomatology. 4. Patient will return to clinic in three weeks to initiate Cycle #3 with Doxil plus Avastin. We will plan for her to see Dr. Carrasquillo as scheduled and patient believes this will be after her third cycle. MTDD
[2018-05-07 14:33] VITALS: BP 142/86
--- NOTE | 2018-05-08 08:30 | Medical Nutrition Therapy ---
Nutrition Anthropometrics Height (Inches): 63.00 Height (Calculated Centimeters: 160.0200 Weight (Pounds): 140 Hx Weight Loss: Yes (pt states usual wt about 6 months ago -153 lbs ) Pascual Nutrition Score: Pascual Nutrition Risk Score: Dietary Referral Nutrition Risk Factors: Nutrition Risk Comment: Nutritional Education Nutrition Education Topic: Other (Cancer) Learning Readiness: Not Interested Response to Teaching: Patient Refused Teaching Recipient: Patient Nutrition Monitoring & Eval RD Patient Assessment Time: [address] Assessment Type: RD Education Patient Nutrition Acuity: 2-Moderate Nutritional Comment: 05/07: Pt and sports broadcasting internship discussed about her food and nutritional intake. Pt stated she already had talked to a dietitian and was not interested in educational material. PAL FINN May 08, 2018 08:30
[2018-05-13 10:05] VITALS: BP 126/81
[2018-05-13 10:30] LABS: PLATELET COUNT, AUTOMATED 292 K/uL (150-450)
[2018-06-03 15:25] LABS: PLATELET COUNT, AUTOMATED 357 K/uL (150-450)
[2018-06-04 10:06] VITALS: BP 145/81
[2018-06-04] MEDS: NS(*) 0.9% 500 ML BAG 500 ML IV PRN (10:10)
[2018-06-04] MEDS: HEPARIN FLSH (PORT) 500 UN/5ML IVP PRN (10:11)
[2018-06-04] MEDS: DEXAMETHASONE SOD PHOS 10MG/ML IVP PRN (10:20)
[2018-06-04] MEDS: DEXTROSE 5%(*) 100 ML BAG 100 ML IVPB PRN (11:01)
--- NOTE | 2018-06-06 17:34 | ONCOLOGY FOLLOW UP NOTE ---
EVENT DATE: June 04, 2018 CHIEF COMPLAINT Patient is here for Cycle #3 with Doxil and Avastin. DIAGNOSIS Stage MORRIS high-grade serous ovarian adenocarcinoma. INTERIM HISTORY Eri returns to clinic today for followup and to initiate Cycle #3 with Doxil plus Avastin. She received her first cycle under the direction of Dr. Carrasquillo in [place]. She is status post six cycles with carboplatin and paclitaxel. Unfortunately, the length of [place]-free interval was only about five months. She was taken to the OR for diagnostic laparoscopy, which confirmed recurrence. She has also had ascites and last had a paracentesis performed in early March this year. She reports she has had a total of three paracenteses thus far. She did have some numbness in her fingertips after [place] therapy. She also had some vertigo, and apparently back around August of last year, she developed C. diff colitis requiring double oral antibiotic therapy with Flagyl and vancomycin. She has not had any recurrence of those symptoms. Eri tells me that she has been feeling quite well since her last visit. She has occasional fatigue, but this is quite manageable. She is no longer having UTI symptoms. She denies any significant dysuria or hematuria. We did treat her for a possible mild UTI at her last visit. She has some ongoing abdominal pain which has been occurring since diagnosis. This is actually improved. Her GERD is under control with daily Zantac. Her bowels are moving quite well. She had a couple of episodes of very mild nausea after her last visit, but tells me that Compazine alleviated this. Prior to that, she had not had any episodes of nausea or vomiting at all. She has had occasional joint pain in her fingers which is stable. She is accompanied to the office today by her . After today's treatment, she will be following up with Dr. Rojas in [place]. PAST MEDICAL HISTORY 1. Coronary artery disease, status post IA about five years ago, status post CABG x2. 2. Hypercholesterolemia. 3. Hypertension. 4. Asthma. FAMILY HISTORY Her mother has a history of bladder cancer, diagnosed at age 82. SOCIAL HISTORY The patient is a nonsmoker, and she has historically drank about one alcoholic beverage per day. There is no history of illicit drug use. CURRENT MEDICATIONS 1. Compazine. 2. Advair. 3. Dymista nasal spray. 4. Baby aspirin. 5. Lovaza. 6. Calcium/vitamin D. 7. Vitamin C. 8. Multivitamin. 9. Niacin. 10. Oral vancomycin. ALLERGIES PENICILLINS. REVIEW OF SYSTEMS CONSTITUTIONAL: Patient denies any recent fevers, chills, or night sweats. No infection-type symptoms. Her appetite is excellent. HEENT: She denies any oral ulcerations or lesions. CARDIOVASCULAR: She denies any chest pain. No palpitations. No syncope or presyncope. RESPIRATORY: She denies any shortness of breath. No dyspnea on exertion. No cough, hemoptysis, or pleuritic chest pain. GASTROINTESTINAL: She has ongoing lower abdominal pain which has been present since diagnosis. She has some GERD symptoms which are controlled with daily Zantac. She had a couple of episodes of "very mild nausea," which she treated with Compazine since her last cycle. Prior to that, she had not experienced any nausea or vomiting at all. No bright red blood per rectum or melena. Appetite is excellent. She tells me she simply cannot eat as much as she used to. GENITOURINARY: She reports nocturia approximately three times per night. No dysuria or hematuria. No UTI symptoms. MUSCULOSKELETAL: She has some intermittent occasional joint aches. She has reported symptoms such as trigger finger. PSYCHIATRIC: Patient is in good spirits. She denies any severe depression, severe anxiety, suicidal or homicidal ideation. The remainder of a 12-point review of systems was performed today and is otherwise negative. PHYSICAL EXAMINATION VITAL SIGNS: Weight 60 kg, stable. T 97.7, P 56, R 17, BP 145/81, oxygen saturation 92% room air. GENERAL: In general, this is a pleasant 68-year old woman who appears well hydrated, well nourished, and is in no acute distress. HEAD: Atraumatic, normocephalic. EYES: Sclerae anicteric. ENT, MOUTH: No mucositis. No oral lesions. Moist mucous membranes. NECK: Supple. No lymphadenopathy. No JVD. CARDIOVASCULAR: Heart rate regular rhythm. No ectopy. LUNGS: Fairly clear breath sounds bilaterally, diminished at the bases. She has a history of a right pleural effusion seen in February 2018. No focal findings. GASTROINTESTINAL: Abdomen soft, nontender, nondistended. There is no ascites visible. NEUROLOGIC: Patient is awake, alert, oriented x3. PSYCHIATRIC: Mood and affect are appropriate. EXTREMITIES: No edema. No clubbing or cyanosis. MUSCULOSKELETAL: No focal areas of pain. Gait is steady. LABORATORY CBC on 06/03/2018: WBC 5.6, ANC 3.3, hemoglobin 14.5, hematocrit 42.8%, platelets 357,000. CMP on the same date: Mildly elevated glucose at 111, mildly elevated AST at 36, up from 34, and mildly low protein at 8.4. CA-125 on 05/05/18: Up to 327. Last CA-125 done here on 02/04/18 was 22. She has had some interval tumor markers done in [place]. These will be repeated at her followup. IMAGING CT chest, abdomen, and pelvis with contrast at [facility] on March 18, 2018: 1. Loculated right pleural effusion, larger than before, now small. Pleural enhancement at right lung base. Septal thickening and volume loss in the right hemithorax. 2. Breast and axilla normal. No adenopathy. 3. No parenchymal lesions in the liver. New and enlarging subcapsular low- attenuation tumor deposits. 4. Fluid in mesenteric route. 5. Peritoneum, no free air. New moderate free fluid. Peritoneal enhancement in pelvis especially. New low-attenuation tumor deposit scalloping liver as above. 6. No visible local recurrence. New moderate ascites with peritoneal thickening and perihepatic tumor deposits. 7. Increased loculated right pleural effusion with pleural enhancement. This may also reflect metastasis. IMPRESSION AND PLAN This is a pleasant 68-year old woman with a recurrent [place]-resistant stage IIIC high-grade ovarian carcinoma. She completed six cycles with carboplatin/Taxol. Her [place]-free interval was only about five months. Recurrence was confirmed with diagnostic laparoscopy. She is being co-managed by Dr. Carrasquillo. She has been initiated on Doxil plus Avastin and received her first cycle in [place]. Dr. Wells is managing her locally. She has now completed two cycles total and is here for her third cycle. She did not have any nausea up until her last cycle and tells me that she really only had a couple of episodes of very mild nausea without any vomiting. This was alleviated quite well with Compazine. She does not have any obvious recurrence of ascites. She has not had any fevers or infections. She had a tumor marker in [place] with Dr. Carrasquillo which was elevated in the 300 range. For us, this was at 327 back in mid April. She will be following up with Dr. Carrasquillo probably after this cycle. She tells me she has an appointment set for the early part of June. Their plan was for her to have three cycles and then reevaluate there with repeat scans. 1. Recurrent [place]-resistant stage IIIC high-grade ovarian cancer. She has been initiated on Doxil plus Avastin and will receive her third cycle today. She is well versed on potential side effects and risks to include bowel perforation. She has no symptoms currently of bowel perforation. 2. Labs: Reviewed with patient today. 3. Patient will follow up with Dr. Carrasquillo in a few weeks post completion of cycle #3. She will have re-imaging studies done at that time. She may follow up with us sooner if needed. MTDD
[2018-07-31 11:52] VITALS: BP 135/89
[2018-07-31 13:25] VITALS: BP 162/95
[2018-07-31] MEDS: HEPARIN FLSH (PORT) 500 UN/5ML IVP PRN (13:40)
--- NOTE | 2018-07-31 22:13 | ONCOLOGY FOLLOW UP NOTE ---
EVENT DATE: July 31, 2018 CHIEF COMPLAINT Followup for ovarian cancer. HISTORY OF PRESENT ILLNESS Patient is a 68-year-old female who was seen today as a work-in. She has been receiving her care by Dr. Carrasquillo in [place], [place]. She received a new regimen of chemotherapy which included Gemzar, Avastin, and cisplatin, given on an every two-week basis, and received cycle #2 on 07/28/18. She presents today with significant diarrhea as well as nausea. She forgot to take her Compazine and dexamethasone this morning, so took it just before coming to the clinic. She complains of GERD symptoms and excessive fatigue. She initially had constipation the day after chemo. She took a stool softener, but developed abdominal cramping, so then tried a Dulcolax suppository. Since then, she has had cramping and diarrhea. She is overwhelmed by how poorly she feels. ONCOLOGY HISTORY Patient is a 68-year-old female with a recurrent, [place]-resistant stage IIIC high-grade ovarian carcinoma in April 2017. She completed six cycles with carboplatin and Taxol. The [place]-free interval was approximately five months. Recurrence was confirmed with diagnostic laparoscopy. She then initiated two cycles of Doxil plus Avastin with no improvement in her disease status. She was then switched to Gemzar, cisplatin, and Avastin. She receives her care from Dr. Carrasquillo in [place], [place]. MEDICAL HISTORY 1. Stage IIIC ovarian cancer. 2. Coronary artery disease, status post [place]. 3. Hyperlipidemia. 4. Hypertension. 5. Asthma. SURGICAL HISTORY 1. CABG times two. 2. VANIA/BSO with omentectomy, May 2017. FAMILY HISTORY Mother had a history of bladder cancer, diagnosed at age 82. SOCIAL HISTORY Patient is . She has no children. She historically drank one alcoholic beverage a day. She does not smoke or use illicit drugs. MEDICATIONS 1. Compazine. 2. Dexamethasone. 3. Advair. 4. Dymista nasal spray. 5. Baby aspirin. 6. Lovaza. 7. Calcium/vitamin D. 8. Vitamin C. 9. Multivitamin. ALLERGIES PENICILLIN. REVIEW OF SYSTEMS A 12-point review of systems is performed and is negative except as stated above. PHYSICAL EXAMINATION VITAL SIGNS: Blood pressure 130/90, pulse 88, respirations 16, temp 97.1, O2 sat 93%. GENERAL: Patient is a well-developed, but ill-appearing female in no acute distress. HEAD: Normocephalic, atraumatic. EYES: Sclerae anicteric. MOUTH: Dry mucous membranes. No lesions. LUNGS: Slightly diminished, but clear. CARDIOVASCULAR: Heart rate regular, 88 per minute. ABDOMEN: Deferred due to nausea. Questionable ascites on visual exam. EXTREMITIES: No edema. NEUROLOGIC: Nonfocal. LABORATORY No lab. IMPRESSION The patient is a 68-year-old female diagnosed with stage IIIC high-grade ovarian carcinoma in April 2017. She underwent VANIA/BSO and omentectomy in May 2017. She completed six cycles of carboplatin and Taxol. Disease-free interval was approximately five months with recurrence confirmed on diagnostic laparoscopy. She was then treated with Doxil plus Avastin, which did not show any benefit. She then began Gemzar, cisplatin, and Avastin given on an every two-week basis under the direction of Dr. Carrasquillo. PLAN 1. Stage IIIC high-grade ovarian carcinoma. Patient is seen four days after receiving cycle #2 of Gemzar, Avastin, and cisplatin. 2. GI. Low-grade nausea. This is under better control after taking oral Compazine and dexamethasone. (She had forgotten to take it early this morning.) She did have initial constipation, followed by significant diarrhea, but she feels this may be slowing down. However, as she is overall weak and likely dehydrated, she is hydrated with 1 L of normal saline. I have asked her call us if she would like to be hydrated tomorrow, and one of our nurses will call to check on her. 3. GERD. Describes GERD symptoms. She states Dr. Carrasquillo prescribed Nexium, but this was sent to a pharmacy in [place]. I prescribed omeprazole 20 mg daily (Nexium not on formulary). Once obtained, patient mentioned that this caused nausea. I recommended she not take any omeprazole at this time, but consider a trial beginning the day before her next chemo treatment. She feels that the GERD is now resolving. 4. Follow up with Dr. Carrasquillo for her next cycle of chemo or earlier if there is a problem. MTDD
[2018-08-01] MEDS: HEPARIN FLSH (PORT) 500 UN/5ML IVP PRN (10:24)
[2018-08-01] MEDS: NS(*) 0.9% 1000 ML BAG 1,000 ML IV PRN (10:24)
[2018-08-01 10:32] VITALS: BP 149/93
[2018-08-01] MEDS: NS(*) 0.9% 100 ML BAG 100 ML IVPB PRN (11:24)
[2018-08-01 11:33] VITALS: BP 177/95
[2018-08-02] MEDS: NS(*) 0.9% 1000 ML BAG 1,000 ML IV PRN (10:19)
[2018-08-02] MEDS: HEPARIN FLSH (PORT) 500 UN/5ML IVP PRN (10:20)
[2018-08-02 10:32] VITALS: BP 179/95
[2018-08-02 11:26] VITALS: BP 178/85
[~2018-08-03] VITALS: Ht 160 cm; Wt 61.1 kg
[~2018-08-03 09:00] MED LIST changes: +ALTEPLASE RECOMB 2 MG VIAL IVP PRN; +BEVACIZUMAB IVPB ONE; +DEXTROSE IVPB ONE; +DOXORUBICIN LIPOSOMAL IVPB ONE; +FAMOTIDINE 10 MG/ML SDV IV ONE; +FAMOTIDINE 10 MG/ML SDV IV PRN; -IOPAMIDOL 76% 100 ML INFUS BTL 100 ML ONE; +LIDOCAINE/SOD BICARB 8.4% SYR ID PRN; +NS(*) 0.9% 1000 ML BAG 1,000 ML IV ONE; +WATER FOR INJ,STERILE 20 ML IVP PRN; +[UNRECOGNIZED DRUG - OTHER] IVPB ONE
[2018-08-03 09:13] VITALS: BP 172/102
[2018-08-03 10:03] LABS: PLATELET COUNT, AUTOMATED 124 K/uL (150-450)
[2018-08-03 11:03] VITALS: BP 172/102
[2018-08-03 11:17] LABS: INR 1.02
[2018-08-03] MEDS ORDERED: LEVO-3 PO (17:20)
--- NOTE | 2018-08-03 18:05 | RADIOLOGY IMAGING REPORT ---
[place] [facility] [place] NAME: Eri Romero : 1950 MR: [id number] V: [id number] EXAM DATE: ORDERING PHYSICIAN: JJ LUO TECHNOLOGIST: [place] [facility] [place] Eri Rom[place] : 1950 Visit/Account:[id number] Date of Sevice: 08/03/2018 Exam type: PARACENTESIS History: Ascites, abdomen distention Comparison: CT abdomen and pelvis performed today. Findings: Small pockets of fluid were identified in the abdomen although the pockets were not large enough to b e aspirated safely. IMPRESSION: 1. Paracentesis was not performed as there was not an adequate volume of ascites to be sampled safel y Report Dictated By: Zulay Weldon MD at 08/03/2018 6:00 PM Report E-Signed By: Zulay Weldon MD at 08/03/2018 6:02 PM WSN:[email or web address]
--- NOTE | 2018-08-05 01:41 | ONCOLOGY FOLLOW UP NOTE ---
EVENT DATE: August 03, 2018 CHIEF COMPLAINT Followup for stage IV ovarian carcinoma. HISTORY OF PRESENT ILLNESS Patient is a 68-year-old female who is seen again in followup. She received her second cycle of cisplatin, Gemzar, and Avastin on 07/28/18. She presented last week with initial constipation followed by significant diarrhea as well as overall weakness and dehydration. She was hydrated daily for Friday, Friday, and Friday, and presents today in followup. She is overwhelmingly fatigued. She now complains of some mild nausea without vomiting. She has not had a bowel movement for several days. She suspects she may need a paracentesis (last paracentesis was done in March 2018), so we will schedule this, as she is somewhat distended. Eri also mentioned that she is considering stopping treatment, as she feels strongly about having quality of life and has felt so miserable on this treatment. 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 She completed six cycles with carboplatin and Taxol. The [place]-free interval was approximately five months. Recurrence was confirmed with diagnostic laparoscopy. She then initiated two cycles of Doxil plus Avastin with no improvement in her disease status. She was then switched to Gemzar, cisplatin, and Avastin. She receives her care from Dr. Carrasquillo in [place], [place]. MEDICAL HISTORY 1. Stage IIIC ovarian cancer. 2. Coronary artery disease, status post RI. 3. Hyperlipidemia. 4. Hypertension. 5. Asthma. SURGICAL HISTORY 1. CABG times two. 2. VANIA/BSO with omentectomy, May 2017. FAMILY HISTORY Mother had a history of bladder cancer, diagnosed at age 82. SOCIAL HISTORY Patient is . She has no children. She historically drank one alcoholic beverage a day. She does not smoke or use illicit drugs. MEDICATIONS 1. Compazine. 2. Dexamethasone. 3. Advair. 4. Dymista nasal spray. 5. Baby aspirin. 6. Lovaza. 7. Calcium/vitamin D. 8. Vitamin C. 9. Multivitamin. ALLERGIES PENICILLIN. REVIEW OF SYSTEMS A 12-point review of systems is performed and is negative except as stated above. PHYSICAL EXAMINATION VITAL SIGNS: Weight 61.1 kg, BP 172/102, P 82, R 16, temp 97.8, O2 sat 92%. GENERAL: Patient is a well-developed but ill-appearing female in no acute distress. HEAD: Normocephalic, atraumatic. EYES: Sclerae anicteric. MOUTH: Dry mucous membranes. No lesions. LUNGS: Slightly diminished, but clear bilaterally. CARDIOVASCULAR: Heart rate regular, 82 per minute, without murmur, S3 or S4. ABDOMEN: Soft, with slight distention, hypoactive bowel sounds. Exam is limited due to GI complaints. EXTREMITIES: No edema. NEUROLOGIC: Nonfocal. IMPRESSION The patient is a 68-year-old female with recurrent [place]-resistant stage IIIC high-grade ovarian carcinoma. She completed six cycles of carboplatin and Taxol and recurred five months later. She was initiated on Doxil plus Avastin and received two cycles with little effect. She was then started on cisplatin, Gemzar, and Avastin per Dr. Carrasquillo. PLAN 1. Ovarian carcinoma. Patient received cycle #2 of cisplatin, Gemzar, and Avastin on 07/28/18. She has been overwhelmed with side effects and is strongly considering discontinuing treatment. She has sent a message to Dr. Carrasquillo. 2. Ascites. Patient feels that she has recurrent ascites, as it "feels like before." I have scheduled her for an ultrasound-guided paracentesis today. 3. We briefly discussed end-of-life care, as patient is considering stopping treatment. She feels strongly about this and has good support from her and friends. 4. Followup pending results of paracentesis. ADDENDUM I received a call from Dr. Weldon. She attempted ultrasound-guided paracentesis, but there was minimal fluid. She did note distended loops of bowel and suspected small bowel obstruction. CT of the abdomen and pelvis was done, which confirmed this. Ms. Romero was sent to the emergency room for surgical consult and admission. MERI
--- NOTE | 2018-08-08 08:35 | ONCOLOGY FOLLOW UP NOTE ---
EVENT DATE: August 07, 2018 I spoke with patient via phone today. She was discharged from the hospital on August 05, 2018, with resolved small bowel obstruction. She initially was on clear liquids but has since progressed to soft liquids. She wonders if she can go to [place] for a long planned visit this weekend. She has had no bowel movements but has had gas and feels as if she is able to eat more. I instructed her on precautions. She will be seen again at our office on August 11, 2018. MERI
== END 2018-08-04 ==
LOC: ONC 09:00
PROVIDERS: ATTEND Internal Medicine Medical Oncology
DX: Z51.11 Encounter for antineoplastic chemotherapy (principal); C56.1 Malignant neoplasm of right ovary; R35.0 Frequency of micturition
CPT/HCPCS: 36415; 81001; 83735; 85025; 85610; 86304; 96375; 96413; 96417; G0463; J1100; J1642; J3490; J7030; J7040; J7050; J7060; J9035; Q2050; 49083; 82040; 82247; 82310; 82374; 82435; 82565; 82947; 84075; 84132; 84155; 84295; 84450; 84460; 84520; 96361; 96374; 99212; A7048; S0028

== ENCOUNTER 2018-08-03 17:02 | Inpatient (IN) | payer MEDICARE, OTHER ==
[~2018-08-03] VITALS: Ht 160 cm; Wt 62.6 kg
[~2018-08-03 17:02] MED LIST changes: -ALTEPLASE RECOMB 2 MG VIAL IVP PRN; -BEVACIZUMAB IVPB ONE; -DEXTROSE IVPB ONE; -DOXORUBICIN LIPOSOMAL IVPB ONE; -FAMOTIDINE 10 MG/ML SDV IV ONE; -FAMOTIDINE 10 MG/ML SDV IV PRN; -LIDOCAINE/SOD BICARB 8.4% SYR ID PRN; -NS(*) 0.9% 1000 ML BAG 1,000 ML IV ONE; -WATER FOR INJ,STERILE 20 ML IVP PRN; -[UNRECOGNIZED DRUG - OTHER] IVPB ONE
--- NOTE | 2018-08-03 17:11 | ER Report ---
History and Physical Time Seen By MD: 17:15 HPI/ROS CHIEF COMPLAINT: Small bowel obstruction HISTORY OF PRESENT ILLNESS: 68-year-old female patient presents to emergency room with complaints small bowel structure. Patient states that she has a history of ovarian cancer which she is seen in [place] for. She states she is not been feeling well for the past several days. She did go into see the nurse practitioner at the cancer center. They did do lab work and a CT scan of abdomen and pelvis. CT scan showed a small bowel obstruction. At that time she referred to the emergency room. Patient states she's not had any vomiting. She states she has had significant reflux. She denies any fevers or chills. Patient denies any shortness of breath, chest pain. REVIEW OF SYSTEMS: Respiratory: No cough, no dyspnea. Cardiovascular: No chest pain, no palpitations. Gastrointestinal: As noted above Musculoskeletal: No back pain. Allergies: Coded Allergies: Penicillins (Verified Allergy, Unknown, 08/03/18) Home Meds Reported Medications Levothyroxine Sodium (LEVOTHYROXINE SODIUM) 100 Mcg Tablet, 112 MCG PO QDAY, TAB 08/03/18 Prochlorperazine Maleate (Compazine) 5 Mg Tablet, BID 06/12/17 Fluticasone/Salmeterol (ADVAIR HFA 230-21 MCG INHALER) 1 Inh Inh, 1 INH INH, INH 06/12/17 [place] 3 Polyunsat Fatty Acids (LOVAZA) 1 Gm Cap, 1 GM PO TID, CAP 01/01/17 Ca Carbonate/Vitamin D3/Vit K (CALCIUM + D SOFT CHEWABLE TAB) 1 Each Tab.chew, 1 EACH PO DAILY, TAB.CHEW 01/01/17 Ascorbic Acid (VITAMIN C) 500 Mg Tablet, 500 MG PO DAILY, TAB 01/01/17 Vit A/Vit C/Vit E/Zinc/Copper (PRESERVISION AREDS SOFTGEL) 1 Each Capsule, 1 EACH PO BID, CAPSULE 01/01/17 Ubidecarenone (COQ-10) 100 Mg Capsule, 100 MG PO DAILY, CAPSULE 01/01/17 Cholecalciferol (Vitamin D3) (VITAMIN D3) 1,000 Unit Tablet, 1000 UNIT PO DAILY, TAB 01/01/17 Montelukast Sodium (MONTELUKAST SODIUM) 10 Mg Tablet, 1 TAB PO QDAY, TAB 01/01/17 Rosuvastatin Calcium (CRESTOR) 5 Mg Tablet, 10 MG PO QDAY 01/23/13 Alprazolam (ALPRAZOLAM) 0.5 Mg Tab.rapdis, 0.5 MG PO HS PRN for INSOMNIA, TAB 01/23/13 Discontinued Reported Medications Vancomycin Hcl (VANCOMYCIN HCL) 125 Mg Capsule, 125 MG PO QID for 21 Days, #84 CAPSULE 1 Refill 09/03/17 Acyclovir (ACYCLOVIR) 400 Mg Tablet, 400 MG PO BID, TAB 08/21/17 Levothyroxine Sodium (LEVOTHYROXINE SODIUM) 100 Mcg Tablet, 100 MCG PO QDAY, TAB 08/19/17 Dronabinol (MARINOL) 2.5 Mg Capsule, 2.5 MG PO BID, CAPSULE 08/18/17 Aspirin (ASPIR 81) 81 Mg Tablet.dr, 81 MG PO QDAY, TAB 01/01/17 Niacin (NIACIN) 500 Mg Tablet, 500 MG PO QDAY 01/01/17 Discontinued Scripts Vancomycin Hcl (VANCOMYCIN HCL) 125 Mg Capsule, 125 MG PO QID, #40 CAPSULE Prov:VERNON RAMIREZ DO 08/21/17 Past Medical/Surgical History Patient has a past medical history of PA, hyperlipidemia, asthma, former smoker, carpal tunnel, chronic sinus congestion, hypothyroidism, alcohol use, current chemotherapy for ovarian cancer. Patient has a surgical history of tonsillectomy, hysterectomy, previous co lectomy, double bypass. Reviewed Nurses Notes: Yes Hx Smoking: Yes (QUIT IN 1984) Smoking Status: Former Smoker Exposure to Second Hand Smoke?: Yes Hx Substance Use Disorder: No Hx Alcohol Use: Yes Constitutional Vital Sign - Last 24 Hours 08/03/18 08/03/18 17:09 17:30 Temp 98.0 Pulse 77 75 Resp 16 8 B/P (MAP) 193/106 170/100 (123) Pulse Ox 95 92 O2 Delivery Room Air Physical Exam General Appearance: The patient is alert, has no immediate need for airway protection and no current signs of toxicity. Respiratory: Chest is non tender, lungs are clear to auscultation. Cardiac: regular rate and rhythm Gastrointestinal: Abdomen is distended and tender, no masses, bowel sounds normal. Musculoskeletal: Neck: Neck is supple and non tender. Extremities have full range of motion and are non tender. Skin: No rashes or lesions. DIFFERENTIAL DIAGNOSIS: After history and physical exam differential diagnosis was considered for small bowel obstruction. Medical Decision Making EKG/Imaging Imaging Study: Single portable view of the chest. Indication: Nasogastric tube placement Comparison study: January 26, 2018 Technique: Single AP view the chest demonstrates the presence of an implanted port with the tip of the catheter at the cavoatrial junction. The patient is status post CABG. There is a nasogastric tube present with the tip overlying the stomach. The proximal sidehole is located at the level of the esophageal gastric junction. The nasogastric tube should be advanced 10 cm for optimal placement. There is a right pleural effusion. This is unchanged. There is no evidence of pneumothorax. There is no evidence of acute infiltrate. IMPRESSION: Nasogastric tube with tip overlying stomach. The proximal sidehole is at the EG junction. Report Dictated By: Alexis Maldonado at 08/03/2018 6:46 PM Report E-Signed By: Alexis Maldonado at 08/03/2018 6:48 PM ED Course/Re-evaluation ED Course Patient was admitted to an exam room, history and physical were obtained. Differential diagnoses were considered. On examination lungs are clear, heart is regular, abdomen is distended and tender. Patient had diagnosis prior to arrival in the emergency room so I did contact Dr. Grady, general surgeon. He did agree to accept the patient for admission with diagnosis small bowel structure. He did come into the emergency room and evaluated the patient prior to be admitted. We did place an NG tube. time of dictation we are awaiting for the official read from radiology for verification of placement. Patient will be admitted to the hospital with diagnosis small bowel structure. Patient did verbalize understanding and agreement with plan. Patient did note that she had elevated blood pressure. She states that historically she has normal blood pressure. I believe this is likely secondary to small bowel obstruction. We will go ahead and defer treatment at this time to surgeon and possible hospitalist. I anticipate that we will have improvement of the hypertension with resolution of a small bowel obstruction. Decision to Disposition Date: Aug 03, 2018 Decision to Disposition Time: 17:30 Depart Departure Latest Vital Signs Vital Signs Date Time Temp Pulse Resp B/P (MAP) Pulse Ox O2 Delivery O2 Flow Rate FiO2 08/03/18 17:30 75 8 170/100 (123) 92 08/03/18 17:09 98.0 Room Air Impression: Primary Impression: Small bowel obstruction Condition: Condition Unchanged Disposition: Admitted from ER Referrals: LANA VERA (PCP) ELIECER ALTMAN Aug 03, 2018 17:11
[2018-08-03] MEDS ORDERED: LEVO-3 PO (17:20)
[2018-08-03] MEDS ORDERED: ONDANSETRON 4 MG/2 ML VIAL IVP PRN (17:40)
[2018-08-03] MEDS ORDERED: HYDROmorphone HCL 2 MG/ML SDV IVP PRN (17:40)
[2018-08-03] MEDS ORDERED: ALBUTEROL 8 GM INHALER INH PRN (17:45)
[2018-08-03] MEDS ORDERED: LR(*) 1000 ML BAG 1,000 ML IV PRN (18:00)
[2018-08-03] MEDS ORDERED: LABETALOL HCL 100 MG/20ML VIAL IVP PRN (18:05)
--- NOTE | 2018-08-03 18:52 | RADIOLOGY IMAGING REPORT ---
FACILITY: [facility] - [place] PATIENT NAME: Eri Romero : 1950 MR: [id number] V: [id number] EXAM DATE: ORDERING PHYSICIAN: ELIECER ALTMAN TECHNOLOGIST: Location: [facility] Patient: Eri Romero : 1950 Visit/Account:[id number] Date of Sevice: 08/03/2018 Study: Single portable view of the chest. Indication: Nasogastric tube placement Comparison study: January 26, 2018 Technique: Single AP view the chest demonstrates the presence of an implanted port with the tip of th e catheter at the cavoatrial junction. The patient is status post CABG. There is a nasogastric tube present with the tip overlying the stomach. The proximal sidehole is loca maddy at the level of the esophageal gastric junction. The nasogastric tube should be advanced 10 cm fo r optimal placement. There is a right pleural effusion. This is unchanged. There is no evidence of pneumothorax. There is no evidence of acute infiltrate. IMPRESSION: Nasogastric tube with tip overlying stomach. The proximal sidehole is at the EG junction. Report Dictated By: Alexis Maldonado at 08/03/2018 6:46 PM Report E-Signed By: Alexis Maldonado at 08/03/2018 6:48 PM WSN:[id number]
[2018-08-03 18:56] VITALS: BP 176/96
[2018-08-03] MEDS: LR(*) 1000 ML BAG 1,000 ML IV PRN (19:08)
--- NOTE | 2018-08-03 19:23 | Gen Surgery History & Physical ---
History of Present Illness Chief Complaint Nausea, vomiting, abdominal pain. History of Present Illness The patient is a 68 yo F with known ovarian cancer undergoing chemotherapy with Avastin, oxaliplatin and gemcitabine. The patient's last infusion was on 07/28/18. She states that for the first 3 days following her infusion she did well. However, over the ensuing days the patient initially developed constipation, which she treated with Ducolax. She subsequently developed nausea, vomiting and diarrhea. She reports she has not had any bowel movements for about 48 hours, though she has passed flatus intermittently including this AM. She reports abdominal bloating. She has been unable to tolerate any significant PO intake for about 4 days. The patient denies any similar reaction with prior rounds of chemotherapy. She has never had prior small bowel obstructions. She does note she has had multiple prior paracenteses for abdominal ascites, her most recent was attempted this AM without significant enough volume of intraperitoneal fluid to perform. She has undergone a prior laparotomy with debulking including omentum, uterus, ovaries and a segmental colectomy. On presentation to the ED this evening, the patient underwent CT scan of the abdomen and pelvis which demonstrates small volume ascites and diffuse small bowel dilation to a greatest diameter of 3.6 cm. There is no extraluminal free air. Patient has no leukocytosis but does have a left shift. History Problems: (1) Hypothyroidism Status: Chronic (2) HTN (hypertension) Status: Chronic (3) Ovarian cancer Status: Chronic (4) S/P CABG (coronary artery bypass graft) Status: Chronic (5) History of laparotomy Status: Resolved Home Meds Reported Medications Levothyroxine Sodium (LEVOTHYROXINE SODIUM) 100 Mcg Tablet, 112 MCG PO QDAY, TAB 08/03/18 Prochlorperazine Maleate (Compazine) 5 Mg Tablet, BID 06/12/17 Fluticasone/Salmeterol (ADVAIR HFA 230-21 MCG INHALER) 1 Inh Inh, 1 INH INH, INH 06/12/17 [place] 3 Polyunsat Fatty Acids (LOVAZA) 1 Gm Cap, 1 GM PO TID, CAP 01/01/17 Ca Carbonate/Vitamin D3/Vit K (CALCIUM + D SOFT CHEWABLE TAB) 1 Each Tab.chew, 1 EACH PO DAILY, TAB.CHEW 01/01/17 Ascorbic Acid (VITAMIN C) 500 Mg Tablet, 500 MG PO DAILY, TAB 01/01/17 Vit A/Vit C/Vit E/Zinc/Copper (PRESERVISION AREDS SOFTGEL) 1 Each Capsule, 1 EACH PO BID, CAPSULE 01/01/17 Ubidecarenone (COQ-10) 100 Mg Capsule, 100 MG PO DAILY, CAPSULE 01/01/17 Cholecalciferol (Vitamin D3) (VITAMIN D3) 1,000 Unit Tablet, 1000 UNIT PO DAILY, TAB 01/01/17 Montelukast Sodium (MONTELUKAST SODIUM) 10 Mg Tablet, 1 TAB PO QDAY, TAB 01/01/17 Rosuvastatin Calcium (CRESTOR) 5 Mg Tablet, 10 MG PO QDAY 01/23/13 Alprazolam (ALPRAZOLAM) 0.5 Mg Tab.rapdis, 0.5 MG PO HS PRN for INSOMNIA, TAB 01/23/13 Discontinued Reported Medications Vancomycin Hcl (VANCOMYCIN HCL) 125 Mg Capsule, 125 MG PO QID for 21 Days, #84 CAPSULE 1 Refill 09/03/17 Acyclovir (ACYCLOVIR) 400 Mg Tablet, 400 MG PO BID, TAB 08/21/17 Levothyroxine Sodium (LEVOTHYROXINE SODIUM) 100 Mcg Tablet, 100 MCG PO QDAY, TAB 08/19/17 Dronabinol (MARINOL) 2.5 Mg Capsule, 2.5 MG PO BID, CAPSULE 08/18/17 Aspirin (ASPIR 81) 81 Mg Tablet.dr, 81 MG PO QDAY, TAB 01/01/17 Niacin (NIACIN) 500 Mg Tablet, 500 MG PO QDAY 01/01/17 Discontinued Scripts Vancomycin Hcl (VANCOMYCIN HCL) 125 Mg Capsule, 125 MG PO QID, #40 CAPSULE Prov:VERNON RAMIREZ DO 08/21/17 Allergies: Coded Allergies: Penicillins (Verified Allergy, Unknown, 08/03/18) Review of Systems Gastrointestinal: Nausea, Vomiting, Diarrhea, Constipation, Abdominal Pain, Other (Abdominal bloating) Exam General Appearance: Alert, Awake, No Acute Distress Neuro: No Gross deficits Eyes: PERRLA ENT: Moist Mucous Membranes, Oropharynx Clear Cardiovascular: Normal Rhythm & Peripheral Pulses, Regular Rate and Rhythm Respiratory: No Respiratory Distress, Clear to Auscultation Chest: Other (Abd distended, dull to percussion. Normoactive bowel sounds. No rebound tenderness or guarding. Well healed vertical midline incision. ) Musculoskeletal: No Weakness/Pain Extremities: Soft and Non Tender, Warm, Perfused Integumentary: Skin Intact without Lesion / Mass Psych: Alert & Oriented X3 Medical Decision Making EKG / Imaging Monitor Interpretation: Normal Sinus Rhythm Assessment and Plan Problems: (1) Small bowel obstruction Status: Acute Assessment & Plan: Small bowel obstruction - may be secondary to known malignancy versus prior laparotomy - place NGT for small bowel decompression - MIVF while NPO - PRN antiemetics - PRN pain medications - will plan for small bowel follow through if no ROBF by tomorrow AM - if no ROBF for >24 hours will need to consider TPN as patient has already been without significant intake for 96 hours (2) Asthma Status: Chronic Assessment & Plan: Asthma - hold home oral medications - PRN albuterol - pulmonary toilet - oxygen supplementation PRN (3) Hypothyroidism Status: Chronic Assessment & Plan: Hypothyroidism - hold oral levothyroxine while NPO - replace with IV levothyroxine (4) HTN (hypertension) Status: Chronic Assessment & Plan: Hypertension - labetalol PRN for SBP >160 (5) Ovarian cancer Status: Chronic Assessment & Plan: Ovarian cancer - no current indication for treatment Time Spent: > 30 min Venous Thromboembolism VTE Risk Physician Assess for VTE Risk: Yes Patient's VTE Risk: High VTE Diagnostic Test 2 Days Prior to Admit: No Antithrombotics Is Pt On Any Antithrombotics?: Yes SHANI YOON MD Aug 03, 2018 17:55
[2018-08-03] MEDS: KETOROLAC 15 MG/ML VIAL IVP SCH (19:47)
[2018-08-03 23:28] VITALS: BP 150/84
[2018-08-04] VITALS (11 sets, daily range): BP systolic 125–180; BP diastolic 62–106; Ht 160 cm; Wt 62.6 kg
[2018-08-04] MEDS: LR(*) 1000 ML BAG 1,000 ML IV PRN ×3 (03:24→23:14)
[2018-08-04] MEDS: KETOROLAC 15 MG/ML VIAL IVP SCH ×5 (05:54→23:15)
[2018-08-04 06:15] LABS: PLATELET COUNT, AUTOMATED 73 K/uL (150-450)
[2018-08-04 06:22] LABS: INR 1.06
[2018-08-04] MEDS ORDERED: DIATRIZOATE MEGL/DIATRIZOA SOD 120 ML SOLN PO ONE (08:23)
--- NOTE | 2018-08-04 09:10 | General Surgery Progress Note ---
Subjective Progress Notes Subjective Pain and nausea improved significantly O/N Denies any fevers or chills Reports one instance of flatus this AM Denies any BMs Physical Exam Vital Signs Date Time Temp Pulse Resp B/P (MAP) Pulse Ox O2 Delivery O2 Flow Rate FiO2 08/04/18 07:21 97.7 68 18 171/90 (117) 93 Nasal Cannula 1.0 Intake and Output 08/04/18 07:00 Output Total 700 ml Balance -700 ml Output Gastric Drainage Total 700 ml # Voids 2 General Appearance: Alert, Awake, No Acute Distress Neuro: No Gross deficits Eyes: PERRLA ENT: Moist Mucous Membranes, Other (NGT in place with 700 mL bilious output) Cardiovascular: Normal Rhythm & Peripheral Pulses, Regular Rate and Rhythm Respiratory: No Respiratory Distress, Clear to Auscultation GI: Other (Softly distended, active bowel sounds with intermittent high pitched bowel sounds. No rebound tenderness or guarding. Decreased upper midline tenderness. No palpable masses.) Musculoskeletal: No Weakness/Pain Extremities: Soft and Non Tender, Warm, Perfused Integumentary: Skin Intact without Lesion / Mass Psych: Alert & Oriented X3, Appropriate Mood & Affect Result Diagram: 08/04/1852908/04/18529 Monitor Interpretation: Normal Sinus Rhythm Assessment and Plan Problems: (1) Small bowel obstruction Status: Acute Assessment & Plan: Small bowel obstruction - may be secondary to known malignancy versus prior laparotomy - continue NGT decompression - MIVF while NPO - PRN antiemetics - PRN pain medications - small bowel follow through this AM - start TPN (2) Asthma Status: Chronic Assessment & Plan: Asthma - hold home oral medications - PRN albuterol - pulmonary toilet - oxygen supplementation PRN (3) Hypothyroidism Status: Chronic Assessment & Plan: Hypothyroidism - hold oral levothyroxine while NPO - replace with IV levothyroxine (4) HTN (hypertension) Status: Chronic Assessment & Plan: Hypertension - labetalol PRN for SBP >160 (5) Ovarian cancer Status: Chronic Assessment & Plan: Ovarian cancer - no current indication for treatment Exam Sepsis Risk: No Definite Risk SHANI YOON MD Aug 04, 2018 08:35
[2018-08-04] MEDS: ENOXAPARIN 40 MG/0.4ML SYR SC SCH (09:14)
[2018-08-04] MEDS: LEVOTHYROXINE SOD 100 MCG VIAL IVP SCH (09:14)
[2018-08-04] MEDS: PANTOPRAZOLE SOD 40 MG IV VIAL IVP SCH (09:15)
[2018-08-04] MEDS ORDERED: hydrALAZINE HCL 20 MG/ML VIAL IVP PRN (13:00)
--- NOTE | 2018-08-04 13:50 | RADIOLOGY IMAGING REPORT ---
FACILITY: [facility] - [place] PATIENT NAME: Eri Romero : 1950 MR: [id number] V: [id number] EXAM DATE: ORDERING PHYSICIAN: SHANI YOON TECHNOLOGIST: Location: [facility] Patient: Eri Romero : 1950 Visit/Account:[id number] Date of Sevice: 08/04/2018 Exam type: XR SMALL BOWEL SERIES History: Small bowel obstruction, abdomen distention Comparison: CT August 03, 2018. Findings: The patient received 100 mL of Gastrografin with 50 mL of water instilled through the NG tube. The s tomach duodenum and proximal jejunum did not appear dilated. The Gastrografin did subsequently pass through minimally prominent jejunal and ileal loops although did pass into the colon by the 4 1/2 edi r image. Period fluoroscopy was not utilized IMPRESSION: 1. The Gastrografin suspension passed through the mildly prominent jejunal and ileal loops to reach t he colon by the 4 1/2 hour image Results were called to Michelle Taylor MD at 08/04/2018 1:45 PM. Report Dictated By: Zulay Weldon MD at 08/04/2018 1:37 PM Report E-Signed By: Zulay Weldon MD at 08/04/2018 1:45 PM WSN:[email or web address]
[2018-08-05 04:57] VITALS: BP 150/85
[2018-08-05 05:00] LABS: INR 1.04
[2018-08-05 05:44] LABS: PLATELET COUNT, AUTOMATED 41 K/uL (150-450)
[2018-08-05] MEDS: KETOROLAC 15 MG/ML VIAL IVP SCH ×2 (05:50→12:55)
[2018-08-05] MEDS: LR(*) 1000 ML BAG 1,000 ML IV PRN (05:51)
[2018-08-05 06:35] VITALS: BP 159/88
--- NOTE | 2018-08-05 09:52 | Medical Nutrition Therapy ---
Nutrition Anthropometrics Height (Inches): 63.00 (EMR from 08/19/17 has a height of 64") Height (Calculated Centimeters: [phone] Weight (Pounds): 138 (Wt appears to be fairly stable wt on 08/19/17 was 140 lbs) Weight (Calculated Kilograms): 62.596 BMI: 24.4 [place] Nutrition Score: Probably Inadequate [place]ual Nutrition Risk Score: 19 Dietary Referral Nutrition Risk Factors: Nutrition Risk Comment: Physical Findings Physical Appearance: Skin Appearance Skin Appearance: Edema Edema Location Modifier: Edema Location: Type of Edema: Degree of Edema: Gastrointestinal Symptoms GI Symtoms: Appetite Changes, Bloating, Change in Bowel Pattern Tube Present: NG Bowel Sounds: Recent Bowel Pattern: Diarrhea Stool Characteristics: Nutrition/Food History N/V (Prior to admit) Poor Nutritional Diagnosis Nutritional Risk Acuity 1: GI Obstruction Nutritional Risk Acuity 2: V/D > 3 Days Nutritional Risk Acuity 3: Nausea, Cancer Nutritional Risk Acuity 4: Modified Diet Past Medical History: Ovarian cancer, hypothyroidism, CABG, laparotomy Nutritional Acuity: 1-High Energy Requirement: 1912 (MSJ) Protein Requirement: 82 Fluid Requirement: 1912 (1kcal/mL) Diet Type: TPN/PPN Nutrition Intervention: Incr diet as tolerated Diet Comment To RSA: WHEN WANG, OFFER NUTRITIONAL SUPPLEMENT Nutritional Support Recommended Enteral / Parental: TPN Recommended Rate: 42mL/hr (Provides 887 kcal, 202 g CHO D20, 50g AA5%) run for 24 hrs Recommended Goal Rate: 75 mL/hr x 24 hrs plus IVPB Lipid 20% at 14mL/hr Recommended Calories: 1920 (Estimate needs 1912 kcal) Recommended Protein: 90 Recommended Lipids Calories: 336 (~34g) Total Recommended Calories: 1920 Nutrition Monitoring & Eval Nutrition Monitoring: Monitor tolerance to TPN. Check K+, Phos, Mag, BG daily. Monitor trigylcerides weekly. RD Patient Assessment Time: [address] Assessment Type: Nutrition Support Consult Patient Nutrition Acuity: 1-High Follow Up Date: Aug 07, 2018 Nutritional Comment: Pt admitted with N/V, abdominal pain, and reports no significant PO intake in 4 days. Hx of ovarian cancer, hypothyroidism, CABG, and laparotomy. DX with SBO and asthma. Pt taking enoxaparin. Creatinine of 0.40 is decreased. Random glucose of 69 is decreased. WBC of 3.7, RBC of 3.34, Hgb of 10.7, and Hct of 30.8 are decreased. Pt currently NPO day 1. Will offer supplement when diet is increased. -AKG 08/05/18-Recieved consult for nutrition support for TPN. Reviewed pt medical hx. Has had poor oral intake X 5 days. Has SBO being treated with suction. Reviewed labs. Pt had low K+ at 3.0. Recommend starting TPN Clinimix 20/5 at 42mL/hr x 24 hrs with IVPB Lipid 20% at 14mL/hr x 12hrs. After 24 hrs begin to advance to goal by 10mL every 8 hrs to goal rate of 75 mL/hr Clinimix x 24 hrs. At goal provides 1920 kcal, 360g D20, 90g AA5%, and 34g Lipid20%. Calorie Distribution CHO 64%, Pro 23%, and Lipid 18%. CHO Load 4mg/kg/min below limit of <5mg/kg/min. Recommend adding additional K+. Recommend checking BG, Phos, and Mag daily, and Triglycerides weekly. Will continue to monitor pt tolerance to TPN.-CISCO SEGAL Aug 05, 2018 08:49
[2018-08-05] MEDS ORDERED: KCL (*) 20 MEQ/100 ML PREMIX 100 ML IV ONE (10:15)
[2018-08-05] MEDS ORDERED: POTASSIUM CHL 20 MEQ TABCR PO SCH (10:15)
--- NOTE | 2018-08-05 10:27 | Hospitalist Depart ---
Discharge Summary Reason for Hosp/Final Diag: (1) Small bowel obstruction Status: Acute Hospital Course & Plan: Small bowel obstruction - may be secondary to known malignancy versus prior laparotomy - continue NGT decompression - MIVF while NPO - PRN antiemetics - PRN pain medications - small bowel follow through this AM - start TPN 08/05/18 SBFT with slow transit to colon. Passing gas and stool, will remove NGT and adv diet. Will give PO and IV potassium prior to DC. DC teaching done. (2) Asthma Status: Chronic Hospital Course & Plan: Asthma - hold home oral medications - PRN albuterol - pulmonary toilet - oxygen supplementation PRN (3) Hypothyroidism Status: Chronic Hospital Course & Plan: Hypothyroidism - hold oral levothyroxine while NPO - replace with IV levothyroxine (4) HTN (hypertension) Status: Chronic Hospital Course & Plan: Hypertension - labetalol PRN for SBP >160 (5) Ovarian cancer Status: Chronic Hospital Course & Plan: Ovarian cancer - no current indication for treatment Departure Weight (Pounds): 138 (Wt appears to be fairly stable wt on 08/19/17 was 140 lbs) Result Diagram: 08/05/187 08/05/18436 Condition: Improved Discharge: Home Time Spent: > 30 min Discharge Instructions Home Meds Reported Medications Levothyroxine Sodium (LEVOTHYROXINE SODIUM) 100 Mcg Tablet, 112 MCG PO QDAY, TAB 08/03/18 Prochlorperazine Maleate (Compazine) 5 Mg Tablet, BID 06/12/17 Fluticasone/Salmeterol (ADVAIR HFA 230-21 MCG INHALER) 1 Inh Inh, 1 INH INH, INH 06/12/17 [place] 3 Polyunsat Fatty Acids (LOVAZA) 1 Gm Cap, 1 GM PO TID, CAP 01/01/17 Ca Carbonate/Vitamin D3/Vit K (CALCIUM + D SOFT CHEWABLE TAB) 1 Each Tab.chew, 1 EACH PO DAILY, TAB.CHEW 01/01/17 Ascorbic Acid (VITAMIN C) 500 Mg Tablet, 500 MG PO DAILY, TAB 01/01/17 Vit A/Vit C/Vit E/Zinc/Copper (PRESERVISION AREDS SOFTGEL) 1 Each Capsule, 1 EACH PO BID, CAPSULE 01/01/17 Ubidecarenone (COQ-10) 100 Mg Capsule, 100 MG PO DAILY, CAPSULE 01/01/17 Cholecalciferol (Vitamin D3) (VITAMIN D3) 1,000 Unit Tablet, 1000 UNIT PO DAILY, TAB 01/01/17 Montelukast Sodium (MONTELUKAST SODIUM) 10 Mg Tablet, 1 TAB PO QDAY, TAB 01/01/17 Rosuvastatin Calcium (CRESTOR) 5 Mg Tablet, 10 MG PO QDAY 01/23/13 Alprazolam (ALPRAZOLAM) 0.5 Mg Tab.rapdis, 0.5 MG PO HS PRN for INSOMNIA, TAB 01/23/13 Discontinued Reported Medications Vancomycin Hcl (VANCOMYCIN HCL) 125 Mg Capsule, 125 MG PO QID for 21 Days, #84 CAPSULE 1 Refill 09/03/17 Acyclovir (ACYCLOVIR) 400 Mg Tablet, 400 MG PO BID, TAB 08/21/17 Levothyroxine Sodium (LEVOTHYROXINE SODIUM) 100 Mcg Tablet, 100 MCG PO QDAY, TAB 08/19/17 Dronabinol (MARINOL) 2.5 Mg Capsule, 2.5 MG PO BID, CAPSULE 08/18/17 Aspirin (ASPIR 81) 81 Mg Tablet.dr, 81 MG PO QDAY, TAB 01/01/17 Niacin (NIACIN) 500 Mg Tablet, 500 MG PO QDAY 01/01/17 Discontinued Scripts Vancomycin Hcl (VANCOMYCIN HCL) 125 Mg Capsule, 125 MG PO QID, #40 CAPSULE Prov:VERNON RAMIREZ DO 08/21/17 Venous Thromboembolism Antithrombotics Is Pt On Any Antithrombotics?: Yes BERNY HYLTON MD Aug 05, 2018 10:27
[2018-08-05] MEDS: LEVOTHYROXINE SOD 100 MCG VIAL IVP SCH (11:02)
[2018-08-05] MEDS: PANTOPRAZOLE SOD 40 MG IV VIAL IVP SCH (11:02)
[2018-08-05] MEDS: ENOXAPARIN 40 MG/0.4ML SYR SC SCH (11:03)
[2018-08-05 11:19] VITALS: BP 175/99
[2018-08-05 11:22] VITALS: BP 155/90
[2018-08-05] MEDS ORDERED: HEPARIN FLSH (PORT) 500 UN/5ML IVP ONE (13:45)
== END 2018-08-05 14:35 | disposition home or self-care (01) | DRG 389 ==
LOC: ER 17:09 → MED 17:46
PROVIDERS: ADMIT Surgery Surgical Critical Care; ATTEND Surgery Surgical Critical Care
PROC: 0D9670Z Drainage of Stomach with Drainage Device, Via Natural or Artificial Opening (ICD-10-PCS; principal; 2018-08-03)
PROC: 3E0G76Z Introduction of Nutritional Substance into Upper GI, Via Natural or Artificial Opening (ICD-10-PCS; 2018-08-03)
DX: K56.609 Unspecified intestinal obstruction, unspecified as to partial versus complete obstruction (principal); C56.9 Malignant neoplasm of unspecified ovary; R18.8 Other ascites; I10 Essential (primary) hypertension; E03.9 Hypothyroidism, unspecified; J45.909 Unspecified asthma, uncomplicated; Z92.21 Personal history of antineoplastic chemotherapy; Z95.1 Presence of aortocoronary bypass graft; Z88.0 Allergy status to penicillin
CPT/HCPCS: 36415; 71045; 74250; 82310; 82374; 82435; 82565; 82947; 84132; 84295; 84520; 85025; 85610; 86140; 96374; 99284; C9113; J0360; J1642; J1650; J1885; J3480; J7120

== ENCOUNTER → 2018-08-03 | Outpatient (CLI) | payer MEDICARE, OTHER ==
[2017-08-20 09:55] VITALS: BMI 24.0
[~2018-08-03] MED LIST changes: +IOPAMIDOL 76% 100 ML INFUS BTL 100 ML ONE
--- NOTE | 2018-08-03 17:11 | RADIOLOGY IMAGING REPORT ---
FACILITY: [facility] [place] PATIENT NAME: Eri Romero : 1950 MR: [id number] V: [id number] EXAM DATE: ORDERING PHYSICIAN: JACOBO GAVIRIA TECHNOLOGIST: Location: [facility] Patient: Eri Romero : 1950 Visit/Account:[id number] Date of Sevice: 08/03/2018 ABDOMEN/PELVIS WITH CONTRAST HISTORY: TECHNIQUE: Following administration of IV contrast contiguous axial images acquired through the abdom en/pelvis. Coronal and sagittal reformatting also performed.Dose Lowering Technique One of the following dose optimization techniques was utilized in the performance of this exam: Autom ated exposure control; adjustment of the mA and/or kV according to the patient's size; or use of an i terative reconstruction technique. Specific details can be referenced in the facility's radiology C T exam operational policy. CONTRAST: 75 mL Isovue-370 COMPARISON: June 23, 2018 FINDINGS: Visualized lung bases: There are small posterior layering bilateral pleural effusions with compressi ve atelectasis in the lower lobes, right greater than left. Chronic septal thickening in the right l ower lobe inferior right middle lobe remains unchanged. There are dense coronary artery calcificatio ns Hepatobiliary: The gallbladder is partially contracted although to a lesser extent than on the prior study. There is a 1 cm cyst in the caudate lobe that appears unchanged Spleen: Negative. Adrenals: Negative. Pancreas: Negative. Kidneys ureters or bladder: Negative. Genitalia: Hysterectomy GI: There is circumferential thickening of the visualized distal esophagus. There is outpouching me asuring approximately 9 mm in diameter projecting just posterior to the distal portion the esophagus possibly a diverticulum or ulcer . The gastric antrum appears very thickened which could be related to gastritis. There are numerous dilated fluid-filled loops of small bowel throughout the abdomen ranging in size u p to 3.6 cm. In the left mid abdomen there is focal thickening of the jejunal loop although the tonny l distal to this area is also dilated. There is an anastomosis in the sigmoid colon. The colon does not appear dilated. Vessels/spaces/nodes: There is a small amount of abdominal ascites present The omental implants appear relatively unchanged. The celiac, mesenteric and portal caval adenopathy appear relatively unchanged Bones/soft tissues: No aggressive appearing bone lesions are identified Additional findings: None pertinent. IMPRESSION: Findings are consistent with a small bowel obstruction. Circumferential thickening of the visualized distal esophagus which may be related to esophagitis. T his does appear similar to the prior study. There is an outpouching measuring approximate 9 mm in di ameter projecting just posterior to the distal portion the esophagus which may represent a diverticul um or ulcer The gastric antrum appears very thickened which may be related to gastritis Omental implants, celiac mesenteric and portal caval adenopathy appears relatively unchanged Small amount of abdominal ascites Small posterior layering bilateral pleural effusions with compressive atelectasis lower lobes, right greater than left Additional chronic findings as described Results were called to JACOBO GAVIRIA at 08/03/2018 4:50 PM. Report Dictated By: Zulay Weldon MD at 08/03/2018 4:47 PM Report E-Signed By: Zulay Weldon MD at 08/03/2018 5:06 PM WSN:[email or web address]
== END ==
LOC: US 15:23
PROVIDERS: ATTEND Nurse Practitioner
DX: K56.609 Unspecified intestinal obstruction, unspecified as to partial versus complete obstruction (principal); R18.8 Other ascites; J90 Pleural effusion, not elsewhere classified
CPT/HCPCS: 74177; Q9967

== ENCOUNTER → 2018-08-14 | Outpatient (CLI) | payer MEDICARE, OTHER ==
[2018-08-04 08:17] VITALS: BMI 24.4
[~2018-08-14] MED LIST changes: +IOPAMIDOL 76% 100 ML INFUS BTL 100 ML ONE
--- NOTE | 2018-08-14 16:12 | RADIOLOGY IMAGING REPORT ---
FACILITY: [facility] [place] PATIENT NAME: Eri Romero : 1950 MR: [id number] V: [id number] EXAM DATE: ORDERING PHYSICIAN: JACOBO GAVIRIA TECHNOLOGIST: Location: [facility] Patient: Eri Romero : 1950 Visit/Account:[id number] Date of Sevice: 08/14/2018 CT ABDOMEN PELVIS W/ CON HISTORY: Abdominal pain. Ovarian cancer. TECHNIQUE: Axial images were obtained through the abdomen and pelvis with intravenous contrast . One of the following dose optimization techniques was utilized in the performance of this exam: automate d exposure control; adjustment of the mA and/or kv according to patient size; or use of iterative rec onstruction technique. Specific details can be referenced in the facility's radiology CT exam operati onal policy. CONTRAST: 75 mL of Isovue-370 COMPARISON: The abdomen/pelvis 08/03/2018 FINDINGS: Visualized lung bases: Stable small right pleural effusion with adjacent airspace disease. Hepatobiliary: Negative. Spleen: Negative. Adrenals: Negative. Pancreas: Negative. Kidneys/ureters/bladder: Negative. Bowel/peritoneum/mesentery: Small amount of ascites has increased. Multiple stable peritoneal nodul es. Reidentified are multiple mildly dilated small bowel loops measuring up to 3.2 cm with several l oops exhibiting mild wall thickening and enhancement. The distal ileum is decompressed. There is fl uid seen within the right colon although the remainder of the colon is more decompressed. Vessels: Negative. Lymph nodes: Stable mildly enlarged lymph nodes along the mesenteric root measuring up to 1.4 x 1.1 c m. Pelvic genitourinary: Hysterectomy. Bones/body wall: Negative. Other findings: None significant IMPRESSION: 1. Small amount of ascites has increased. Stable peritoneal nodules and mildly enlarged lymph nodes along the mesenteric root concerning for metastatic disease. 2. Similar appearance to the abdominal bowel gas pattern. Findings may be secondary to early/partia l obstruction at the level of the distal ileum. Mild thickening and enhancement of multiple small armando wel loops makes enteritis a possibility as well. Recommend clinical correlation. 3. Stable small right pleural effusion with adjacent airspace disease. Results were called to JACOBO GAVIRIA at 08/14/2018 3:46 PM. Report Dictated By: Neno Morgan MD at 08/14/2018 3:09 PM Report E-Signed By: Neno Morgan MD at 08/14/2018 4:07 PM WSN:[email or web address]
== END ==
LOC: CT 13:30
PROVIDERS: ATTEND Nurse Practitioner
DX: R18.8 Other ascites (principal); J90 Pleural effusion, not elsewhere classified
CPT/HCPCS: 74177; Q9967